=== PATIENT | female | born 2000 | race Caucasian/White ===

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

== ENCOUNTER 2019-04-30 19:09 | Emergency (ER) | payer MEDICAID, SELFPAY ==
[2019-04-30 19:10] VITALS: BP 118/73; PULSE 117; RESP 15; TEMP 36.6; O2SAT 100; BMI 20.1
[2019-04-30 19:49] LABS: Mucous, Urine 0 SEEN /hpf (<or=2+); Red Blood Cells-Urine 0 SEEN /hpf (0-5)
[2019-04-30 19:52] LABS: Absolute Lymphocyte Count 5.07 X10^3/uL (0.83-4.51); Absolute Neutrophil Count 2.8 X10^3/uL (2.0-7.7); Basophil% 1.2 % (0-1); Eosinophil# 0.19 X10^3/uL; Eosinophils% 2.2 % (0-5); Hematocrit 45.5 % (37-47); Hemoglobin 15.2 g/dL (12.0-15.0); Lymphocyte # 5.07 X10^3/ul (4.0); Lymphocyte % 58.3 % (19-41); Mean Corp Hgb Conc 33.4 g/dL (32-36); Mean Corpuscular Hgb 30.2 pg (27.0-32.0); Mean Corpuscular Volume 90.5 fL (81-99); Mean Platelet Vol. 10.6 fl (6.2-12.0); Monocyte# 0.55 X10^3/uL; Monocyte% 6.3 % (0-10); NRBC Flagged by Analyzer 0 % (0-5); Neutrophil # 2.76 X10^3/uL (2.7-7.7); Neutrophil % 31.8 % (47-70); POSITIVE DIFFERENTIAL YES; POSITIVE MORPHOLOGY YES; Platelet Count 190 K/mm3 (150-450); RBC Distribution Width CV 12.5 % (11.6-14.6); RBC Distribution Width SD 41.3 fl (35.1-43.9); Red Blood Count 5.03 M/mm3 (4.2-5.4); White Blood Count 8.7 K/mm3 (4.4-11.0)
[2019-04-30 19:55] LABS: Color, Urine Yellow (Yellow); Glucose, Dipstick Normal (Normal); Ketone-Dipstick Negative (Negative); Leukocyte Esterase-Dipstick 25 /ul (Negative); Nitrite-Dipstick Negative (Negative); Occult Blood-Urine Negative /ul (Negative); Protein-Dipstick 15 mg/dl (Negative); Specific Gravity, Urine 1.015 (1.002-1.030); Urine Bilirubin Dipstick Negative (Negative); Urine Clarity Sl. Cloudy (Clear); Urine Urobilinogen Normal (Normal)
[2019-04-30 19:58] LABS: Differential Indicated SCAN CRITERIA MET; Internal QC Validated? YES +Cl - CLEAR BKGD; Pregnancy, Serum, hCG Quali. NEGATIVE Negative
[2019-04-30 20:02] LABS: Anion Gap 5 (5-15); BUN 11 mg/dL (7-18); Bacteria 1+ /hpf (None Seen); Calcium,Total 8.8 mg/dL (8.5-10.1); Chloride 105 mmol/L (98-107); Creatinine, Serum 0.85 mg/dL (0.55-1.02); EST Glomerular Filtration Rate 91 mL/min (>60); Est Glom Filt Rate - Afr Amer 110 mL/min (>60); Estimated Creatinine Clearance 86.55 ml/min; Glucose 84 mg/dL (74-106); Potassium 3.3 mmol/L (3.5-5.1); Sodium Level 140 mmol/L (136-145); Squamous Epithelial Cells - UA 0-5 SEEN /hpf (5-10); White Blood Cells 0-5 SEEN /hpf (0-5)
[2019-04-30 20:37] LABS: Atypical Lymphocyte RARE %; Differential Comment SCANNED; Platelet Estimate ADEQUATE (ADEQ); Reactive Lymphocyte RARE; Red Cell Morphology NORM C+C NORMAL (NORM C&C)
[2019-04-30] MEDS: Ceftriaxone 1 GM/50 ML BAG IV (20:51)
[2019-04-30 20:56] VITALS: BP 114/75; BP 125/84; BP 127/94; PULSE 74; PULSE 78; PULSE 80
--- NOTE | 2019-04-30 20:58 | ED.VIS.GEN ---
History of Present Illness Chief Complaint: Abd Pain Informant: Patient Onset: Weeks - Approximately 4 weeks Context: Gradual Onset Timing: Continuous Quality: Right lower abdomen and right lower back Location: Pain Current Severity: Mild Maximum Severity: Moderate Worsened by: Nothing in particular Relieved by: Nothing Associated Symptoms: Today pain radiated to the anterior right thigh Narrative: Patient is a 18-year-old female with no sniffing past medical history presents with abdominal pain. She is had numerous visits for abdominal pain with no determine etiology. She denies nausea, vomiting diarrhea. She denies dysuria, frequency, urgency or hematuria. She denies anorexia. She denies pain with walking or coughing. There is no history of trauma. She denies history of ovarian cyst or torsion. She is sexually active and does not use any form of control. She denies symptoms of . There is no history of renal ureterolithiasis. I was informed by numerous staff members that patient believe she needs a liter of fluid. Prior similar symptoms: Yes Recent Illness/Hospitalization: No - Past Medical History (1) No significant past medical history Status: Acute Past Medical History - Allergies and Home Meds Allergies/Adverse Reactions: Allergies tree nut Allergy (Verified 04/30/19 19:15) Anaphylaxis Primary Care Physician: Care Physician,No Primary [Primary Care Provider] - Prior records reviewed: Yes Past Medical History: None Surgical History: tonsillectomy Lives: Alone Smoking Status: Current every day smoker Alcohol: None Drugs: Marijuana Review of Systems General: Denies: Chills, Fever, Sweats Eyes: Denies: Visual changes - bilaterally, Blurred Vision - bilaterally, Diplopia ENT: Denies: Rhinorrhea, Sore throat Cardiovascular: Denies: Chest pain, Palpitations Respiratory: Denies: Dyspnea, Cough, Dyspnea on exertion Gastrointestinal: Reports: Abdominal pain, Nausea. Denies: Vomiting, Diarrhea, Constipation, Melena, Hematochezia, -, - Genitourinary: Denies: Dysuria, Hematuria, Frequency Musculoskeletal: Reports: Back pain, Extremity Pain - Anterior right thigh. Denies: Myalgias, Arthralgias, Neck pain, Swelling, -, - Skin: Denies: Rash, Wounds Neurological: Denies: Headache, Weakness, Numbness Hematologic: Denies: Easy bruising, Easy bleeding Allergy: Denies: Uticaria, Swelling of the mouth Physical Exam Vital Signs/Narrative: Vital Signs Temp Pulse Pulse Pulse Pulse Resp BP 04/30/19 20:56 80 74 78 04/30/19 19:10 97.9 F 117 H 15 118/73 BP BP BP Pulse Ox 04/30/19 20:56 114/75 127/94 H 125/84 H 04/30/19 19:10 100 Inital Vital Signs reviewed: Yes General: Well nourished, Well developed, Unkempt, No Acute Distress Head: Normocephalic, Atraumatic Eyes: Perrl, EOMI, -. Negative for: Pale conjunctiva, Scleral icterus ENT: Moist mucous membranes, No rhinorrhea, TM's clear. Negative for: Dry mucous membranes Neck: Supple, Nontender, No lymphadenopathy, No JVD Cardiovascular: Regular rate, Regular rhythm, No murmurs, Normal S1, Normal S2 Respiratory: No distress, CTA bilaterally, Chest nontender Abdomen: Soft, Nontender, Nondistended, Normal bowel sounds, No masses Back: Nontender, Normal Inspection. Negative for: CVA tenderness, Spinal tenderness Extremities: Nontender, No edema. Negative for: Tenderness Skin: Normal color, No rash, No Trauma. Negative for: Cyanosis, Diaphoresis, Jaundice Neurological: Alert, Oriented x3, Cranial nerves II-XII grossly intact, Normal Strength, Normal Sensation, Normal DTR, Normal Gait Psychological: Normal affect, Normal Mood, Depressed Diagnostic/Tx/Re-eval Laboratory Results 04/30/19 19:26: WBC 8.7, RBC 5.03, Hgb 15.2 H, Hct 45.5, MCV 90.5, MCH 30.2, MCHC 33.4, RDW Std Deviation 41.3, RDW Coeff of Shanda 12.5, Plt Count 190, MPV 10.6, Immature Gran % (Auto) 0.200, Neut % (Auto) 31.8 L, Lymph % (Auto) 58.3 H, [place] % (Auto) 6.3, Eos % (Auto) 2.2, Baso % (Auto) 1.2 H, Absolute Neuts (auto) 2.8, Absolute Lymphs (auto) 5.07 H, Nucleated RBC % 0, Differential Comment SCANNED, Atypical Lymphocytes RARE, Reactive Lymphocytes RARE, Platelet Estimate ADEQUATE, RBC Morphology NORM C+C 04/30/19 19:26: Sodium 140, Potassium 3.3 L, Chloride 105, Carbon Dioxide 30.0, Anion Gap 5, BUN 11, Creatinine 0.85, Estim Creat Clear Calc 86.55, Est GFR (MDRD) Af Amer 110, Est GFR (MDRD) Non-Af 91, BUN/Creatinine Ratio 13.0, Glucose 84, Calcium 8.8 04/30/19 19:26: Serum , Qual NEGATIVE 04/30/19 19:26: Urine Color Yellow, Urine Clarity Sl. Cloudy, Urine pH 7.0, Ur Specific [place] 1.015, Urine Protein 15 H, Urine Glucose (UA) Normal, Urine Ketones Negative, Urine Occult Blood Negative, Urine Nitrite Negative, Urine Bilirubin Negative, Urine Urobilinogen Normal, Ur Leukocyte Esterase 25 H, Urine RBC 0 SEEN, Urine WBC 0-5 SEEN, Ur Squamous Epith Cells 0-5 SEEN, Urine Bacteria 1+, Urine Mucus 0 SEEN Hemoglobin slightly elevated. Basic metabolic panel was marked for slight decrease in potassium at 3.3. Serum test is negative. UA reveals bacteria. Patient was given a dose of Rocephin. - Medical Decision Making Patient on patient's cocci symptoms this may represent mesenteric adenitis, dull pain of unknown etiology, irritable bowel syndrome doubt appendicitis since she had symptoms for 1 month. Urinary tract infection is a possibility as well. Work-up was unremarkable. I was informed that she was found on the floor. She is now complaint of right knee pain. We will reexamine. Patient was informed based on her blood tests and urine specific gravity she is not dehydrated and does not require a liter of fluid which she has requested and I have been informed by 3 separate ER staff members. Was reexamined. There is no evidence of trauma or fracture to the extremities. Patient asked what I would do regarding her pain. I informed her since I do not know the exact cause abdominal pain will treat with Bentyl. ED Disposition - Plan for ED Patient: Disposition: Home or Assisted Living Diagnosis: Right lower quadrant abdominal pain, Bacteria in urine Instructions: ABDOMINAL PAIN, Unknown Cause, (Female), Bladder Infection, Female (Adult) Prescriptions: Dicyclomine HCl [Bentyl] 20 mg PO TIDAC #20 cap Prescription Printed Referrals: Care Physician,No Primary [Primary Care Provider] - Additional Instructions: You have a primary care provider. The name of your primary care provider is located on your [employer] insurance card. If you are not better in 2 to 3 days follow-up with that individual.
[2019-04-30] MEDS: Dicyclomine 10 MG Capsule 20 MG PO (21:33)
[2019-04-30 21:35] VITALS: BP 125/84
--- NOTE | 2019-04-30 21:42 | NURSING ---
pt declined wheelchair for discharge. up and out of unit with steady gait.
== END 2019-04-30 21:46 | disposition home or self-care (01) ==
PROVIDERS: Emergency Provider Emergency Medicine
DX: R10.31 Right lower quadrant pain (principal); R82.71 Bacteriuria; F17.200 Nicotine dependence, unspecified, uncomplicated
CPT/HCPCS: 80048; 81001; 84703; 85025; 96365; 99284; J7050; A4216

== ENCOUNTER 2019-08-16 11:39 | Emergency (ER) | payer MEDICAID, SELFPAY ==
[2019-08-16 11:41] VITALS: BP 122/67; PULSE 115; RESP 16; TEMP 36.7; O2SAT 94
[2019-08-16 12:22] LABS: Red Blood Cells-Urine 0 SEEN /hpf (0-5)
[2019-08-16 12:29] LABS: Internal QC Validated? YES +Cl - CLEAR BKGD; Pregnancy, Serum, hCG Quali. NEGATIVE Negative
[2019-08-16 12:41] LABS: Color, Urine Yellow (Yellow); Glucose, Dipstick Normal (Normal); Ketone-Dipstick 5 mg/dl (Negative); Leukocyte Esterase-Dipstick 25 /ul (Negative); Nitrite-Dipstick Negative (Negative); Occult Blood-Urine 10 /ul (Negative); Protein-Dipstick 15 mg/dl (Negative); Specific Gravity, Urine 1.025 (1.002-1.030); Urine Bilirubin Dipstick Negative (Negative); Urine Clarity Clear (Clear); Urine Urobilinogen 1 mg/dl (Normal)
--- NOTE | 2019-08-16 12:47 | ED.VIS.GEN ---
History of Present Illness Chief Complaint: Abd Pain Detail of Chief Complaint: Last normal menstrual period June 23, 2019 Informant: Patient, Family Onset: Days Context: Gradual Onset Timing: Continuous Quality: Pain Location: Suprapubic Current Severity: Mild Maximum Severity: Moderate Worsened by: If patient pushes on her abdomen Relieved by: Nothing Associated Symptoms: Amenorrhea, frequency, breast tenderness and fullness Narrative: Patient is a 18-year-old G0, P0 white female whose last normal menstrual period was June 23, 2019 who presents with symptoms of . She is sexually active. She uses no form of control. She denies fever, chills or night sweats. She does report nausea and vomiting. She has had several home tests which were negative. She reports lightheadedness. She denies headache. Denies visual, ocular auditory symptoms. She denies cardiac or respiratory symptoms. She does not know her blood type. Prior similar symptoms: No Recent Illness/Hospitalization: No - Past Medical History (1) No significant past medical history Status: Acute Past Medical History - Allergies and Home Meds Allergies/Adverse Reactions: Allergies tree nut Allergy (Verified 08/16/19 11:41) Anaphylaxis Primary Care Physician: Care Physician,No Primary [Primary Care Provider] - Prior records reviewed: No Past Medical History: None Surgical History: tonsillectomy Lives: With Family Smoking Status: Current every day smoker Alcohol: None Drugs: None Review of Systems General: Denies: Chills, Fever, Malaise, Subjective, Sweats Eyes: Denies: Visual changes - bilaterally, Diplopia ENT: Denies: Rhinorrhea, Sore throat Cardiovascular: Denies: Chest pain, Palpitations Respiratory: Denies: Dyspnea, Cough, Dyspnea on exertion Gastrointestinal: Reports: Abdominal pain, Nausea, Vomiting Genitourinary: Reports: Frequency Musculoskeletal: Denies: Myalgias, Arthralgias, Neck pain, Back pain, Swelling, Extremity Pain, -, - Skin: Denies: Rash, Wounds Neurological: Denies: Headache, Weakness, Numbness Hematologic: Denies: Easy bruising, Easy bleeding Physical Exam Vital Signs/Narrative: Vital Signs Temp Pulse Resp BP Pulse Ox 08/16/19 11:41 98.1 F 115 H 16 122/67 H 94 Inital Vital Signs reviewed: Yes General: Well nourished, Well developed, No Acute Distress Head: Normocephalic, Atraumatic Eyes: Perrl, EOMI ENT: Moist mucous membranes, No rhinorrhea Neck: Supple, Nontender Cardiovascular: Regular rate, Regular rhythm, No murmurs Respiratory: No distress, CTA bilaterally, Chest nontender Abdomen: Soft, Nondistended, Normal bowel sounds, Tender - Predominately suprapubic tenderness Back: Nontender, Normal Inspection Extremities: Nontender, No edema Skin: Normal color, No rash Neurological: Alert, Oriented x3, Cranial nerves II-XII grossly intact, Normal Strength, Normal Sensation Psychological: Normal affect, Normal Mood Diagnostic/Tx/Re-eval Laboratory Results 08/16/19 08/16/19 12:00 12:15 Serum , Qual NEGATIVE Urine Color Yellow Urine Clarity Clear Urine pH 5.0 Ur Specific [place] 1.025 Urine Protein 15 H Urine Glucose (UA) Normal Urine Ketones 5 H Urine Occult Blood 10 H Urine Nitrite Negative Urine Bilirubin Negative Urine Urobilinogen 1 H Ur Leukocyte Esterase 25 H Urine RBC 0 SEEN Urine WBC 5-10 SEEN Ur Squamous Epith Cells 0-5 SEEN Urine Bacteria 1+ Urine Mucus 1+ Is consistent with infection. Will treat with Macrobid. - Medical Decision Making Pain serum test and UA to assess patient's symptoms and findings. ED Disposition - Plan for ED Patient: Disposition: Home or Assisted Living Diagnosis: Acute cystitis, Amenorrhea Instructions: Urinary Tract Infections in Women, Amenorrhea Prescriptions: Nitrofurantoin Macrocrystals [Macrobid] 100 mg PO Q12 #10 cap Transmission Status: Pending to [facility] #30 Referrals: Care Physician,No Primary [Primary Care Provider] - Additional Instructions: Follow-up with the primary care physician you were assigned to by your insurance carrier, [employer].
[2019-08-16 12:54] LABS: Bacteria 1+ /hpf (None Seen); Mucous, Urine 1+ /hpf (<or=2+); Squamous Epithelial Cells - UA 0-5 SEEN /hpf (5-10); White Blood Cells 5-10 SEEN /hpf (0-5)
[2019-08-16 13:09] VITALS: PULSE 108; RESP 17; O2SAT 98
[2019-08-16] MEDS: Nitrofurantoin Macrocrystals 100 MG Capsule PO (13:09)
== END 2019-08-16 13:20 | disposition home or self-care (01) ==
PROVIDERS: Emergency Provider Emergency Medicine
DX: N30.00 Acute cystitis without hematuria (principal); N91.2 Amenorrhea, unspecified; F17.200 Nicotine dependence, unspecified, uncomplicated
CPT/HCPCS: 81001; 84703; 99284

== ENCOUNTER 2019-09-02 01:15 | Emergency (ER) | payer MEDICAID, SELFPAY ==
[2019-09-02 01:17] VITALS: BP 113/78; PULSE 87; RESP 17; TEMP 36.9; O2SAT 97; BMI 20.8
[2019-09-02 01:31] LABS: Bedside Glucose 98 mg/dL (70-110)
--- NOTE | 2019-09-02 01:35 | ED.DCSUM_ITS ---
History of Present Illness Chief Complaint: General Illness Informant: Patient Narrative: Patient stated that she is concerned about her blood sugar. She has been checking it with her friend's glucometer. It was 60 earlier today. She has been feeling fatigued. It was also 125 before she came in. No history of diabetes. Patient stated that she recently was diagnosed with a urinary tract infection from the emergency department earlier this month. She never got the Macrobid antibiotic from her father who she said he did filled it. She does not talk to her father anymore and does not want to get it from him. She has mild dysuria. Patient stated she is also had a mild cough for the last couple days. No home treatment. Current severity is mild. Past Medical History - Allergies and Home Meds Allergies/Adverse Reactions: Allergies tree nut Allergy (Verified 09/02/19 01:16) Anaphylaxis Primary Care Physician: Care Physician,No Primary [Primary Care Provider] - Prior records reviewed: Yes Past Medical History: None Surgical History: tonsillectomy Lives: With Family Smoking Status: Current every day smoker Alcohol: None Drugs: None Review of Systems General: Denies: Chills, Fever, Sweats Eyes: Denies: Visual changes - bilaterally, Diplopia ENT: Denies: Rhinorrhea, Sore throat Cardiovascular: Denies: Chest pain, Palpitations Respiratory: Reports: Cough. Denies: Dyspnea, Dyspnea on exertion Gastrointestinal: Denies: Abdominal pain, Nausea, Vomiting, Diarrhea, Melena, Hematochezia Genitourinary: Reports: Dysuria. Denies: Hematuria, Frequency Musculoskeletal: Denies: Back pain, Extremity Pain Skin: Denies: Rash, Wounds Neurological: Reports: Weakness. Denies: Headache, Numbness Physical Exam Vital Signs/Narrative: Vital Signs Temp Pulse Resp BP Pulse Ox 09/02/19 01:17 98.5 F 87 17 113/78 97 General: Well nourished, Well developed, No Acute Distress Head: Normocephalic, Atraumatic Eyes: Perrl, EOMI ENT: Moist mucous membranes, No rhinorrhea Neck: Supple, Nontender Cardiovascular: Regular rate, Regular rhythm, No murmurs Respiratory: No distress, CTA bilaterally, Chest nontender Abdomen: Soft, Nontender, Nondistended, Normal bowel sounds Back: Nontender, Normal Inspection Extremities: Nontender, No edema Skin: Normal color, No rash Neurological: Alert, Oriented x3, Cranial nerves II-XII grossly intact, Normal Strength, Normal Sensation Psychological: Normal affect, Normal Mood Diagnostic/Tx/Re-eval - Medical Decision Making Blood sugar normal in the department. Patient urged to stop checking her blood sugar she has no history of diabetes. There is no need to keep checking this as an outpatient. Urine analysis obtained. It is negative for infection. EKG do ne as the patient stated she felt lightheaded earlier today at home with her low blood sugar. EKG shows sinus rhythm at a rate of 80. Sinus arrhythmia noted. No ischemia. Otherwise normal EKG. Patient reassured. At this time she will follow-up as an outpatient ED Disposition - Plan for ED Patient: Disposition: Home or Assisted Living Diagnosis: Low blood sugar reading Instructions: WEAKNESS, Unk Cause Referrals: Sharad Daniel DO [NON CLINICAL AFFILIATE] -
--- NOTE | 2019-09-02 01:49 | EKG12_ITS ---
Test Reason : Blood Pressure : / mmHG Vent. Rate : 080 BPM Atrial Rate : 080 BPM P-R Int : 154 ms QRS Dur : 080 ms QT Int : 358 ms P-R-T Axes : 063 051 025 degrees QTc Int : 412 ms Sinus rhythm with marked sinus arrhythmia Otherwise normal ECG Confirmed by KATIE CUEVAS, GLADYS ([id number]), editor & co founder FRANCISCA GILES ([id number]) on 09/05/2019 9:54:57 AM Referred By: No Primary Care Physician Confirmed By:GLADYS WILSON MD
[2019-09-02 01:50] LABS: Bacteria 0 SEEN /hpf (None Seen); Mucous, Urine 0 SEEN /hpf (<or=2+); Red Blood Cells-Urine 0 SEEN /hpf (0-5); White Blood Cells 0 SEEN /hpf (0-5)
[2019-09-02 01:51] LABS: Color, Urine Yellow (Yellow); Glucose, Dipstick Normal (Normal); Ketone-Dipstick Negative (Negative); Leukocyte Esterase-Dipstick Negative /ul (Negative); Nitrite-Dipstick Negative (Negative); Occult Blood-Urine Negative /ul (Negative); Protein-Dipstick Negative (Negative); Urine Bilirubin Dipstick Negative (Negative); Urine Clarity Clear (Clear); Urine Urobilinogen Normal (Normal); Urine pH 6.5 (5.0 - 8.0)
[2019-09-02 01:58] LABS: Squamous Epithelial Cells - UA 0-5 SEEN /hpf (5-10)
[2019-09-02 02:26] VITALS: PULSE 92; RESP 18; O2SAT 99
--- NOTE | 2019-09-02 02:26 | ED.RN ---
While giving discharge paperwork, PT states she hates this [facility]. My doctor looked at my like I was crazy. I'm going to [facility] you all. This RN gave sympathetic response, encouraged PT to follow up with Dr. Daniel, her PCP or other provider. PT left yelling obscenities.
== END 2019-09-02 02:28 | disposition home or self-care (01) ==
PROVIDERS: Emergency Provider Emergency Medicine
DX: E16.2 Hypoglycemia, unspecified (principal); R30.0 Dysuria; R05 Cough; Z87.440 Personal history of urinary (tract) infections; F17.200 Nicotine dependence, unspecified, uncomplicated
CPT/HCPCS: 81001; 82962; 93005; 99282

== ENCOUNTER 2019-09-06 07:41 | Emergency (ER) | payer MEDICAID, SELFPAY ==
[2019-09-06] VITALS (15 sets, daily range): BP systolic 99–130; BP diastolic 71–86; PULSE 65–102; RESP 12–18; TEMP 36.9; O2SAT 99–100; BMI 19.8
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
[2019-09-06 08:44] LABS: Mucous, Urine 0 SEEN /hpf (<or=2+)
[2019-09-06 08:46] LABS: Color, Urine Amber (Yellow); Glucose, Dipstick Normal (Normal); Ketone-Dipstick 5 mg/dl (Negative); Leukocyte Esterase-Dipstick 100 /ul (Negative); Nitrite-Dipstick Negative (Negative); Occult Blood-Urine 250 /ul (Negative); Protein-Dipstick 30 mg/dl (Negative); Specific Gravity, Urine 1.015 (1.002-1.030); Urine Bilirubin Dipstick Negative (Negative); Urine Clarity Cloudy (Clear); Urine Urobilinogen Normal (Normal)
[2019-09-06 09:06] LABS: Alcohol, Blood (Medical)-Serum < 3.0 mg/dL
[2019-09-06 09:10] LABS: Red Blood Cells-Urine > 100 SEEN /hpf (0-5)
[2019-09-06 09:11] LABS: Bacteria RARE /hpf (None Seen); Squamous Epithelial Cells - UA 0-5 SEEN /hpf (5-10); White Blood Cells 5-10 SEEN /hpf (0-5)
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
--- NOTE | 2019-09-06 10:47 | EKG12_ITS ---
Test Reason : MENTAL HEALTH Blood Pressure : / mmHG Vent. Rate : 101 BPM Atrial Rate : 101 BPM P-R Int : 168 ms QRS Dur : 078 ms QT Int : 326 ms P-R-T Axes : 051 046 -07 degrees QTc Int : 422 ms Sinus tachycardia Otherwise normal ECG Confirmed by MARCO A CUEVAS, ABRAHAN ([id number]), fashion editor FRANCISCA GILES ([id number]) on 09/08/2019 2:33:02 PM Referred By: ELIS Confirmed By:VIRGINIA STRICKLAND MD
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
[2019-09-06 11:05] LABS: Internal QC Validated? YES +Cl - CLEAR BKGD
[2019-09-06 11:09] LABS: Pregnancy, Urine Negative Negative
[2019-09-06 11:10] LABS: Absolute Lymphocyte Count 2.45 X10^3/uL (0.83-4.51); Absolute Neutrophil Count 2.6 X10^3/uL (2.0-7.7); Basophil# 0.07 X10^3/uL; Basophil% 1.2 % (0-1); Eosinophil# 0.19 X10^3/uL; Eosinophils% 3.4 % (0-5); Hematocrit 39.5 % (37-47); Hemoglobin 13.5 g/dL (12.0-15.0); Lymphocyte # 2.45 X10^3/ul (4.0); Lymphocyte % 43.6 % (19-41); Mean Corp Hgb Conc 34.2 g/dL (32-36); Mean Corpuscular Hgb 29.9 pg (27.0-32.0); Mean Corpuscular Volume 87.4 fL (81-99); Mean Platelet Vol. 10.5 fl (6.2-12.0); Monocyte# 0.32 X10^3/uL; Monocyte% 5.7 % (0-10); NRBC Flagged by Analyzer 0 % (0-5); Neutrophil # 2.58 X10^3/uL (2.7-7.7); Neutrophil % 45.9 % (47-70); Platelet Count 247 K/mm3 (150-450); RBC Distribution Width CV 11.9 % (11.6-14.6); RBC Distribution Width SD 38.3 fl (35.1-43.9); Red Blood Count 4.52 M/mm3 (4.2-5.4); White Blood Count 5.6 K/mm3 (4.4-11.0)
[2019-09-06 11:18] LABS: ALB/GLOB Ratio 1.2 RATIO (0.9-2.4); AST(SGOT) 15 U/L (15-37); Alanine Aminotransfer ALT/SGPT 20 U/L (13-56); Alkaline Phosphatase 45 U/L (45-117); Anion Gap 3 (5-15); BUN 10 mg/dL (7-18); BUN/Creat Ratio 11.8 RATIO (10-20); Calcium,Total 8.9 mg/dL (8.5-10.1); Chloride 109 mmol/L (98-107); Creatinine, Serum 0.85 mg/dL (0.55-1.02); EST Glomerular Filtration Rate 91 mL/min (>60); Est Glom Filt Rate - Afr Amer 110 mL/min (>60); Estimated Creatinine Clearance 85.38 ml/min; Globulin 3.3 g/dL (2.2-4.2); Glucose 98 mg/dL (74-106); Potassium 3.4 mmol/L (3.5-5.1); Protein, Total 7.3 g/dL (6.4-8.2); Sodium Level 140 mmol/L (136-145)
[2019-09-06 11:24] LABS: Amphetamine Urine VISTA NEGATIVE (<1000 ng/mL); Barbiturate Urine VISTA NEGATIVE (< 200 ng/mL); Benzodiazepine Urine VISTA NEGATIVE (< 200 ng/mL); Cocaine Urine VISTA NEGATIVE (< 300 ng/mL); Ecstacy Urine VISTA NEGATIVE (< 500 ng/mL); Methadone Urine VISTA NEGATIVE (< 300 ng/mL); PCP Urine VISTA NEGATIVE (< 25 ng/mL); THC Urine VISTA POSITIVE (< 50 ng/mL); Vista UDS pH Range 7
[2019-09-06] MEDS: Smz/Tmp Ds Tablet 1 TABLET PO ×2 (11:56→21:01)
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
[2019-09-06] MEDS: LORazepam 0.5 MG Tablet PO (14:34)
[2019-09-06] MEDS: Mag Hydrox/Al Hydrox/Simeth 30 ML UDC PO (14:34)
--- NOTE | 2019-09-06 16:11 | CHAPLAIN ---
Type of Pastoral Visit _x__ Initial Visit ___ Follow-up Visit ___ On-call Visit ___ General Patient Visit ___ Spiritual Assessment ___ Family Conference ___ Bereavement ___ Rapid Response ___ Code Blue ___ Other (describe below) Pastoral Care Referral From _x__ Patient ___ Family _x__ Nurse ___ Physician ___ Automobile Accessories Salesperson ___ Cloth Winder Machine Operator ___ Other (describe below) Sacrament/Intervention _x__ Active listening ___ Anointing ___ Oriental Orthodox ___ Bereavement ___ Communion _x__ Katya exploration ___ _x__ Life review _x__ Prayer ___ Reconciliation ___ Sacrament of Sick _x__ Supportive presence ___ Wedding ___ Other (describe below) Pastoral Comments this superintendent fish hatchery was contacted by RN at request of the patient; pt gives her story about events for today and admits that going to a [facility] hospital may be what she needs to get her meds corrected and for help; pt welcomes someone to talk to and the prayer given; pt is calm during this encounter;
[2019-09-06] MEDS: Acetaminophen 500 MG Tablet 1000 MG PO (21:01)
[2019-09-06] MEDS: busPIRone 5 MG Tablet 10 MG PO (21:02)
[2019-09-07] VITALS (8 sets, daily range): BP systolic 99–106; BP diastolic 57–76; PULSE 65–111; RESP 14–18; O2SAT 99–100
[2019-09-07] MEDS: busPIRone 5 MG Tablet 10 MG PO (08:28)
[2019-09-07] MEDS: Smz/Tmp Ds Tablet 1 TABLET PO (08:29)
== END 2019-09-07 08:37 ==
PROVIDERS: Emergency Provider Emergency Medicine
DX: F41.8 Other specified anxiety disorders (principal); N30.00 Acute cystitis without hematuria; R45.851 Suicidal ideations; R05 Cough; J34.89 Other specified disorders of nose and nasal sinuses; Z79.899 Other long term (current) drug therapy; F17.200 Nicotine dependence, unspecified, uncomplicated
CPT/HCPCS: 80053; 80307; 80320; 81001; 81025; 85025; 87086; 87088; 93005; 99285; G0480

== ENCOUNTER 2019-11-25 19:45 | Emergency (ER) | payer MEDICAID, SELFPAY ==
[2019-09-06 07:43] VITALS: BMI 19.8
[2019-11-25 19:45] VITALS: BP 111/78; PULSE 100; RESP 16; TEMP 36.9; O2SAT 100; BMI 21.2
--- NOTE | 2019-11-25 19:53 | EKG12_ITS ---
Test Reason : SOB Blood Pressure : / mmHG Vent. Rate : 099 BPM Atrial Rate : 099 BPM P-R Int : 146 ms QRS Dur : 082 ms QT Int : 330 ms P-R-T Axes : 062 058 032 degrees QTc Int : 423 ms Normal sinus rhythm with sinus arrhythmia Normal ECG Confirmed by KATIE CUEVAS, GLADYS ([id number]), development editor SAV MERCEDES ([id number]) on 11/27/2019 8:31:01 AM Referred By: FARIDA Confirmed By:GLADYS WILSON MD
--- NOTE | 2019-11-25 19:54 | ED.VIS.GEN ---
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 She states for the past 2 to 3 days she has had nausea some vomiting and believes that she is . Last menstrual period was October 19. She also notes an associated cough and rhinorrhea. She states she felt poorly earlier and felt like she may pass out. She also notes the pain to her right middle quadrant of her abdomen. On a social note the patient states that she is homeless but currently staying at a friend's relatives house. Past Medical History - Allergies and Home Meds Allergies/Adverse Reactions: Allergies tree nut Allergy (Verified 11/25/19 19:51) Anaphylaxis Primary Care Physician: Katina Bonilla MD [STAFF PHYSICIAN] - (call to arrange follow up appointment with gynecology) Surgical History: tonsillectomy Smoking Status: Current every day smoker Review of Systems General: Reports: Malaise. Denies: Chills, Fever, Sweats Eyes: Denies: Visual changes - bilaterally, Diplopia ENT: Reports: Rhinorrhea. Denies: Sore throat Cardiovascular: Denies: Chest pain, Palpitations Respiratory: Reports: Dyspnea, Cough. Denies: Dyspnea on exertion Gastrointestinal: Reports: Nausea, Vomiting. Denies: Abdominal pain, Diarrhea, Melena, Hematochezia Genitourinary: Reports: - - Concern for . Denies: Dysuria, Hematuria, Frequency Musculoskeletal: Denies: Back pain, Extremity Pain Skin: Denies: Rash, Wounds Neurological: Denies: Headache, Weakness, Numbness Physical Exam Vital Signs/Narrative: Vital Signs Temp Pulse Resp BP Pulse Ox 11/25/19 19:45 98.5 F 100 16 111/78 100 General: Well nourished, Well developed, No Acute Distress Head: Normocephalic, Atraumatic Eyes: Perrl, EOMI ENT: Moist mucous membranes, Nasal congestion Neck: Supple, Nontender Cardiovascular: Regular rate, No murmurs, Tachycardia Respiratory: No distress, CTA bilaterally, Chest nontender Abdomen: Soft, Nontender, Nondistended, Normal bowel sounds Back: Nontender, Normal Inspection Extremities: Nontender, No edema Skin: Normal color, No rash Neurological: Alert, Oriented x3, Cranial nerves II-XII grossly intact, Normal Strength, Normal Sensation Psychological: Normal affect, Normal Mood Diagnostic/Tx/Re-eval - EKG Initial EKG Interpretation: Sinus Rhythm, Sinus Arrythmia - KG showed a normal sinus rhythm with a sinus arrhythmia at a rate of 99 without ectopy or concerning features for ACS. - Medical Decision Making Basic labs were normal. test was normal. Urinalysis negative. EKG showed a sinus rhythm with a sinus arrhythmia at a rate of 99. She received IV fluids and Zofran. At this point patient will be discharged home. I have asked that she follow-up with FINANCE CONTROLLER for her late menstrual cycle. I will write for Zofran at home. ED Disposition - Plan for ED Patient: Disposition: Home or Assisted Living Diagnosis: Near syncope, Vomiting Instructions: ED Near Syncope Vasovagal, ED Nausea Vomiting Adult Prescriptions: Ondansetron [Zofran Odt] 4 mg PO Q6H PRN PRN #14 tab PRN Reason: Nausea Transmission Status: Pending to [facility] #30 Referrals: Katina Bonilla MD [STAFF PHYSICIAN] - (call to arrange follow up appointment with gynecology)
[2019-11-25] MEDS: 0.9% Normal Saline 1,000 ML 1000 ML IV (20:15)
[2019-11-25] MEDS: Ondansetron 4 MG/2 ML Vial IV (20:15)
[2019-11-25 21:22] LABS: Bacteria 0 SEEN /hpf (None Seen); Mucous, Urine 0 SEEN /hpf (<or=2+); Red Blood Cells-Urine 0 SEEN /hpf (0-5)
[2019-11-25 21:26] LABS: Color, Urine Yellow (Yellow); Glucose, Dipstick Normal (Normal); Ketone-Dipstick Negative (Negative); Leukocyte Esterase-Dipstick 25 /ul (Negative); Nitrite-Dipstick Negative (Negative); Occult Blood-Urine Negative /ul (Negative); Protein-Dipstick Negative (Negative); Specific Gravity, Urine 1.015 (1.002-1.030); Urine Bilirubin Dipstick Negative (Negative); Urine Clarity Clear (Clear); Urine Urobilinogen Normal (Normal); Urine pH 6.5 (5.0 - 8.0)
[2019-11-25 21:27] LABS: Absolute Lymphocyte Count 3.62 X10^3/uL (0.83-4.51); Absolute Neutrophil Count 3.5 X10^3/uL (2.0-7.7); Basophil# 0.06 X10^3/uL; Basophil% 0.7 % (0-1); Eosinophil# 0.17 X10^3/uL; Eosinophils% 2.1 % (0-5); Hematocrit 44.7 % (37-47); Hemoglobin 14.9 g/dL (12.0-15.0); Lymphocyte # 3.62 X10^3/ul (4.0); Lymphocyte % 44.9 % (19-41); Mean Corp Hgb Conc 33.3 g/dL (32-36); Mean Corpuscular Hgb 30.6 pg (27.0-32.0); Mean Corpuscular Volume 91.8 fL (81-99); Mean Platelet Vol. 10.6 fl (6.2-12.0); Monocyte# 0.65 X10^3/uL; Monocyte% 8.1 % (0-10); NRBC Flagged by Analyzer 0 % (0-5); Neutrophil # 3.54 X10^3/uL (2.7-7.7); Platelet Count 278 K/mm3 (150-450); RBC Distribution Width CV 12.8 % (11.6-14.6); RBC Distribution Width SD 42.5 fl (35.1-43.9); Red Blood Count 4.87 M/mm3 (4.2-5.4); White Blood Count 8.1 K/mm3 (4.4-11.0)
[2019-11-25 21:31] LABS: Squamous Epithelial Cells - UA 5-10 SEEN /hpf (5-10)
[2019-11-25 21:32] LABS: White Blood Cells 0-5 SEEN /hpf (0-5)
[2019-11-25 21:35] LABS: Internal QC Validated? YES +Cl - CLEAR BKGD; Pregnancy, Serum, hCG Quali. NEGATIVE Negative
[2019-11-25 21:41] LABS: ALB/GLOB Ratio 1.3 RATIO (0.9-2.4); AST(SGOT) 36 U/L (15-37); Alanine Aminotransfer ALT/SGPT 40 U/L (13-56); Albumin, Serum 4.3 g/dL (3.2-5.0); Alkaline Phosphatase 59 U/L (45-117); Anion Gap 3 (5-15); BUN 13 mg/dL (7-18); BUN/Creat Ratio 16.5 RATIO (10-20); Calcium,Total 9.4 mg/dL (8.5-10.1); Chloride 107 mmol/L (98-107); Creatinine, Serum 0.79 mg/dL (0.55-1.02); EST Glomerular Filtration Rate 99 mL/min (>60); Est Glom Filt Rate - Afr Amer 120 mL/min (>60); Estimated Creatinine Clearance 93.97 ml/min; Globulin 3.4 g/dL (2.2-4.2); Glucose 78 mg/dL (74-106); Potassium 3.9 mmol/L (3.5-5.1); Protein, Total 7.7 g/dL (6.4-8.2); Sodium Level 140 mmol/L (136-145)
[2019-11-25 22:04] VITALS: BP 101/72; PULSE 84; RESP 17
== END 2019-11-25 22:05 | disposition home or self-care (01) ==
PROVIDERS: Emergency Provider Emergency Medicine
DX: R55 Syncope and collapse (principal); R11.10 Vomiting, unspecified; R05 Cough; J34.89 Other specified disorders of nose and nasal sinuses; R06.00 Dyspnea, unspecified; R10.13 Epigastric pain; Z59.0 Homelessness; F17.200 Nicotine dependence, unspecified, uncomplicated
CPT/HCPCS: 80053; 81001; 84703; 85025; 93005; 96361; 96374; 99285; J7030; J2405

== ENCOUNTER 2019-11-28 12:47 | Emergency (ER) | payer MEDICAID, SELFPAY ==
[2019-11-28 12:47] VITALS: BP 99/69; PULSE 87; RESP 16; TEMP 36.7; O2SAT 99; BMI 20.5
--- NOTE | 2019-11-28 12:59 | RAD_ITS ---
STUDY: X-RAY - RIGHT FOOT CLINICAL: Female, 19 years old. PT FELL DOWN STAIRS LAST NIGHT, PAIN TECHNIQUE: 3 view(s) of the foot. COMPARISON: None. FINDINGS: Normal talus, calcaneus, and tarsal bones. Normal visualized subtalar, talonavicular, calcaneocuboid, tarsal and tarsometatarsal articulations. Normal metatarsi. Normal metatarsophalangeal joint of the great toe. Normal tibial and fibular sesamoid bones. Normal interphalangeal joint of the great toe. Normal phalanges of the great toe. Normal second through fifth metatarsophalangeal joints. Normal interphalangeal joints and phalanges of the lesser toes. The soft tissue structures are unremarkable. RAD/Foot min 3 Views IMPRESSION: Normal x-ray examination of the foot. Electronically Signed: Chris Romero, at 13:17 EDT , Service support ,
--- NOTE | 2019-11-28 12:59 | RAD_ITS ---
STUDY: X-RAY - LEFT FOOT CLINICAL: Female, 19 years old. PT FELL DOWN STAIRS LAST NIGHT, PAIN TECHNIQUE: 3 view(s) of the foot. COMPARISON: None. FINDINGS: Normal talus, calcaneus, and tarsal bones. Normal visualized subtalar, talonavicular, calcaneocuboid, tarsal and tarsometatarsal articulations. Normal metatarsi. Normal metatarsophalangeal joint of the great toe. Normal tibial and fibular sesamoid bones. Normal interphalangeal joint of the great toe. Normal phalanges of the great toe. Normal second through fifth metatarsophalangeal joints. Normal interphalangeal joints and phalanges of the lesser toes. The soft tissue structures are unremarkable. RAD/Foot min 3 Views IMPRESSION: Normal x-ray examination of the foot. Electronically Signed: Chris Romero, at 13:18 EDT , Service support ,
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
[2019-11-28] MEDS: Ibuprofen 600 MG Tablet PO (13:36)
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
== END 2019-11-28 13:54 | disposition home or self-care (01) ==
LOC: ED 13:35
PROVIDERS: Emergency Provider Emergency Medicine
DX: M79.671 Pain in right foot (principal); M79.672 Pain in left foot; M79.89 Other specified soft tissue disorders; W10.9XXA Fall (on) (from) unspecified stairs and steps, initial encounter; Y93.9 Activity, unspecified; Y92.9 Unspecified place or not applicable; Z59.0 Homelessness; F17.200 Nicotine dependence, unspecified, uncomplicated
CPT/HCPCS: 73630; 99282

== ENCOUNTER 2019-12-07 10:42 | Emergency (ER) | payer MEDICAID, SELFPAY ==
[2019-12-07 10:43] VITALS: BP 108/74; PULSE 98; RESP 16; TEMP 36.9; O2SAT 100; BMI 21.9
[2019-12-07 11:07] LABS: Absolute Lymphocyte Count 2.48 X10^3/uL (0.83-4.51); Basophil# 0.05 X10^3/uL; Basophil% 0.8 % (0-1); Eosinophil# 0.18 X10^3/uL; Eosinophils% 2.9 % (0-5); Hemoglobin 13.3 g/dL (12.0-15.0); Lymphocyte # 2.48 X10^3/ul (4.0); Mean Corp Hgb Conc 33.3 g/dL (32-36); Mean Corpuscular Hgb 30.9 pg (27.0-32.0); Mean Platelet Vol. 10.2 fl (6.2-12.0); Monocyte# 0.46 X10^3/uL; Monocyte% 7.4 % (0-10); NRBC Flagged by Analyzer 0 % (0-5); Neutrophil # 3.01 X10^3/uL (2.7-7.7); Neutrophil % 48.6 % (47-70); Platelet Count 233 K/mm3 (150-450); RBC Distribution Width CV 12.3 % (11.6-14.6); RBC Distribution Width SD 42.2 fl (35.1-43.9); White Blood Count 6.2 K/mm3 (4.4-11.0)
[2019-12-07] MEDS: 0.9% Normal Saline 1,000 ML 1000 ML IV (11:07)
[2019-12-07] MEDS: Ondansetron 4 MG/2 ML Vial IV (11:08)
[2019-12-07] MEDS: Ketorolac 15 MG/ML Vial IV (11:09)
[2019-12-07 11:33] LABS: hCG Titer Quant., Serum < 1 mIU/mL (1-3)
--- NOTE | 2019-12-07 11:40 | ED.DCSUM_ITS ---
- ER Visit Summary Date of Service: 12/07/19 Chief Complaint: Vaginal bleeding History of Present Illness: The patient is a 19 F with no branch officer or primary care physician. She reports that she has vaginal bleeding that began yesterday. Currently it is spotting. She reports that at worst it was running down my legs. She reports that her last menstrual period was October 31. When asked if she has been previously she reports yes, but when asked how many times she reports I do not know. Patient complains of cramping suprapubic pain is 10 of 10 at worst and 7 out of 10 currently. Is worsened by movement and relieved by remaining still. She denies any dysuria or frequency. Physical Examination: Vitals: Stable. Afebrile. General: Well-nourished and well-developed. Head: Normocephalic atraumatic. Neck: Supple, no lymphadenopathy. No JVD. Nontender. Cardiovascular: Regular rate and rhythm. No murmurs. Respiratory: No respiratory distress. Clear to auscultation bilaterally. Abdominal: Soft, mild suprapubic tenderness to palpation, nondistended, normal bowel sounds. No guarding, rebound, or peritoneal signs. Back: Nontender. Extremities: Nontender, no edema. Skin: Normal color, no rash. Neurologic: Alert and oriented ?3. Cranial nerves II through XII are intact. Normal strength and sensation. Psych: Normal affect. Test Results: CBC is normal. Quantitative hCG is less than 1. Pelvic ultrasound was canceled when the test returned negative. Emergency Department Course and Treatment: Patient was given a dose of Toradol and Zofran IV. She was given a liter normal saline. She is resting comfortably. Treatment Plan: Patient will be discharged with Zofran for her nausea. Instructed use Tylenol and/or ibuprofen for pain. Follow-up with Dr. Johnson as needed. Return to the emergency department for any worsening symptoms. Disposition: To home in improved and stable condition. Impression: 1. Vaginal bleeding. This note was generated with [employer] dictation software. It may contain incorrect words, spelling, and punctuation that were not noted in review of the chart prior to signing ED Disposition - Plan for ED Patient: Instructions: ED Bleed Irregular Vaginal Prescriptions: Ondansetron [Zofran Odt] 4 mg PO Q8H PRN PRN #10 tablet PRN Reason: Nausea Referrals: Allyson Johnson DO [STAFF PHYSICIAN] - 1 Week if not improving
== END 2019-12-07 12:22 | disposition home or self-care (01) ==
PROVIDERS: Emergency Provider Emergency Medicine
DX: N93.9 Abnormal uterine and vaginal bleeding, unspecified (principal); R10.2 Pelvic and perineal pain; R68.83 Chills (without fever); R11.2 Nausea with vomiting, unspecified; R51 Headache; J45.909 Unspecified asthma, uncomplicated; F17.200 Nicotine dependence, unspecified, uncomplicated
CPT/HCPCS: 84702; 85025; 86900; 86901; 96361; 96374; 96375; 99285; J7030; J2405

== ENCOUNTER 2020-01-09 09:28 | Emergency (ER) | payer MEDICAID, SELFPAY ==
[2020-01-09 09:29] VITALS: BP 105/64; PULSE 86; RESP 16; TEMP 36.7; O2SAT 100; BMI 23.6
--- NOTE | 2020-01-09 09:36 | EKG12_ITS ---
Test Reason : WEAKNESS Blood Pressure : / mmHG Vent. Rate : 076 BPM Atrial Rate : 076 BPM P-R Int : 164 ms QRS Dur : 084 ms QT Int : 384 ms P-R-T Axes : 060 061 004 degrees QTc Int : 432 ms Normal sinus rhythm Normal ECG Confirmed by KEVAN GRIFFITH ([id number]), material expeditor SAV MERCEDES ([id number]) on 01/11/2020 2:32:24 PM Referred By: OLIVER Confirmed By:KEVAN GRIFFITH
--- NOTE | 2020-01-09 09:37 | ED.VIS.GEN ---
History of Present Illness Chief Complaint: Weakness Informant: Patient Onset: Yesterday Narrative: Sent secondary to generalized weakness and concern for dehydration. She states she is homeless and has not been drinking much. She reports feeling weak and lightheaded. She claims of passed out 4 times yesterday and twice today. Throughout my entire interview she is texting on her phone would not look away from her phone to answer questions. - Past Medical History (1) Anxiety with depression Status: Chronic Past Medical History - Allergies and Home Meds Allergies/Adverse Reactions: Allergies tree nut Allergy (Verified 01/09/20 09:33) Anaphylaxis Primary Care Physician: Care Physician,No Primary [Primary Care Provider] - Prior records reviewed: Yes Surgical History: tonsillectomy Lives: Homeless Smoking Status: Current every day smoker Review of Systems General: Denies: Chills, Fever Eyes: Denies: Visual changes - bilaterally ENT: Denies: Bilateral ear pain Cardiovascular: Denies: Chest pain Respiratory: Denies: Dyspnea Gastrointestinal: Denies: Nausea, Vomiting Genitourinary: Denies: Dysuria Musculoskeletal: Reports: Extremity Pain - Feet and ankles are sore Skin: Denies: Rash Neurological: Reports: Weakness - Generalized weakness. Denies: Headache Hematologic: Denies: Easy bruising, Easy bleeding Allergy: Denies: Uticaria Physical Exam Vital Signs/Narrative: Vital Signs Temp Pulse Resp BP Pulse Ox 01/09/20 09:29 98.0 F 86 16 105/64 100 Inital Vital Signs reviewed: Yes General: Well nourished, Well developed Head: Normocephalic ENT: Moist mucous membranes Neck: Supple Cardiovascular: Regular rate, Regular rhythm Respiratory: No distress Abdomen: Soft, Nontender Extremities: Nontender Skin: Normal color Neurological: Alert, Oriented x3 Psychological: Normal affect Diagnostic/Tx/Re-eval Laboratory Results 01/09/20 01/09/20 01/09/20 09:30 09:30 09:30 WBC 4.4 RBC 4.15 L Hgb 12.8 Hct 38.4 MCV 92.5 MCH 30.8 MCHC 33.3 RDW Std Deviation 40.8 RDW Coeff of Shanda 12.2 Plt Count 211 MPV 10.1 Immature Gran % (Auto) 0.200 Neut % (Auto) 36.3 L Lymph % (Auto) 49.3 H [place] % (Auto) 8.1 Eos % (Auto) 5.4 H Baso % (Auto) 0.7 Absolute Neuts (auto) 1.6 L Absolute Lymphs (auto) 2.19 Nucleated RBC % 0 Sodium 144 Potassium 3.3 L Chloride 108 H Carbon Dioxide 29.0 Anion Gap 7 BUN 24 H Creatinine 0.81 Estim Creat Clear Calc 91.65 Est GFR (MDRD) Af Amer 116 Est GFR (MDRD) Non-Af 96 BUN/Creatinine Ratio 29.7 H Glucose 104 Calcium 8.6 Serum , Qual NEGATIVE Urine Color Urine Clarity Urine pH Ur Specific [place] Urine Protein Urine Glucose (UA) Urine Ketones Urine Occult Blood Urine Nitrite Urine Bilirubin Urine Urobilinogen Ur Leukocyte Esterase Urine RBC Urine WBC Ur Squamous Epith Cells Urine Bacteria Urine Mucus 01/09/20 11:12 WBC RBC Hgb Hct MCV MCH MCHC RDW Std Deviation RDW Coeff of Shanda Plt Count MPV Immature Gran % (Auto) Neut % (Auto) Lymph % (Auto) [place] % (Auto) Eos % (Auto) Baso % (Auto) Absolute Neuts (auto) Absolute Lymphs (auto) Nucleated RBC % Sodium Potassium Chloride Carbon Dioxide Anion Gap BUN Creatinine Estim Creat Clear Calc Est GFR (MDRD) Af Amer Est GFR (MDRD) Non-Af BUN/Creatinine Ratio Glucose Calcium Serum , Qual Urine Color Yellow Urine Clarity Sl. Cloudy Urine pH 7.0 Ur Specific [place] 1.010 Urine Protein Negative Urine Glucose (UA) Normal Urine Ketones Negative Urine Occult Blood Negative Urine Nitrite Negative Urine Bilirubin Negative Urine Urobilinogen Normal Ur Leukocyte Esterase Negative Urine RBC 0 SEEN Urine WBC 0-5 SEEN Ur Squamous Epith Cells 0-5 SEEN Urine Bacteria 0 SEEN Urine Mucus 0 SEEN - EKG Initial EKG Interpretation: Sinus Rhythm - Sinus at 76. No acute ischemia. - Medical Decision Making Patient was given a liter IV fluids here. She is given 40 mEq of potassium for slight hypokalemia. No evidence of dehydration on lab work or urinalysis. ED Disposition - Plan for ED Patient: Disposition: Home or Assisted Living Diagnosis: Generalized weakness Instructions: ED Weakness [facility] Referrals: Anahi Baldwin MD [STAFF PHYSICIAN] - As Needed
[2020-01-09] MEDS: 0.9% Normal Saline 1,000 ML 1000 ML IV (09:40)
[2020-01-09 09:59] LABS: Absolute Lymphocyte Count 2.19 X10^3/uL (0.83-4.51); Absolute Neutrophil Count 1.6 X10^3/uL (2.0-7.7); Basophil# 0.03 X10^3/uL; Basophil% 0.7 % (0-1); Eosinophil# 0.24 X10^3/uL; Eosinophils% 5.4 % (0-5); Hematocrit 38.4 % (37-47); Hemoglobin 12.8 g/dL (12.0-15.0); Lymphocyte # 2.19 X10^3/ul (4.0); Lymphocyte % 49.3 % (19-41); Mean Corp Hgb Conc 33.3 g/dL (32-36); Mean Corpuscular Hgb 30.8 pg (27.0-32.0); Mean Corpuscular Volume 92.5 fL (81-99); Mean Platelet Vol. 10.1 fl (6.2-12.0); Monocyte# 0.36 X10^3/uL; Monocyte% 8.1 % (0-10); NRBC Flagged by Analyzer 0 % (0-5); Neutrophil # 1.61 X10^3/uL (2.7-7.7); Neutrophil % 36.3 % (47-70); Platelet Count 211 K/mm3 (150-450); RBC Distribution Width CV 12.2 % (11.6-14.6); RBC Distribution Width SD 40.8 fl (35.1-43.9); Red Blood Count 4.15 M/mm3 (4.2-5.4); White Blood Count 4.4 K/mm3 (4.4-11.0)
[2020-01-09 10:01] LABS: Anion Gap 7 (5-15); BUN 24 mg/dL (7-18); BUN/Creat Ratio 29.7 RATIO (10-20); Calcium,Total 8.6 mg/dL (8.5-10.1); Chloride 108 mmol/L (98-107); Creatinine, Serum 0.81 mg/dL (0.55-1.02); EST Glomerular Filtration Rate 96 mL/min (>60); Est Glom Filt Rate - Afr Amer 116 mL/min (>60); Estimated Creatinine Clearance 91.65 ml/min; Glucose 104 mg/dL (74-106); Potassium 3.3 mmol/L (3.5-5.1); Sodium Level 144 mmol/L (136-145)
[2020-01-09 10:21] LABS: Internal QC Validated? YES +Cl - CLEAR BKGD
[2020-01-09 10:22] LABS: Pregnancy, Serum, hCG Quali. NEGATIVE Negative
[2020-01-09 11:15] LABS: Bacteria 0 SEEN /hpf (None Seen); Mucous, Urine 0 SEEN /hpf (<or=2+)
[2020-01-09 11:17] LABS: Color, Urine Yellow (Yellow); Glucose, Dipstick Normal (Normal); Ketone-Dipstick Negative (Negative); Leukocyte Esterase-Dipstick Negative /ul (Negative); Nitrite-Dipstick Negative (Negative); Occult Blood-Urine Negative /ul (Negative); Protein-Dipstick Negative (Negative); Urine Bilirubin Dipstick Negative (Negative); Urine Clarity Sl. Cloudy (Clear); Urine Urobilinogen Normal (Normal)
[2020-01-09 11:24] LABS: Red Blood Cells-Urine 0 SEEN /hpf (0-5); Squamous Epithelial Cells - UA 0-5 SEEN /hpf (5-10); White Blood Cells 0-5 SEEN /hpf (0-5)
[2020-01-09 11:58] VITALS: RESP 18
== END 2020-01-09 12:00 | disposition home or self-care (01) ==
PROVIDERS: Emergency Provider Emergency Medicine
DX: R53.1 Weakness (principal); E87.6 Hypokalemia; M79.672 Pain in left foot; M79.671 Pain in right foot; M25.572 Pain in left ankle and joints of left foot; M25.571 Pain in right ankle and joints of right foot; Z59.0 Homelessness; F17.200 Nicotine dependence, unspecified, uncomplicated
CPT/HCPCS: 80048; 81001; 84703; 85025; 93005; 96360; 99285; A4216

== ENCOUNTER 2020-01-27 16:38 | Emergency (ER) | payer MEDICAID, SELFPAY ==
[2020-01-27 16:39] VITALS: BP 121/84; PULSE 99; RESP 16; TEMP 37.1; O2SAT 99; BMI 23.8
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
--- NOTE | 2020-01-27 17:17 | ED.RN ---
PT CAME TO NURSES STATION STATING SHE DOESNT WANT TO BE HERE AND NO LONGER WANTS ANY TESTING DONE. PT LEAVES DEPARTMENT AND EXITS BUILDING.
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
== END 2020-01-27 17:39 | disposition left against medical advice (07) ==
LOC: ED 17:17
PROVIDERS: Emergency Provider Emergency Medicine
DX: S09.90XA Unspecified injury of head, initial encounter (principal); S60.221A Contusion of right hand, initial encounter; S60.222A Contusion of left hand, initial encounter; J02.9 Acute pharyngitis, unspecified; H53.8 Other visual disturbances; M54.2 Cervicalgia; M54.9 Dorsalgia, unspecified; R11.2 Nausea with vomiting, unspecified; Y04.0XXA Assault by unarmed brawl or fight, initial encounter; Y93.9 Activity, unspecified; Y92.9 Unspecified place or not applicable; J45.909 Unspecified asthma, uncomplicated; F41.9 Anxiety disorder, unspecified; Z79.899 Other long term (current) drug therapy; F17.200 Nicotine dependence, unspecified, uncomplicated
CPT/HCPCS: 99284

== ENCOUNTER 2020-02-12 19:17 | Emergency (ER) | payer MEDICAID, SELFPAY ==
[2020-02-12 19:18] VITALS: BP 116/72; PULSE 104; RESP 18; TEMP 37; O2SAT 98; BMI 19.2
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
== END 2020-02-12 21:30 | disposition home or self-care (01) ==
PROVIDERS: Emergency Provider Emergency Medicine
DX: S63.502A Unspecified sprain of left wrist, initial encounter (principal); S60.222A Contusion of left hand, initial encounter; W51.XXXA Accidental striking against or bumped into by another person, initial encounter; Y93.9 Activity, unspecified; Y92.9 Unspecified place or not applicable; F17.200 Nicotine dependence, unspecified, uncomplicated
CPT/HCPCS: 73110; 99284

== ENCOUNTER 2020-03-06 15:05 | Emergency (ER) | payer MEDICAID, SELFPAY ==
[2020-03-06 15:07] VITALS: BP 91/66; PULSE 76; RESP 18; TEMP 36.8; O2SAT 100; BMI 24.3
--- NOTE | 2020-03-06 15:46 | US_ITS ---
STUDY: ULTRASOUND OF THE FEMALE PELVIS - COMPLETE REASON FOR EXAM: Female, 19 years old. PELVIC PAIN. Recent miscarriage. LMP: 01/05/2020 TECHNIQUE: Transabdominal and Transvaginal TECHNICAL QUALITY: Adequate. COMPARISON: None. FINDINGS: The uterus is retroverted and is in a midline position. The uterus measures 7.6 x 5.5 x 4.0 cm. Normal uterine cervix. The endometrium measures 13 mm in thickness, and is hyperechoic. Endometrial echoes are heterogeneous. No definite endometrial fluid. Cannot exclude small amounts of retained products of conception. The right ovary is visualized. The right ovary measures 2.1 x 2.2 x 1.8 cm. There is no right ovarian cyst or ovarian mass. There is no visualized right adnexal mass or complex lesion. There is normal arterial and normal venous vascularity. The left ovary is visualized. The left ovary measures 3.5 x 2.5 x 2.0 cm. Complex 2 cm septated cystic structure seen in the left ovary. There is normal arterial and normal venous vascularity. There is minimal fluid in the cul-de-sac. US/Transvaginal Non- IMPRESSION: Endometrial echoes are prominent and heterogeneous. No definite endometrial fluid. Cannot exclude small amounts of retained products of conception. 2 cm complex cystic structure of the left ovary. Electronically Signed: Tino Saldivar MD at 18:10 EDT , Service support ,
[2020-03-06] MEDS: 0.9% Normal Saline 1,000 ML 1000 ML IV (16:01)
[2020-03-06] MEDS: Ondansetron 4 MG/2 ML Vial IV ×2 (16:01→19:12)
[2020-03-06] MEDS: Morphine 4 MG/ML Syringe IV ×3 (16:02→19:15)
--- NOTE | 2020-03-06 16:54 | ED.DCSUM_ITS ---
- ER Visit Summary Date of Service: 03/06/20 Chief Complaint: Pelvic pain History of Present Illness: The patient is a 19 F presenting with pelvic pain. Patient states her last menstrual period was January 04. She took a home test was which was positive. She started having heavy vaginal bleeding over the last 2 days. She was seen at the care center and had a negative test yesterday. She continues to have pelvic cramping and vaginal bleeding. History of 2 previous miscarriages. Denies other complaints. Physical Examination: Vitals are stable. Patient is afebrile. Alert no acute distress. HEENT exam is unremarkable. Neck is supple. Lungs are clear and equal bilaterally. Heart is regular rate and rhythm. Abdomen is soft suprapubic tenderness with no rebound or guarding. Pelvic: Small amount of blood in vaginal vault. This is cleared with cotton tip swab. No significant active bleeding Extremities are unremarkable. Skin is warm and dry. Remainder of exam is unremarkable. Emergency Department Course and Treatment: Blood type is A positive. hCG quant less than 1. Pelvic ultrasound was obtained and is pending at this time. This will be checked out to the oncoming physician. Disposition: pending Impression: Pelvic pain This note was generated with [employer] dictation software. It may contain incorrect words, spelling, and punctuation that were not noted in review of the chart prior to signing ED Disposition - Plan for ED Patient: Referrals: Care Physician,No Primary [Primary Care Provider] -
[2020-03-06 17:13] LABS: hCG Titer Quant., Serum < 1 mIU/mL (1-3)
[2020-03-06 19:10] VITALS: BP 124/86; PULSE 79; RESP 18; O2SAT 100
[2020-03-06 20:15] VITALS: BP 122/79; PULSE 78; RESP 16; O2SAT 97
== END 2020-03-06 20:17 | disposition home or self-care (01) ==
PROVIDERS: Emergency Provider Emergency Medicine
DX: R10.2 Pelvic and perineal pain (principal); J45.909 Unspecified asthma, uncomplicated; Z72.0 Tobacco use
CPT/HCPCS: 76830; 84702; 86900; 86901; 93976; 96361; 96374; 96375; 96376; 99285; J7030; A4216; J2405

== ENCOUNTER → 2020-03-15 14:59 | Outpatient (CLI) | payer MEDICAID, SELFPAY ==
[2020-03-06 15:07] VITALS: BMI 24.3
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
== END ==
PROVIDERS: Referring Provider Obstetrics & Gynecology; Visit Provider Obstetrics & Gynecology
DX: O73.0 Retained placenta without hemorrhage (principal); Z3A.00 Weeks of gestation of pregnancy not specified
CPT/HCPCS: 76830

== ENCOUNTER 2020-03-20 22:49 | Emergency (ER) | payer MEDICAID, SELFPAY ==
[2020-03-20 22:56] VITALS: BP 117/77; PULSE 90; RESP 16; TEMP 36.8; O2SAT 98; BMI 23.3
--- NOTE | 2020-03-20 23:10 | EKG12_ITS ---
Test Reason : OVERDOSE Blood Pressure : / mmHG Vent. Rate : 082 BPM Atrial Rate : 082 BPM P-R Int : 152 ms QRS Dur : 092 ms QT Int : 372 ms P-R-T Axes : 065 058 -02 degrees QTc Int : 434 ms Normal sinus rhythm Nonspecific ST abnormality Abnormal QRS-T angle, consider primary T wave abnormality Abnormal ECG Confirmed by MARCO A CUEVAS, ABRAHAN ([id number]), business editor GLO VARELA ([id number]) on 03/25/2020 9:35:35 AM Referred By: CLEVE Confirmed By:VIRGINIA STRICKLAND MD
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
[2020-03-20 23:33] LABS: Internal QC Validated? YES +Cl - CLEAR BKGD; Pregnancy, Serum, hCG Quali. NEGATIVE Negative
[2020-03-20 23:35] LABS: Absolute Lymphocyte Count 2.71 X10^3/uL (0.83-4.51); Absolute Neutrophil Count 4.1 X10^3/uL (2.0-7.7); Basophil# 0.07 X10^3/uL; Basophil% 0.9 % (0-1); Eosinophil# 0.06 X10^3/uL; Eosinophils% 0.8 % (0-5); Hemoglobin 14.4 g/dL (12.0-15.0); Lymphocyte # 2.71 X10^3/ul (4.0); Lymphocyte % 36.6 % (19-41); Mean Corpuscular Hgb 31.8 pg (27.0-32.0); Mean Corpuscular Volume 88.3 fL (81-99); Mean Platelet Vol. 10.4 fl (6.2-12.0); Monocyte# 0.41 X10^3/uL; Monocyte% 5.5 % (0-10); NRBC Flagged by Analyzer 0 % (0-5); Neutrophil # 4.14 X10^3/uL (2.7-7.7); Neutrophil % 56.1 % (47-70); Platelet Count 284 K/mm3 (150-450); RBC Distribution Width CV 11.9 % (11.6-14.6); RBC Distribution Width SD 38.1 fl (35.1-43.9); Red Blood Count 4.53 M/mm3 (4.2-5.4); White Blood Count 7.4 K/mm3 (4.4-11.0)
[2020-03-20 23:39] LABS: Amphetamine Urine VISTA POSITIVE (<1000 ng/mL); Barbiturate Urine VISTA NEGATIVE (< 200 ng/mL); Benzodiazepine Urine VISTA NEGATIVE (< 200 ng/mL); Cocaine Urine VISTA NEGATIVE (< 300 ng/mL); Ecstacy Urine VISTA NEGATIVE (< 500 ng/mL); Methadone Urine VISTA NEGATIVE (< 300 ng/mL); PCP Urine VISTA NEGATIVE (< 25 ng/mL); THC Urine VISTA POSITIVE (< 50 ng/mL); Vista UDS pH Range 5
[2020-03-20 23:42] LABS: ALB/GLOB Ratio 1.5 RATIO (0.9-2.4); AST(SGOT) 18 U/L (15-37); Alanine Aminotransfer ALT/SGPT 18 U/L (13-56); Albumin, Serum 4.6 g/dL (3.2-5.0); Alkaline Phosphatase 59 U/L (45-117); Anion Gap 4 (5-15); BUN 12 mg/dL (7-18); BUN/Creat Ratio 12.7 RATIO (10-20); Calcium,Total 9.2 mg/dL (8.5-10.1); Chloride 109 mmol/L (98-107); Creatinine, Serum 0.95 mg/dL (0.55-1.02); EST Glomerular Filtration Rate 80 mL/min (>60); Est Glom Filt Rate - Afr Amer 96 mL/min (>60); Estimated Creatinine Clearance 74.71 ml/min; Glucose 103 mg/dL (74-106); Potassium 3.2 mmol/L (3.5-5.1); Protein, Total 7.6 g/dL (6.4-8.2); Sodium Level 141 mmol/L (136-145)
[2020-03-21] VITALS (9 sets, daily range): BP systolic 99–113; BP diastolic 67–95; PULSE 67–94; RESP 14–22; O2SAT 98–99
[2020-03-21 00:03] LABS: Acetaminophen (Tylenol) Level < 2.0 ug/mL (10.0-30.0); Salicylate 1.7 mg/dL (2.8-20.0)
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
[2020-03-21 04:44] LABS: CPK Total, Creatine Kinase 115 U/L (26-192)
[2020-03-21 05:52] LABS: Probe Check PASS; Specimen Processing Control PASS
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
--- NOTE | 2020-03-21 08:04 | ED.RN ---
PER AMBROCIO WITH CRISIS; [facility] RECEIVED THE COVID BUT THE EKG WAS TO DARK; REFAXED AT THIS TIME
== END 2020-03-21 11:32 ==
PROVIDERS: Emergency Provider Emergency Medicine
DX: T43.022A Poisoning by tetracyclic antidepressants, intentional self-harm, initial encounter (principal); Y92.9 Unspecified place or not applicable; F19.10 Other psychoactive substance abuse, uncomplicated; Z91.5 Personal history of self-harm; F32.9 Major depressive disorder, single episode, unspecified; F41.9 Anxiety disorder, unspecified; F60.3 Borderline personality disorder; F17.210 Nicotine dependence, cigarettes, uncomplicated
CPT/HCPCS: 80053; 80307; 80320; 80329; 82550; 84703; 85025; 87635; 93005; 94799; 99285; A4216; G0480; U0003

== ENCOUNTER 2020-05-24 10:05 | Emergency (ER) | payer MEDICAID, SELFPAY ==
[2020-05-24 10:06] VITALS: BP 116/72; PULSE 107; RESP 20; TEMP 36.7; O2SAT 100; BMI 23.3
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
[2020-05-24] MEDS: Acetaminophen 500 MG Tablet 1000 MG PO (10:54)
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
== END 2020-05-24 11:36 | disposition home or self-care (01) ==
LOC: ED 11:22
PROVIDERS: Emergency Provider Emergency Medicine
DX: S06.0X9A Concussion with loss of consciousness of unspecified duration, initial encounter (principal); M54.9 Dorsalgia, unspecified; R07.81 Pleurodynia; Y04.0XXA Assault by unarmed brawl or fight, initial encounter; Y93.9 Activity, unspecified; Y92.9 Unspecified place or not applicable; F32.9 Major depressive disorder, single episode, unspecified; J45.909 Unspecified asthma, uncomplicated; Z79.899 Other long term (current) drug therapy; F17.200 Nicotine dependence, unspecified, uncomplicated
CPT/HCPCS: 70450; 71101; 72072; 72100; 99283

== ENCOUNTER 2020-09-08 18:35 | Emergency (ER) | payer MEDICAID, SELFPAY ==
[2020-09-08 18:37] VITALS: BP 132/69; PULSE 137; RESP 20; TEMP 36.8; O2SAT 98; BMI 20.9
[2020-09-08 18:41] VITALS: BP 132/69; PULSE 137; RESP 20; TEMP 36.8; O2SAT 98
[2020-09-08 19:32] LABS: Red Blood Cells-Urine 0 SEEN /hpf (0-5)
[2020-09-08 19:33] LABS: Color, Urine Yellow (Yellow); Glucose, Dipstick Normal (Normal); Ketone-Dipstick 5 mg/dl (Negative); Leukocyte Esterase-Dipstick 100 /ul (Negative); Nitrite-Dipstick Negative (Negative); Occult Blood-Urine 10 /ul (Negative); Protein-Dipstick 30 mg/dl (Negative); Urine Clarity Sl. Cloudy (Clear); Urine Urobilinogen 1 mg/dl (Normal)
[2020-09-08 19:36] LABS: Urine Bilirubin Dipstick 1 mg/dL (Negative)
[2020-09-08 19:39] LABS: Internal QC Validated? YES +Cl - CLEAR BKGD; Pregnancy, Urine Negative Negative
[2020-09-08 19:41] LABS: Mucous, Urine 2+ /hpf (<or=2+); White Blood Cells 5-10 SEEN /hpf (0-5)
[2020-09-08 19:42] LABS: Bacteria 1+ /hpf (None Seen); Calcium Oxalate Crystals Ur 2+ /hpf (<or=2+); Squamous Epithelial Cells - UA 0-5 SEEN /hpf (5-10)
[2020-09-08] MEDS: Lidocaine 4% 50 ML Bottle TOPICAL (19:46)
[2020-09-08] MEDS: Azithromycin 250 MG Tablet 1000 MG PO (19:47)
[2020-09-08] MEDS: Docusate Sodium 100 MG Capsule 200 MG PO (20:13)
[2020-09-08] MEDS: Ceftriaxone 500 MG Vial 250 MG IM (20:14)
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
[2020-09-08 21:14] VITALS: RESP 20
[2020-09-08 21:24] LABS: Chlamydia Trachomatis by PCR Negative (Negative); Neisserai gonorrhoeae by PCR Negative (Negative); Specimen Processing Control PASS
[2020-09-08 21:25] LABS: Probe Check PASS; Sample Adequacy Control PASS
== END 2020-09-08 21:14 | disposition home or self-care (01) ==
PROVIDERS: Emergency Provider Emergency Medicine
DX: K64.9 Unspecified hemorrhoids (principal); N39.0 Urinary tract infection, site not specified; N72 Inflammatory disease of cervix uteri; F15.10 Other stimulant abuse, uncomplicated; Z59.0 Homelessness
CPT/HCPCS: 81001; 81025; 87086; 87088; 87210; 87491; 87591; 96372; 99283

== ENCOUNTER 2020-10-03 16:22 | Emergency (ER) | payer MEDICAID, SELFPAY ==
[2020-10-03 16:25] VITALS: BP 117/88; PULSE 130; RESP 24; TEMP 35.9; O2SAT 98; BMI 22.1
--- NOTE | 2020-10-03 16:27 | ED.VIS.GEN ---
History of Present Illness Chief Complaint: Cellulitis Informant: Patient Onset: Today, Hours Context: Sudden Onset Timing: Continuous Quality: Full red area medial right antecubital fossa Location: Medial right antecubital fossa Current Severity: Moderate Maximum Severity: Moderate Worsened by: Possible injection site Relieved by: Nothing Associated Symptoms: Pain Narrative: Patient is 20-year-old woman who presents because of right arm pain and redness that she noted this morning. There are several bruised areas. These are thought to be injection sites. She denies fever or chills. She has no history medic fever, heart murmur, SBE, IV drug use or being immune suppressed. She is presently on no medication. She has no antibiotic allergies. Patient is upset. She has no other complaints. History is limited because of emotional distress Prior similar symptoms: No Recent Illness/Hospitalization: No - Past Medical History (1) Acute cervicitis Status: Acute (2) Anxiety with depression Status: Chronic Past Medical History - Allergies and Home Meds Allergies/Adverse Reactions: Allergies tree nut Allergy (Verified 10/03/20 16:24) Anaphylaxis Primary Care Physician: Care Physician,No Primary [Primary Care Provider] - Prior records reviewed: Yes Surgical History: tonsillectomy Lives: Alone Smoking Status: Unknown if ever smoked Alcohol: None Drugs: None Review of Systems General: Denies: Chills, Fever, Malaise, Subjective Eyes: Denies: Visual changes - bilaterally, Blurred Vision - bilaterally ENT: Denies: Bilateral ear pain, Rhinorrhea, Sore throat Cardiovascular: Denies: Chest pain, Palpitations Respiratory: Denies: Dyspnea, Cough, Dyspnea on exertion Gastrointestinal: Denies: Abdominal pain, Nausea, Vomiting, Diarrhea Musculoskeletal: Reports: Myalgias, Back pain, Extremity Pain. Denies: Arthralgias, Swelling Skin: Reports: Rash, Wounds Neurological: Denies: Headache, Weakness Psych: Reports: Depression, Anxiety Hematologic: Denies: Easy bruising Physical Exam Vital Signs/Narrative: Vital Signs Temp Pulse Resp BP Pulse Ox 10/03/20 16:25 96.6 F L 130 H 24 H 117/88 H 98 Inital Vital Signs reviewed: Yes General: Well nourished, Well developed, Acute Distress Head: Normocephalic, Atraumatic Eyes: Perrl, EOMI. Negative for: Pale conjunctiva, Scleral icterus ENT: Moist mucous membranes, No rhinorrhea Neck: Supple, Nontender, No lymphadenopathy, No JVD Cardiovascular: Regular rhythm, No murmurs, Normal S1, Normal S2, Tachycardia Respiratory: No distress, CTA bilaterally, Chest tenderness - Numbness anterior to posterior axillary line ribs 6, 7, 8 and 9. There is no crepitus or subcutaneous air. There is no bruising noted. Abdomen: Soft, Nontender, Nondistended, Normal bowel sounds Rectal: Deferred Back: Normal Inspection. Negative for: Nontender, CVA tenderness, Spinal tenderness Extremities: No edema, - - And has bruising volar surface right forearm and antecubital fossa. In the center of the bruised areas there are pinpoint holes suspect injection sites.. Negative for: Nontender Skin: Normal color, Rash - Colitis medial right antecubital fossa without lymphangitis or axillary lymphadenopathy. Neurological: Alert, Oriented x3, Cranial nerves II-XII grossly intact, Normal Strength, Normal Sensation Psychological: Tearful, - - Patient distraught emotionally upset. Diagnostic/Tx/Re-eval - Medical Decision Making She has cellulitis. Will treat with doxycycline for strep and staph coverage. Patient reports no allergy. She was prescribed 1 Walton tablet in 1 Ativan tablet for her pain and anxiety. Since her temperature is normal blood work was not obtained. Suspect her tachycardia is due to the circumstances. ED Disposition - Plan for ED Patient: Disposition: Home or Assisted Living Diagnosis: Cellulitis of forearm, right, Anxiety as acute reaction to exceptional stress Instructions: ED Cellulitis Prescriptions: Doxycycline 100 mg PO BID #14 cap Transmission Status: Pending to [facility] Referrals: Care Physician,No Primary [Primary Care Provider] - 2 Days
[2020-10-03] MEDS: HYDROcodone Bitartrate/Apap 5/325 Tablet PO (16:34)
[2020-10-03] MEDS: Doxycycline 100 MG CAPSULE PO (16:35)
[2020-10-03] MEDS: LORazepam 0.5 MG Tablet PO (16:35)
[2020-10-03] MEDS: Ondansetron ODT 4 MG Tablet PO (17:14)
== END 2020-10-03 20:53 | disposition home or self-care (01) ==
LOC: ED 16:52
PROVIDERS: Emergency Provider Emergency Medicine
DX: L03.113 Cellulitis of right upper limb (principal); F41.1 Generalized anxiety disorder; F43.0 Acute stress reaction
CPT/HCPCS: 99283

== ENCOUNTER 2020-10-03 16:34 | Outpatient (REF) | payer SELFPAY ==
[2020-10-03 16:25] VITALS: BMI 22.1
[2020-10-03 17:26] LABS: Internal QC Validated? YES +Cl - CLEAR BKGD; Pregnancy, Serum, hCG Quali. NEGATIVE Negative
== END 2020-10-03 21:00 | disposition home or self-care (01) ==
LOC: EDREF 16:34
DX: Z04.41 Encounter for examination and observation following alleged adult rape (principal)
CPT/HCPCS: 84703

== ENCOUNTER 2020-10-29 01:31 | Emergency (ER) | payer MEDICAID, SELFPAY ==
[2020-10-29 01:32] VITALS: BP 122/85; PULSE 129; RESP 18; TEMP 36.8; O2SAT 99; BMI 21.9
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
[2020-10-29] MEDS: Lidocaine 1% (20 ml mdv) 20 ML Vial INFILT (02:03)
== END 2020-10-29 02:13 | disposition home or self-care (01) ==
LOC: ED 02:12
PROVIDERS: Emergency Provider Emergency Medicine
DX: S51.812A Laceration without foreign body of left forearm, initial encounter (principal); X58.XXXA Exposure to other specified factors, initial encounter; Y93.9 Activity, unspecified; Y92.9 Unspecified place or not applicable; F15.10 Other stimulant abuse, uncomplicated; F17.200 Nicotine dependence, unspecified, uncomplicated
CPT/HCPCS: 12002; 99285

== ENCOUNTER 2020-11-08 11:58 | Emergency (ER) | payer MEDICAID, SELFPAY ==
[2020-11-08 11:58] VITALS: BP 120/71; PULSE 109; RESP 18; TEMP 36.2; O2SAT 100; BMI 21.2
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
[2020-11-08 12:53] LABS: Internal QC Validated? YES +Cl - CLEAR BKGD; Pregnancy, Serum, hCG Quali. NEGATIVE Negative
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
--- NOTE | 2020-11-08 19:03 | CM.ED ---
Social Work Emergency Department Called at 1353 by set up and charger who reports patient interested in talking to social work supervisor about possible [place] [facility] options. This fiction and nonfiction prose writer indicated that would be to the ED shortly. En route to the ED and received message from ED at [phone] that patient decided did not want to wait, and was leaving. Patient left the department, per her choice, without waiting on resources for [place] [facility]. -HUMBLE Monroy, JEWELRY COATER
== END 2020-11-08 14:20 | disposition home or self-care (01) ==
LOC: ED 12:59
PROVIDERS: Emergency Provider Emergency Medicine
DX: Z48.02 Encounter for removal of sutures (principal); Z72.0 Tobacco use
CPT/HCPCS: 70450; 73130; 74177; 84703; 99284; Q9967; A4216

== ENCOUNTER 2020-11-20 17:46 | Emergency (ER) | payer MEDICAID, SELFPAY ==
[2020-11-20 17:47] VITALS: BP 80/50; PULSE 130; RESP 16; TEMP 37.2; O2SAT 97; BMI 23.0
--- NOTE | 2020-11-20 18:26 | CT_ITS ---
INDICATION: RLQ pain -- IV PO Contrast EXAMINATION: CT Abdomen And Pelvis W/ Contrast Injection TECHNIQUE: Helically acquired images were obtained of the abdomen and pelvis after IV contrast. A radiation dose optimization technique was used for this scan. IV Contrast dosage and agent: 100 cc ISOVUE-300 Oral contrast: Yes COMPARISON: 11/08/2020. FINDINGS: Visualized lung bases: Bibasilar atelectasis. Liver: Unremarkable Gallbladder: Unremarkable Spleen: Unremarkable Pancreas: Unremarkable Adrenal Glands: Unremarkable Kidneys: Unremarkable GI Tract: The appendix is normal. Vasculature: Unremarkable Lymphadenopathy: None Peritoneum: No ascites. Bladder: Unremarkable Reproductive organs: Unremarkable Bones/Soft tissues: No suspicious osseous or soft tissue lesions CT/Abdomen/Pelvis WITH Contrast IMPRESSION: No acute abnormalities in the abdomen or pelvis. Electronically Signed: Anival Miller MD at 20:12 EDT Tel , Service support ,
[2020-11-20 18:40] LABS: Absolute Lymphocyte Count 2.64 X10^3/uL (0.83-4.51); Absolute Neutrophil Count 2.8 X10^3/uL (2.0-7.7); Basophil# 0.06 X10^3/uL; Eosinophil# 0.16 X10^3/uL; Eosinophils% 2.6 % (0-5); Hematocrit 42.5 % (37-47); Hemoglobin 14.2 g/dL (12.0-15.0); Lymphocyte # 2.64 X10^3/ul (4.0); Mean Corp Hgb Conc 33.4 g/dL (32-36); Mean Corpuscular Hgb 30.4 pg (27.0-32.0); Mean Platelet Vol. 9.9 fl (6.2-12.0); Monocyte# 0.48 X10^3/uL; Monocyte% 7.8 % (0-10); NRBC Flagged by Analyzer 0 % (0-5); Neutrophil # 2.78 X10^3/uL (2.7-7.7); Neutrophil % 45.3 % (47-70); Platelet Count 270 K/mm3 (150-450); RBC Distribution Width CV 12.8 % (11.6-14.6); RBC Distribution Width SD 42.5 fl (35.1-43.9); Red Blood Count 4.67 M/mm3 (4.2-5.4); White Blood Count 6.1 K/mm3 (4.4-11.0)
[2020-11-20] MEDS: Ondansetron 4 MG/2 ML Vial IV (18:41)
[2020-11-20] MEDS: fentaNYL 100 MCG/2 ML Ampul 50 MCG IV (18:41)
[2020-11-20] MEDS: 0.9% Normal Saline 1,000 ML 1000 ML IV ×2 (18:41→18:42)
[2020-11-20 18:49] LABS: Anion Gap 2 (5-15); BUN 9 mg/dL (7-18); BUN/Creat Ratio 10.1 RATIO (10-20); Calcium,Total 9.3 mg/dL (8.5-10.1); Chloride 103 mmol/L (98-107); Creatinine, Serum 0.89 mg/dL (0.55-1.02); EST Glomerular Filtration Rate 85 mL/min (>60); Est Glom Filt Rate - Afr Amer 103 mL/min (>60); Estimated Creatinine Clearance 82.71 ml/min; Glucose 79 mg/dL (74-106); Potassium 3.7 mmol/L (3.5-5.1); Sodium Level 137 mmol/L (136-145)
--- NOTE | 2020-11-20 18:55 | ED.DCSUM_ITS ---
- ER Visit Summary Date of Service: 11/20/20 Chief Complaint: Abdominal pain History of Present Illness: The patient is a 20 F presenting with right lower quadrant abdominal pain. She states this started a few days ago and has been progressively worsening. She denies fever. Denies nausea or vomiting. Denies diarrhea. Denies urinary complaints. Denies possibility of . Denies other complaints. Physical Examination: Vitals are stable. Patient is afebrile. Alert no acute distress. HEENT exam is unremarkable. Neck is supple. Lungs are clear and equal bilaterally. Heart is regular tachycardic Abdomen is soft right lower quadrant tenderness with no guarding or rebound Extremities are unremarkable. Skin is warm and dry. No focal neurologic deficit. Remainder of exam is unremarkable. Emergency Department Course and Treatment: Patient was given IV fluids, fentanyl, Zofran. CBC, chemistries unremarkable. Urinalysis shows 0 white blood cells, 50-100 red blood cells, patient is currently on her menstrual cycle. hCG negative. She was given Toradol IV with improvement. CT abdomen pelvis shows no acute abnormalities in the abdomen or pelvis. On reevaluation, she is resting comfortably. Advised to follow-up with her primary care physician. Advised return to ED for worsening complaints. Disposition: Discharge home Impression: Abdominal pain This note was generated with [employer] dictation software. It may contain incorrect words, spelling, and punctuation that were not noted in review of the chart prior to signing ED Disposition - Plan for ED Patient: Instructions: ED Abdominal Pain Unkn Cause Fem Referrals: Care Physician,No Primary [Primary Care Provider] -
[2020-11-20 19:05] LABS: Bacteria 0 SEEN /hpf (None Seen); Color, Urine Yellow (Yellow); Glucose, Dipstick Normal (Normal); Ketone-Dipstick Negative (Negative); Leukocyte Esterase-Dipstick 25 /ul (Negative); Mucous, Urine 0 SEEN /hpf (<or=2+); Nitrite-Dipstick Negative (Negative); Occult Blood-Urine 250 /ul (Negative); Protein-Dipstick Negative (Negative); Urine Bilirubin Dipstick Negative (Negative); Urine Clarity Sl. Cloudy (Clear); Urine Urobilinogen Normal (Normal); White Blood Cells 0 SEEN /hpf (0-5)
[2020-11-20 19:07] LABS: Internal QC Validated? YES +Cl - CLEAR BKGD; Pregnancy, Urine Negative Negative
[2020-11-20 19:11] LABS: Red Blood Cells-Urine 50-100 SEEN /hpf (0-5); Squamous Epithelial Cells - UA 0-5 SEEN /hpf (5-10)
[2020-11-20 19:37] VITALS: BP 110/97; PULSE 73; RESP 16
--- NOTE | 2020-11-20 19:47 | CM.ED ---
Social Work Consult: No PCP Referral source: Self referral Met with patient in room. Introduced self and manager social services role. Patient agreeable to speak with this manager social services. Patient significant other present. Patient provided verbal permission for this manager social services to speak openly with significant other present. Patient confirms to not have a PCP and states I don't like doctors. This manager social services prompting conversation with patient about how a PCP can assist in managing patient health in the community. Patient voices understanding and is agreeable to this manager social services providing patient with list of PCP's that are in-network with patient insurance. Patient denies any other concerns in the community. Patient reports to currently live with significant other. Leonila CASTELLANOS, HUMBLE
[2020-11-20] MEDS: Ketorolac 30 MG/ML Syringe IV (20:15)
--- NOTE | 2020-11-20 20:53 | ED.DEP ---
ED Disposition - Plan for ED Patient: Instructions: ED Abdominal Pain Unkn Cause Fem Referrals: Care Physician,No Primary [Primary Care Provider] -
[2020-11-20 21:08] VITALS: BP 128/98; RESP 16
== END 2020-11-20 21:09 | disposition home or self-care (01) ==
LOC: ED 18:50
PROVIDERS: Emergency Provider Emergency Medicine
DX: R10.31 Right lower quadrant pain (principal); F41.9 Anxiety disorder, unspecified; Z79.899 Other long term (current) drug therapy; Z72.0 Tobacco use
CPT/HCPCS: 74177; 80048; 81001; 81025; 85025; 96361; 96374; 96375; 99284; J7030; Q9967; A4216; J2405

== ENCOUNTER 2020-12-26 14:59 | Emergency (ER) | payer MEDICAID, SELFPAY ==
[2020-12-26 14:59] VITALS: BP 111/56; PULSE 112; RESP 19; TEMP 35.7; O2SAT 96; BMI 22.0
== END 2020-12-26 16:02 | disposition left against medical advice (07) ==
LOC: ED 16:29
DX: Z53.21 Procedure and treatment not carried out due to patient leaving prior to being seen by health care provider (principal)

== ENCOUNTER 2021-01-01 00:34 | Emergency (ER) | payer MEDICAID, SELFPAY ==
[2021-01-01 00:36] VITALS: BP 123/77; PULSE 98; RESP 14; TEMP 37; O2SAT 99; BMI 23.7
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
--- NOTE | 2021-01-01 00:42 | ED.RN ---
pt suddenly able to tilt head to her lt side after dr was done examining her.
[2021-01-01] MEDS: Naproxen 250 MG Tablet 500 MG PO (00:54)
--- NOTE | 2021-01-01 00:58 | ED.RN ---
pt complaining d/t not receiving a muscle relaxer. pt laying flat in the bed, sat straight up then stood up without c/o of pain.
== END 2021-01-01 01:04 | disposition home or self-care (01) ==
LOC: ED 01:01
PROVIDERS: Emergency Provider Emergency Medicine
DX: M43.6 Torticollis (principal); F17.200 Nicotine dependence, unspecified, uncomplicated
CPT/HCPCS: 99284

== ENCOUNTER 2021-01-05 18:30 | Emergency (ER) | payer MEDICAID, SELFPAY ==
[2021-01-05 18:31] VITALS: BP 120/77; PULSE 125; RESP 20; TEMP 36.8; O2SAT 98; BMI 21.9
--- NOTE | 2021-01-05 18:45 | ED.VIS.FEGU ---
HPI HPI - Female History of Present Illness Chief Complaint: Abd Pain Detail of Chief Complaint: and vaginal bleeding Informant: patient and friend Pain Pain: Positive for Pelvic Pain Onset: Yesterday Context: Gradual Onset Timing: Intermittent Quality: Positive for Cramping Current Severity: Mild Maximum Severity: Moderate Bleeding Issue: Positive for Vaginal bleeding and Passing clots Onset: Yesterday Timing: Intermittent Current Severity: Mild Severity: Mild Associated Symptoms Associated Symptoms: Negative for Dysuria, Frequency, Urgency and Hematuria Test: Positive Sexually: Positive for Active Control: No control P: 0 Ab: 1 Narrative Narrative: 20-year-old female G2, P0 Ab1 female with that being discharged. Believes she is 6 to 7 weeks yesterday started having bleeding with clots and pelvic cramping. She denies any dysuria nor any fever. She has had no care. Prior similar symptoms: Yes Recent Illness/Hospitalization: No PFSH PFS Medical History (Updated 01/05/21 @ 20:[address] Con Denis MD) Tonsillectomy planned Home Medications fluoxetine 20 mg PO DAILY 11/20/20 [History Last Taken Unknown] hydroxyzine pamoate 50 mg PO TID PRN 11/20/20 [History Last Taken Unknown] oxcarbazepine 300 mg PO DAILY 11/20/20 [History Last Taken Unknown] paliperidone 6 mg PO DAILY 11/20/20 [History Last Taken Unknown] trazodone 150 mg PO QHS 11/20/20 [History Last Taken Unknown] naproxen 500 mg PO BID #10 tab 01/01/21 [Rx Last Taken Unknown] Allergy/AdvReac Type Severity Reaction Status Date / Time tree nut Allergy Anaphylaxis Verified 01/01/21 00:35 Social History household members: significant other Smoking Status: Current every day smoker alcohol intake: current alcohol intake frequency: a few times a week substance use type: marijuana ROS ROS ED ROS Narrative Patient denies any recent illness. Review of Systems ROS Unobtainable: Denies due to encephalopathy Constitutional Constitutional ED: Denies fever(s) Eyes Eyes: Denies change in vision ENT ENT ED: Denies ear pain or sore throat Cardiovascular Cardiovascular: Denies chest pain Respiratory/Chest Respiratory/Chest: Denies cough or dyspnea Gastrointestinal Gastrointestinal: Reports abdominal pain; Denies diarrhea, nausea or vomiting Genitourinary Genitourinary ED: Denies dysuria or hematuria Musculoskeletal Musculoskeletal: Denies myalgias Integumentary Denies rash Neurologic Neurologic: Denies headache(s) Psychiatric Psychiatric: Denies depression Endocrine Endocrinology: Denies polyuria Hematologic/Lymphatic Hematologic/Lymphatic: Denies easy bruising Allergic/Immunologic Allergic/Immunologic ED: Denies urticaria EXAM Physical Exam Narrative Exam Narrative: Female no acute distress. Complaining of pelvic pain. Vital signs are stable afebrile. Lungs are clear. Heart tachycardic rate about 120 no murmur. Abdomen is soft. Mild suprapubic tenderness. No peritoneal signs. Nondistended. Moving all 4 extremities. No edema. Const Vital Signs: 01/05/21 18:31 Temperature 98.3 F Temperature Source Temporal Pulse Rate 125 H Respiratory Rate 20 H Blood Pressure 120/77 Blood Pressure Mean 91 Pulse Ox 98 Oxygen Delivery Method Room Air Positive well nourished and well developed General Appearance ED: well developed HEENT Reports moist mucous membranes Negative for trauma or tenderness Eyes PERRL and EOMs intact bilaterally Neck no lymphadenopathy, supple and no JVD Chest Wall inspection of chest normal Resp normal respiratory effort and clear to auscultation bilaterally Cardio regular rhythm and no murmurs Rate: tachycardic GI normal to inspection, nondistended, normoactive bowel sounds and soft to palpation GI Narrative: Mild suprapubic tenderness only. No peritoneal signs. Palpation: tender no CVA tenderness Back/Spine no CVA tenderness Extremity normal to inspection Neuro oriented x3 Sensorium / Orientation: alert, oriented to person, oriented to place and oriented to time Psych mental status grossly normal Skin no rashes or lesions noted MDM MDM MDM Narrative Medical decision making narrative: Patient with suspected first trimester with vaginal bleeding. Concern for miscarriage. Rule out ectopic but at this time I think it is most likely a miscarriage. Labs and ultrasound pending. She will be treated with IV fluids, IV morphine and Zofran for pain and nausea. Repeat exam patient is doing well. We discussed all of her test results. She will be treated with IV Toradol and discharged to home. Lab Data Attestation: I reviewed the patient's lab results. Lab results narrative: CBC normal with a white count 8 hemoglobin 14. Quant is negative at less than 1 so she is not . Urine shows blood but no signs of infection. Due to the negative quant the ultrasound was canceled. Labs: Laboratory Results - last 24 hr 01/05/21 01/05/21 01/05/21 19:00 19:00 19:00 WBC 8.4 RBC 4.67 Hgb 14.0 Hct 40.5 MCV 86.7 MCH 30.0 MCHC 34.6 RDW Std Deviation 40.1 RDW Coeff of Shanda 12.7 Plt Count 259 MPV 9.7 Immature Gran % (Auto) 0.200 Neut % (Auto) 40.0 L Lymph % (Auto) 51.1 H Person % (Auto) 6.2 Eos % (Auto) 1.8 Baso % (Auto) 0.7 Absolute Neuts (auto) 3.4 Absolute Lymphs (auto) 4.30 Nucleated RBC % 0 HCG, Quant < 1 Urine Color Urine Clarity Urine pH Ur Specific [place] Urine Protein Urine Glucose (UA) Urine Ketones Urine Occult Blood Urine Nitrite Urine Bilirubin Urine Urobilinogen Ur Leukocyte Esterase Urine RBC Urine WBC Ur Squamous Epith Cells Urine Bacteria Urine Mucus Blood Type A POSITIVE 01/05/21 19:22 WBC RBC Hgb Hct MCV MCH MCHC RDW Std Deviation RDW Coeff of Shanda Plt Count MPV Immature Gran % (Auto) Neut % (Auto) Lymph % (Auto) Person % (Auto) Eos % (Auto) Baso % (Auto) Absolute Neuts (auto) Absolute Lymphs (auto) Nucleated RBC % HCG, Quant Urine Color Yellow Urine Clarity Sl. Cloudy Urine pH 6.0 Ur Specific [place] 1.015 Urine Protein Negative Urine Glucose (UA) Normal Urine Ketones Negative Urine Occult Blood 250 H Urine Nitrite Negative Urine Bilirubin Negative Urine Urobilinogen Normal Ur Leukocyte Esterase 25 H Urine RBC > 100 SEEN Urine WBC 0-5 SEEN Ur Squamous Epith Cells 0-5 SEEN Urine Bacteria 0 SEEN Urine Mucus 0 SEEN Blood Type Discharge Plan Triage Chief Complaint: Abd Pain ED Provider: Con Denis Dx/Rx/DC Orders Clinical Impression: Vaginal bleeding Instructions: ED MENSTRUAL CRAMPING Prescriptions: No Action hydroxyzine pamoate 50 MG capsule 50 mg PO TID PRN (Reason: Anxiety) RF: 0 trazodone 150 MG tablet 150 mg PO QHS RF: 0 fluoxetine 20 MG capsule 20 mg PO DAILY RF: 0 paliperidone 6 MG tablet extended release 24hr 6 mg PO DAILY RF: 0 oxcarbazepine 300 MG tablet 300 mg PO DAILY RF: 0 naproxen 500 MG tablet 500 mg PO BID Qty: 10 RF: 0 Primary Care Provider: Care Physician,No Primary Referrals: Lauren Avila MD [STAFF PHYSICIAN] - 1 Week if not improving Care Physician,No Primary [Primary Care Provider] - Activity Restrictions/Additional Instructions: Plenty of fluids and rest. Tylenol Motrin for pain. Follow-up with [facility] if not improving. You were not . Disposition Disposition: Home, self care
[2021-01-05] MEDS: 0.9% Normal Saline 1,000 ML 1000 ML IV (19:01)
[2021-01-05] MEDS: Morphine 4 MG/ML Syringe IV (19:01)
[2021-01-05] MEDS: Ondansetron 4 MG/2 ML Vial IV (19:01)
[2021-01-05 19:09] LABS: Absolute Neutrophil Count 3.4 X10^3/uL (2.0-7.7); Basophil# 0.06 X10^3/uL; Basophil% 0.7 % (0-1); Eosinophil# 0.15 X10^3/uL; Eosinophils% 1.8 % (0-5); Hematocrit 40.5 % (37-47); Lymphocyte % 51.1 % (19-41); Mean Corp Hgb Conc 34.6 g/dL (32-36); Mean Corpuscular Volume 86.7 fL (81-99); Mean Platelet Vol. 9.7 fl (6.2-12.0); Monocyte# 0.52 X10^3/uL; Monocyte% 6.2 % (0-10); NRBC Flagged by Analyzer 0 % (0-5); Neutrophil # 3.37 X10^3/uL (2.7-7.7); Platelet Count 259 K/mm3 (150-450); RBC Distribution Width CV 12.7 % (11.6-14.6); RBC Distribution Width SD 40.1 fl (35.1-43.9); Red Blood Count 4.67 M/mm3 (4.2-5.4); White Blood Count 8.4 K/mm3 (4.4-11.0)
[2021-01-05 19:27] LABS: hCG Titer Quant., Serum < 1 mIU/mL (1-3)
[2021-01-05 19:27] LABS: Bacteria 0 SEEN /hpf (None Seen); Mucous, Urine 0 SEEN /hpf (<or=2+)
[2021-01-05 19:28] LABS: Color, Urine Yellow (Yellow); Glucose, Dipstick Normal (Normal); Ketone-Dipstick Negative (Negative); Leukocyte Esterase-Dipstick 25 /ul (Negative); Nitrite-Dipstick Negative (Negative); Occult Blood-Urine 250 /ul (Negative); Protein-Dipstick Negative (Negative); Specific Gravity, Urine 1.015 (1.002-1.030); Urine Bilirubin Dipstick Negative (Negative); Urine Clarity Sl. Cloudy (Clear); Urine Urobilinogen Normal (Normal)
[2021-01-05 19:42] LABS: Red Blood Cells-Urine > 100 SEEN /hpf (0-5); Squamous Epithelial Cells - UA 0-5 SEEN /hpf (5-10); White Blood Cells 0-5 SEEN /hpf (0-5)
[2021-01-05] MEDS: Ketorolac 30 MG/ML Syringe IV (20:52)
[2021-01-05 20:58] VITALS: BP 98/71; RESP 20
== END 2021-01-05 20:59 | disposition home or self-care (01) ==
PROVIDERS: Emergency Provider Emergency Medicine
DX: N93.9 Abnormal uterine and vaginal bleeding, unspecified (principal); F17.200 Nicotine dependence, unspecified, uncomplicated
CPT/HCPCS: 81001; 84702; 85025; 86900; 86901; 96361; 96374; 96375; 99284; J7030; J2405

== ENCOUNTER 2021-01-11 11:26 | Emergency (ER) | payer MEDICAID, SELFPAY ==
[2021-01-11 11:27] VITALS: BP 113/68; PULSE 108; RESP 16; TEMP 36.2; BMI 22.8
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
[2021-01-11] MEDS: Clindamycin HCl 150 MG Capsule 300 MG PO (11:50)
[2021-01-11 11:56] VITALS: BP 113/68; PULSE 96; RESP 18
== END 2021-01-11 11:57 | disposition home or self-care (01) ==
LOC: ED 11:44
PROVIDERS: Emergency Provider Emergency Medicine
DX: T24.011A Burn of unspecified degree of right thigh, initial encounter (principal); L03.115 Cellulitis of right lower limb; X08.8XXA Exposure to other specified smoke, fire and flames, initial encounter; Y93.9 Activity, unspecified; Y92.9 Unspecified place or not applicable; F17.200 Nicotine dependence, unspecified, uncomplicated
CPT/HCPCS: 99283

== ENCOUNTER 2021-05-10 14:27 | Emergency (ER) | payer MEDICAID, SELFPAY ==
[2021-05-10 14:28] VITALS: BP 117/87; PULSE 115; RESP 18; TEMP 36.2; O2SAT 99; BMI 21.0
[2021-05-10 16:14] LABS: Absolute Lymphocyte Count 2.48 X10^3/uL (0.83-4.51); Absolute Neutrophil Count 4.2 X10^3/uL (2.0-7.7); Basophil# 0.07 X10^3/uL; Basophil% 0.9 % (0-1); Eosinophil# 0.17 X10^3/uL; Eosinophils% 2.3 % (0-5); Hematocrit 44.2 % (37-47); Hemoglobin 14.3 g/dL (12.0-15.0); Lymphocyte # 2.48 X10^3/ul (0.83-4.51); Lymphocyte % 33.4 % (19-41); Mean Corp Hgb Conc 32.4 g/dL (32-36); Mean Corpuscular Hgb 29.6 pg (27.0-32.0); Mean Corpuscular Volume 91.5 fL (81-99); Mean Platelet Vol. 9.5 fl (6.2-12.0); Monocyte# 0.45 X10^3/uL; Monocyte% 6.1 % (0-10); NRBC Flagged by Analyzer 0 % (0-5); Neutrophil # 4.23 X10^3/uL (2.7-7.7); Platelet Count 293 K/mm3 (150-450); RBC Distribution Width CV 12.9 % (11.6-14.6); RBC Distribution Width SD 43.2 fl (35.1-43.9); Red Blood Count 4.83 M/mm3 (4.2-5.4); White Blood Count 7.4 K/mm3 (4.4-11.0)
[2021-05-10 16:31] LABS: ALB/GLOB Ratio 0.9 RATIO (0.9-2.4); AST(SGOT) 32 U/L (15-37); Alanine Aminotransfer ALT/SGPT 42 U/L (13-56); Albumin, Serum 3.7 g/dL (3.2-5.0); Alkaline Phosphatase 68 U/L (45-117); Anion Gap 4 (5-15); BUN 12 mg/dL (7-18); BUN/Creat Ratio 17.5 RATIO (10-20); Calcium,Total 9.2 mg/dL (8.5-10.1); Chloride 107 mmol/L (98-107); Creatinine, Serum 0.69 mg/dL (0.55-1.02); EST Glomerular Filtration Rate 114 mL/min (>60); Est Glom Filt Rate - Afr Amer 138 mL/min (>60); Estimated Creatinine Clearance 102.01 ml/min; Glucose 95 mg/dL (74-106); Potassium 3.7 mmol/L (3.5-5.1); Protein, Total 7.7 g/dL (6.4-8.2); Sodium Level 140 mmol/L (136-145)
--- NOTE | 2021-05-10 16:37 | ED.RN ---
REPORTS SHE IS TIRED OF WAITING AND WILL BE BACK TOMORROW
[2021-05-10 16:40] LABS: Alcohol, Blood (Medical)-Serum < 3.0 mg/dL
== END 2021-05-10 16:37 | disposition left against medical advice (07) ==
LOC: ED 16:40
DX: Z53.21 Procedure and treatment not carried out due to patient leaving prior to being seen by health care provider (principal)
CPT/HCPCS: 80053; 82077; 85025

== ENCOUNTER 2021-05-17 20:44 | Inpatient (IN) | payer MEDICAID, SELFPAY ==
[2021-05-17 20:45] VITALS: PULSE 115; PULSE 116; RESP 18; TEMP 36.3; O2SAT 100; BMI 19.9
--- NOTE | 2021-05-17 22:19 | EX.ED.SAOD ---
HPI History of Present Illness Chief Complaint: Substance Abuse Detail of Chief Complaint: Requesting inpatient detox. Has never done detox before reportedly. Informant: patient Onset/Context/Timing Onset: Month(s) Context: Gradual Onset Timing: Intermittent Current Severity: Mild Maximum Severity: Mild Associated Symptoms Associated Symptoms: Positive for vomiting* and diarrhea* Narrative Narrative: 20-year-old female states she abuses fentanyl and methamphetamine via IV. She is used both in the last several hours. She is never done detox before and was hoping to get inpatient detox today. She is a history of asthma. States she has had some recent mild nausea and vomiting. Prior similar symptoms: Yes Recent Illness/Hospitalization: No PFSH PFSH Medical History Drug abuse Tonsillectomy planned Allergy/AdvReac Type Severity Reaction Status Date / Time tree nut Allergy Anaphylaxis Verified 05/10/21 14:28 Social History household members: significant other Smoking Status: Current every day smoker tobacco type: cigarettes alcohol intake: current alcohol intake frequency: a few times a week substance use type: marijuana ROS ROS ED ROS Narrative Nausea and vomiting. Review of Systems ROS Unobtainable: Denies due to encephalopathy Constitutional Constitutional ED: Denies chills or fever(s) Eyes Eyes: Denies change in vision ENT ENT ED: Denies ear pain or sore throat Cardiovascular Cardiovascular: Denies chest pain Respiratory/Chest Respiratory/Chest: Denies cough or dyspnea Gastrointestinal Gastrointestinal: Reports nausea and vomiting; Denies abdominal pain or diarrhea Genitourinary Genitourinary ED: Denies dysuria Musculoskeletal Musculoskeletal: Denies myalgias Integumentary Denies rash Neurologic Neurologic: Denies headache(s) Psychiatric Psychiatric: Denies depression Endocrine Endocrinology: Denies polyuria Hematologic/Lymphatic Hematologic/Lymphatic: Denies easy bruising Allergic/Immunologic Allergic/Immunologic ED: Denies urticaria EXAM Physical Exam Narrative Exam Narrative: 20-year-old female no acute distress. Vital signs are stable. Pulse ox 100% on room air. Afebrile. HEENT exam unremarkable. Neck nontender no lymphadenopathy. Lungs are clear to auscultation. Heart regular rhythm rate of 110 no murmur. Abdomen soft nontender. Moving all 4 extremities. Track isaacs in both antecubital areas but did not clinically look infected at this time. Neurologically awake and alert. Const Vital Signs: 05/17/21 20:45 Temperature 97.4 F L Temperature Source Temporal Pulse Rate 116 H Respiratory Rate 18 Pulse Ox 100 Oxygen Delivery Method Room Air Positive well nourished and well developed; Negative for obese, cachectic, contractures or unkempt General Appearance ED: well developed and NAD; Negative for unkempt, cachectic, contractures or pallor Nutritional Appearance: Negative for cachectic or obese HEENT Reports moist mucous membranes atraumatic; Negative for trauma Eyes PERRL and EOMs intact bilaterally Neck no lymphadenopathy, supple and no JVD Thyroid: Negative for tender Lymph Lymphatic: no lymphadenopathy noted Chest Wall inspection of chest normal and palpation of chest normal Resp normal respiratory effort and clear to auscultation bilaterally Auscultation: Negative for rales, rhonchi, wheezes or other Cardio regular rhythm, S1 normal heart sound, S2 normal heart sound and no murmurs GI soft to palpation, non-tender and non-distended Palpation: Negative for tender, guarding or rigid Back/Spine no CVA tenderness General Back: Negative for CVA tenderness Cervical Spine: Negative for cervical spine tenderness Thoracic Spine / Upper Back: Negative for thoracic spinal tenderness Extremity General Extremety ED: Negative for edema or tenderness General Extremity: Negative for edema Neuro oriented x3 Sensorium / Orientation: alert, oriented to person, oriented to place and oriented to time Motor Exam: strength 5/5 throughout Psych mental status grossly normal and thought process normal Appearance: Negative for unkempt Skin General Skin Exam: Negative for jaundice or pallor Lesions: no lesions Rashes: no rashes MDM MDM MDM Narrative Medical decision making narrative: 20-year-old female with history of fentanyl methamphetamine abuse. Patient requesting detox. Exam benign. Medically cleared. Discharge Plan Dx/Rx/DC Orders Clinical Impression: Mild fentanyl abuse, Desire for detoxification Disposition Disposition: Acute Care Hospital [facility]
--- NOTE | 2021-05-17 22:38 | HP.PCM.HOS_ITS ---
HPI - General General Date of Admission: 05/17/21 Date of Service: 05/17/21 Chief Complaint: Desire for detoxification HPI Narrative MELLISA TORRES, is a 20 F with a significant history of tobacco abuse; polysubstance abuse who presents for help with detoxification. Patient drug of choice is methamphetamine and fentanyl. Fentanyl: She is not sure of how much uses per day. She has been using for about 3 months. She reported last time she used was a couple of hours without elaborating. She shoots the fentanyl. Methamphetamine: She reports using methamphetamine for the last 4 years. She reports using a lot without further elaborating. Last time she used is on the same day of presentation. She shoots the methamphetamine. She reports being withdrawal. Withdrawal symptoms malaise; nausea; vomiting; headache; fatigue; weakness; neck pain; abdominal pain; and restless legs. [facility] Medical History (Updated 05/17/21 @ 23:[address] Jax Khanna MD) Drug abuse Allergy/AdvReac Type Severity Reaction Status Date / Time tree nut Allergy Anaphylaxis Verified 05/10/21 14:28 Family History Other Drug abuse Surgical History (Updated 05/17/21 @ 23:[address] Jax Khanna MD) History of tonsillectomy Social History household members: significant other Smoking Status: Current every day smoker tobacco type: cigarettes alcohol intake: current alcohol intake frequency: a few times a week substance use type: marijuana ROS ROS Narrative Pertinent positives and pertinent negatives as noted in HPI. All other systems were reviewed and are negative. Vital Signs Vital Signs Vital Signs: 05/17/21 20:45 Temperature 97.4 F L Temperature Source Temporal Pulse Rate 116 H Respiratory Rate 18 Pulse Ox 100 Oxygen Delivery Method Room Air Weight Weight: 49.4 kg Body Mass Index (BMI) 19.9 Physical Exam Narrative Physical exam: General: Patient in bed; restless with oropharyngeal movement and generalized body movements. Head: Normocephalic, atraumatic, no tenderness Eyes: PERRLA, EOMI ENT, no trauma, moist mucous membranes, no rhinorrhea Neck: Nontender, full range of motion, no spinal tenderness, deformities, step- off CVS: Regular rate and rhythm. S1-S2 present. No murmur, gallop or rub. Respiratory : clear to auscultation bilaterally, chest wall nontender, no wheezing Abdomen: Soft, nontender, nondistended, normal bowel sounds, no masses : Deferred Back: Nontender, no CVA tenderness, no midline spinal tenderness, deformities, step-offs Extremities: Nontender full range of motion, no trauma Skin: Normal color, no trauma, abrasions Neuro: Alert, oriented, cranial nerves II through XII grossly intact. Psychiatry: Anxious and restless. Generalized body movements Assessment & Plan Assessment/Plan (1) Opioid abuse: (2) Tobacco abuse: (3) Methamphetamine abuse: PLAN: The patient is a 20 year old F with a significant history of IV drug use ; and tobacco abuse who presents emergency department with desire for drug detoxification and with withdrawal symptoms. Opioid dependence and withdrawal Patient be started on Subutex and other adjunctive medications: Gabapentin as needed; dicyclomine as needed; Vistaril as needed; methocarbamol as needed; clonidine as needed; Imodium as needed; trazodone as needed and Zofran as needed. Monitor COWS and CINA score Tobacco abuse Counseled Nicotine patch prescribed. Methamphetamine abuse Counseled Somatic medications as above. DVT prophylaxis Low risk Encourage to ambulate Charges/Coding Visit Charges Inpatient E&M: 62558 Init Hosp L2
[2021-05-18] VITALS (7 sets, daily range): BP systolic 95–139; BP diastolic 58–89; PULSE 75–90; RESP 16–20; TEMP 36.4–36.6; O2SAT 97–100; BMI 19.5
--- NOTE | 2021-05-18 00:44 | PCS.PANDOC ---
PANDEMIC DOCUMENTATION INITIATED: Date: 05/18/2021 Time:
[2021-05-18] MEDS: traZODone 100 MG Tablet PO ×2 (00:47→20:04)
[2021-05-18] MEDS: Ondansetron 8 MG Tablet PO ×2 (00:47→08:57)
[2021-05-18] MEDS: hydrOXYzine PAM 25 MG Capsule 50 MG PO (00:56)
[2021-05-18] MEDS: Methocarbamol 750 MG Tablet 1500 MG PO ×3 (00:56→20:04)
[2021-05-18 02:13] LABS: Internal QC Validated? YES +Cl - CLEAR BKGD; Pregnancy, Serum, hCG Quali. NEGATIVE Negative
[2021-05-18] MEDS: Buprenorphine HCl 2 MG TAB.SUBL SL ×2 (02:47→09:25)
[2021-05-18] MEDS: Gabapentin 300 MG Capsule PO (09:21)
--- NOTE | 2021-05-18 10:57 | PN.HOSP_ITS ---
Documented by User: Fahad PETERSON 05/18/21 11:05 Subjective Subjective Patient is a 20-year-old female who is irritable sitting in bed, alert and orient x3. Patient reports feeling irritable, anxious and has diffuse body pains with nausea and vomiting. Patient had not receiving her as needed medications at time of evaluation. Evaluation was cut short by patient requesting to be allowed to rest. Objective Data Objective Data Vital Signs: Vital Signs Temp Pulse Resp BP Pulse Ox 98 F 79 20 H 98/60 97 05/18/21 09:01 05/18/21 09:06 05/18/21 09:06 05/18/21 09:01 05/18/21 09:06 Oxygen Delivery Method Room Air Weight: 106 lb 12.8 oz Body Mass Index (BMI) 19.5 Lab / Micro Data Labs: Laboratory Results - last 24 hr 05/18/21 01:41: Serum , Qual NEGATIVE Physical Exam Const alert and oriented x3 Exam Limitations: behavioral limitations HEENT head/scalp atraumatic and moist oral mucous membranes Head and Scalp: normocephalic Eyes PERRL, EOMs intact bilaterally and conjunctivae normal Neck no lymphadenopathy, supple and no JVD Resp normal respiratory effort, no retractions, no use of accessory muscles and clear to auscultation bilaterally Cardio regular rate, regular rhythm, no murmurs and no JVD GI normal to inspection, nondistended, normoactive bowel sounds, soft to palpation and non-tender Extremity normal to inspection, full ROM and no clubbing, cyanosis or edema Skin no rashes or lesions noted, no wounds and skin turgor normal Neuro CN's II-XII intact bilaterally Psych Attitude: agitated Mood & Affect: anxious Assessment & Plan Assessment/Plan (1) Opioid abuse: (2) Methamphetamine abuse: (3) Tobacco abuse: (4) Desire for detoxification: (5) Mild fentanyl abuse: PLAN: Day 1 Discharge planning: Unclear at this time, counselor from [facility] has not met with patient yet. 1) opiate dependence/withdrawal Patient was agitated, anxious and reported diffuse pain throughout her body with nausea and vomiting. At the time of my evaluation patient had not received as needed medications. As needed medications given immediately following my evaluation. Evaluation cut short due to patient irritability. Plan; remain admitted to [facility] for medical stabilization, continue buprenorphine taper, continue to monitor COWS and COLLINS a score, gabapentin as needed, dicyclomine as needed, Vistaril as needed, methocarbamol as needed, clonidine as needed, Imodium as needed, trazodone as needed and Zofran as needed. 2) polysubstance abuse Urine tox came out positive for opioids and methamphetamine. Cessation counseled. Plan; as above. 3) tobacco abuse Continue nicotine patch. DVT prophylaxis -low risk, not indicated Patient seen by Fahad Fraga PA-C, under the supervision of Dr. Barron. Documented by User: Dr. Gabriel Barron, 05/18/21 12:26 Subjective Subjective Feeling terrible. Earlier she had vomited. Physical Exam Const alert Constitutional Narrative: anxious. writhing in bed, then laid down easily to rest. Assessment & Plan Assessment/Plan (1) Opioid abuse: PLAN: Patient seen and examined independently. Data and vitals reviewed. I agree with the above note by the physician middle school assistant principal. 1. Opiate dependence and withdrawal. Patient very asked symptomatic this morning and very agitated. Is concerned about the buprenorphine but encouraged to continue taking it. Continue with other medications to help with other somatic complaints. 2. Polysubstance abuse: Complicates all long-term recovery. No drug screen performed during this admission. Charges/Coding Visit Charges Inpatient E&M: 73757 Subs Hosp L2
[2021-05-19] MEDS: hydrOXYzine PAM 25 MG Capsule 50 MG PO ×2 (08:21→21:21)
[2021-05-19] MEDS: Methocarbamol 750 MG Tablet 1500 MG PO ×2 (08:21→21:21)
[2021-05-19] MEDS: Acetaminophen 325 MG Tablet 650 MG PO (09:05)
--- NOTE | 2021-05-19 10:23 | NURSING ---
pt awakened for subutex and pt hitting bed with fists and throwing a tantrum saying that i told him that i would take that after i ate. i want to enjoy my last meal before i get sick! unable to reason with pt and will give it at 1230 no later. pt accepting of this
--- NOTE | 2021-05-19 11:13 | NURSING ---
per addiction liason pt with obvious signs of meth intox still. attempting to get pt to treatment center in [place] and waiting to hear back
--- NOTE | 2021-05-19 12:15 | ADDICTION ---
This telegraphic typewriter mechanic met with PT to conduct ASAM, MSE, DUDIT assessments and to plan for d/c. PT A+Ox4 and participated actively. All assessments completed, faxed to [facility] and placed in PT's chart. PT plans to f/u with [facility] for residential treatment and follow-up counseling services. PT did not indicate a need for transportation post d/c from [facility].
--- NOTE | 2021-05-19 12:24 | ADDICTION ---
This television script writer met with PT to conduct ASAM, MSE, DUDIT assessments and to plan for d/c. PT A+Ox4 and participated actively. All assessments completed, faxed to [facility] and placed in PT's chart. PT plans to f/u with [facility] in [facility] for residential and follow-up counseling services. PT did not indicate a need for transportation [facility]
--- NOTE | 2021-05-19 12:44 | PN.HOSP_ITS ---
Documented by User: Fahad PETERSON 05/19/21 12:54 Subjective Subjective Patient is a 20-year-old female comfortably resting in bed, alert and orient x3. Patient agitation from yesterday appeared improved, patient did not appear in any acute distress. Denies chest pain, shortness of breath, palpitations, hemoptysis, sputum production, fever, chills, N/V/D. Objective Data Objective Data Vital Signs: Vital Signs Temp Pulse Resp BP Pulse Ox 97.6 F L 79 16 98/58 L 99 05/18/21 20:09 05/18/21 20:09 05/18/21 20:09 05/18/21 20:09 05/18/21 20:09 Oxygen Delivery Method Room Air Weight: 106 lb 12.8 oz Body Mass Index (BMI) 19.5 Intake & Output: Intake and Output for Last 24 Hours 05/17/21 05/18/21 05/19/21 23:59 23:59 23:59 Intake Total 1200 / 1200 Output Total 250 / 250 Balance 950 / 950 Physical Exam Const alert, oriented x3 and no apparent distress HEENT head/scalp atraumatic and moist oral mucous membranes Head and Scalp: normocephalic Eyes PERRL, EOMs intact bilaterally and conjunctivae normal Neck no lymphadenopathy, supple and no JVD Resp normal respiratory effort, no retractions, no use of accessory muscles and clear to auscultation bilaterally Cardio regular rate, regular rhythm, no murmurs and no JVD GI normal to inspection, nondistended, normoactive bowel sounds, soft to palpation and non-tender Extremity normal to inspection, full ROM and no clubbing, cyanosis or edema Skin no rashes or lesions noted, no wounds, skin turgor normal and no jaundice Neuro CN's II-XII intact bilaterally Psych affect normal Assessment & Plan Assessment/Plan (1) Opioid abuse: (2) Methamphetamine abuse: (3) Tobacco abuse: (4) Desire for detoxification: PLAN: Day 2 Discharge planning: Patient plans to follow-up with [facility] for residential treatment and follow-up counseling services at discharge. 1) opiate dependence/withdrawal Patient was refusing buprenorphine taper earlier today. Patient was advised that if she was going to refuse treatment that she would be discharged. Patient was agreeable to continuing buprenorphine taper as she would like to be transferred from here to inpatient therapy for detox. Plan; remain admitted to [facility] for medical stabilization, continue buprenorphine taper, continue to monitor COWS and COLLINS a score, gabapentin as needed, dicyclomine as needed, Vistaril as needed, methocarbamol as needed, clonidine as needed, Imodium as needed, trazodone as needed and Zofran as needed. 2) polysubstance abuse Urine tox came out positive for opioids and methamphetamine. Cessation counseled. Plan; as above. 3) tobacco abuse Continue nicotine patch. DVT prophylaxis -low risk, not indicated Patient seen by Fahad Fraga PA-C, under the supervision of Dr. Barron. Documented by User: Dr. Gabriel Barron, 05/19/21 15:32 Subjective Subjective Now agreeing to taking buprenorphine. Physical Exam Const alert Resp normal respiratory effort Neuro Sensorium / Orientation: awake and alert Psych affect normal Assessment & Plan Assessment/Plan (1) Opioid abuse: PLAN: Patient seen and examined independently. Data and vitals reviewed. I agree with the above note by the physician pathologist assistant. 1. Opiate dependence and withdrawal. Patient very asked symptomatic this morning and very agitated. Patient previously declined taking buprenorphine but is now agreeing to take it. 2. Polysubstance abuse: Complicates all long-term recovery. No drug screen performed during this admission. Charges/Coding Visit Charges Inpatient E&M: 42083 Subs Hosp L2
[2021-05-19] MEDS: Gabapentin 300 MG Capsule PO (12:52)
[2021-05-19] MEDS: Buprenorphine HCl 2 MG TAB.SUBL SL (12:52)
--- NOTE | 2021-05-19 14:22 | CHAPLAIN ---
Type of Pastoral Visit _x__ Initial Visit ___ Follow-up Visit ___ On-call Visit ___ General Patient Visit ___ Spiritual Assessment ___ Family Conference ___ Bereavement ___ Rapid Response ___ Code Blue ___ Other (describe below) Pastoral Care Referral From _x__ Patient ___ Family ___ Nurse ___ Physician ___ Instructional Systems Specialist ___ Casualty Insurance Claim Adjuster ___ Other (describe below) Sacrament/Intervention _x__ Active listening ___ Anointing ___ Muslim ___ Bereavement ___ Communion ___ Katya exploration ___ ___ Life review _x__ Prayer ___ Reconciliation ___ Sacrament of Sick _x__ Supportive presence ___ Wedding ___ Other (describe below) Pastoral Comments patient has spastic movements and temper flair up as she talks about her life and situation; pt requests prayer for self; assisted SW in goal of finding addresses for pt so she could have insurance help
--- NOTE | 2021-05-19 14:45 | CASEMGMT ---
Addendum entered by Sandra Swanson 05/19/21 15:53: SW did let pt know that she will be going to [facility] in [place] tomorrow. HUMBLE Tripathi Original Note: SW spoke w/Francois, she is working on setting up transport for pt to [facility] in [place] through pt's [employer]. SW spoke w/pt about her address as insurance sometimes asks for this in order to set up transport--and pt is listed as homeless. Pt is not certain what address would be on file with [employer]. She did give the pantry goods maker who was in the room a few addresses, including [address] [facility]. SW let Francois know, she is in the process of arranging transport for the morning through pt's [employer] insurance and will either let this SW know the time or let the staff know tomorrow. SW did attempt to let pt know that she is accepted and will go in the morning to [facility], however pt is sleeping at this time. HUMBLE Tripathi
[2021-05-19 15:00] VITALS: BP 104/69; PULSE 106; RESP 16; TEMP 36.6; O2SAT 96
[2021-05-19 21:02] VITALS: BP 97/57; PULSE 94; RESP 18; TEMP 36.8; O2SAT 100
[2021-05-19] MEDS: traZODone 100 MG Tablet PO (21:42)
[2021-05-20 01:15] VITALS: BP 99/58; PULSE 91; RESP 18; TEMP 36.7; O2SAT 99
[2021-05-20] MEDS: Buprenorphine HCl 2 MG TAB.SUBL SL ×2 (01:18→13:14)
[2021-05-20] MEDS: hydrOXYzine PAM 25 MG Capsule 50 MG PO (07:36)
[2021-05-20] MEDS: Acetaminophen 325 MG Tablet 650 MG PO (07:36)
[2021-05-20 07:57] VITALS: BP 106/75; PULSE 105; RESP 16; TEMP 36.4; O2SAT 96
--- NOTE | 2021-05-20 09:36 | PCM.DC ---
Discharge Instructions Diet Discharge Diet: No restrictions Activity Discharge Activity: Return to Normal Activity Weight Bearing Status: Weight bearing as tolerated Dressing / Incision Call your doctor if you observe: Fever of 101 or Higher, Numbness or Tingling, Shortness of breath, Dizziness, Chest pain, Increased palpitations (irregular heartbeat) and Calf discomfort Follow Up Care Please Follow Up With: Primary care provider When: Within the next two weeks. Test Results: Test results from this visit will be discussed in further detail at your follow-up appointment, if applicable. Discharge Plan Admission Admit Date/Time: 05/17/21 22:35 Primary Reason for Your Visit: Opiate withdrawal. Attending Provider: Gabriel Barron Primary Care Provider: Care Physician,Payal Primary Discharge Orders/Prescriptions Referrals / Follow Up: Jacob Lau MD [STAFF PHYSICIAN] - Within 2 Weeks (To establish primary care. ) Disposition Disposition (needs filled in before D/C Order can be placed): Home, Self Care
--- NOTE | 2021-05-20 10:12 | NURSING ---
pt broke zip ties and had belongings spilled all over bed. pt dressed in own clothes. was out in jiang sitting in massage chair earlier and nurse sent back to room.
--- NOTE | 2021-05-20 10:13 | CASEMGMT ---
Addendum entered by Margareth Shah 05/20/21 13:36: 1335- Called [facility] , s/w Abiola and per notes by other staff this sign writer letterer or painter was disconnected with- s/w transportation company [employer] and ETA 20-30 minutes. Primary nurse Genesis updated. ANGELES Rubio Original Note: 0905- S/w [facility] Francois [phone] to inquire about [place] [facility] ETA. Advised to f/u with [facility] at 0940- Called above, s/w Maribell and states that she does not see patient scheduled for transportation and that their system for scheduling has been not working right. This sign writer letterer or painter provided [facility] address and [facility] address in [place] along with Francois -[facility] contact to inquire about ETA of needing to arrive at [facility] to coordinate transportation. Francois did not answer. Per Maribell Parrish call the office at [phone]. S/w Francois and provided number above to relay info and coordinate transportation. 1013- Return call from Francois and states that transportation had to be set up like new as they did not have patient in the system. States told them patient needed to arrive at facility by 3pm. Transportation will call [facility] [place] when 15-20 minutes out to pick patient up. Trip #[id number]. Primary nurse Genesis updated. ANGELES Rubio
--- NOTE | 2021-05-20 13:04 | PCM.DC.SUM ---
Documented by User: Fahad PETERSON 05/20/21 13:08 Providers Date of Admission: 05/17/21 Primary Care Physician: No Primary Care Phys Reason For Visit: OPIOID DETOXIFICATION Diagnosis Discharge Diagnosis (1) Opioid abuse: Status: Acute Code(s): F11.10 - Opioid abuse, uncomplicated Hospital Course Summary of Care Provided Minutes Spent on Discharge: 35 Hospital Course: Disposition: Patient to report to [facility] in [facility] for residential and follow-up counseling services. 1) opiate dependence/withdrawal Patient was compliant with buprenorphine taper after counseling on 05/19. Discharge plan as above. 2) polysubstance abuse Urine tox came out positive for opioids and methamphetamine. Cessation counseled. Plan; as above. 3) tobacco abuse Cessation counseled. Patient seen by Fahad Fraga PA-C, under the supervision of Dr. Barron. Physical Exam Narrative Patient is a 20-year-old female comfortably resting in bed, alert and orient x3. Patient denies development of any new symptoms overnight. Denies chest pain, shortness of breath, palpitations, hemoptysis, sputum production, fever, chills, N/V/D. Const alert, oriented x3 and no apparent distress HEENT normocephalic, head/scalp atraumatic and hearing grossly normal bilaterally Eyes PERRL, EOMs intact bilaterally and conjunctivae normal Neck no lymphadenopathy, supple and no JVD Resp normal respiratory effort, no retractions, no use of accessory muscles and clear to auscultation bilaterally Cardio no murmurs and no JVD Rate: tachycardic Peripheral Pulses: pulses 2+ throughout GI normal to inspection, nondistended, normoactive bowel sounds, soft to palpation and non-tender Extremity normal to inspection, full ROM and no clubbing, cyanosis or edema Skin no rashes or lesions noted, no wounds and skin turgor normal Neuro CN's II-XII intact bilaterally Psych affect normal Weight / BMI Weight Weight: 106 lb 12.8 oz Body Mass Index (BMI) 19.5 D/C Instructions Discharge Diet: No restrictions Weight Bearing Status: Weight bearing as tolerated Call your doctor if you observe: Fever of 101 or Higher, Numbness or Tingling, Shortness of breath, Dizziness, Chest pain, Increased palpitations (irregular heartbeat) and Calf discomfort Please Follow Up With: Primary care provider When: Within the next two weeks. Meaningful Use Info Meaningful Use Diagnoses (Choose all that apply): None applicable Discharge Plan Admission Admit Date/Time: 05/17/21 22:35 Primary Reason for Your Visit: Opiate withdrawal. Attending Provider: Gabriel Barron Primary Care Provider: Payal Madrigal Primary Discharge Orders/Prescriptions Referrals / Follow Up: Jacob Lau MD [STAFF PHYSICIAN] - Within 2 Weeks (To establish primary care. ) Disposition Disposition (needs filled in before D/C Order can be placed): Home, Self Care Documented by User: Dr. Gabriel Barron DO 05/20/21 13:16 Providers Date of Admission: 05/17/21 Reason For Visit: OPIOID DETOXIFICATION Hospital Course Operations None Procedures None Summary of Care Provided Hospital Course: This is a 20-year-old female presents with acute opiate withdrawal. Patient had drug screen was positive for amphetamines as well as cannabinoids. Patient initially started taking buprenorphine but then declined it. When I discussed with her that she would be discharged she agreed to take it and then today patient was feeling better and anxious to go to the residential program in [facility]. Physical Exam Const alert Neuro Sensorium / Orientation: awake and alert Psych affect normal Discharge Plan Admission Admit Date/Time: 05/17/21 22:35 Primary Reason for Your Visit: Opiate withdrawal. Attending Provider: Gabriel Barron Primary Care Provider: Windy Mcclellan,Payal Primary Discharge Orders/Prescriptions Referrals / Follow Up: Jacob Lau MD [STAFF PHYSICIAN] - Within 2 Weeks (To establish primary care. ) Disposition Disposition (needs filled in before D/C Order can be placed): Home, Self Care Charges/Coding Visit Charges Inpatient E&M: 31093 Disch Hosp
== END 2021-05-20 13:57 | disposition home or self-care (01) | DRG 773 ==
LOC: ED 22:24 → MS2 22:49
PROVIDERS: Admitting Provider Hospitalist; Emergency Provider Emergency Medicine
DX: F11.23 Opioid dependence with withdrawal (principal); F15.10 Other stimulant abuse, uncomplicated; J45.909 Unspecified asthma, uncomplicated; F17.210 Nicotine dependence, cigarettes, uncomplicated; Z23 Encounter for immunization
CPT/HCPCS: 36415; 84703; 99283; 99406

== ENCOUNTER → 2022-01-13 | Outpatient (CLI) | payer MEDICAID, SELFPAY ==
[2022-01-13 09:40] LABS: Absolute Neutrophil Count 3.1 X10^3/uL (2.0-7.7); Basophil# 0.09 X10^3/uL; Basophil% 1.2 % (0-1); Eosinophil# 0.32 X10^3/uL; Eosinophils% 4.1 % (0-5); Hematocrit 43.3 % (37-47); Hemoglobin 14.4 g/dL (12.0-15.0); Lymphocyte % 43.6 % (19-41); Mean Corp Hgb Conc 33.3 g/dL (32-36); Mean Corpuscular Hgb 30.6 pg (27.0-32.0); Mean Corpuscular Volume 91.9 fL (81-99); Monocyte# 0.86 X10^3/uL; NRBC Flagged by Analyzer 0 % (0-5); Neutrophil # 3.11 X10^3/uL (2.7-7.7); Platelet Count 326 K/mm3 (150-450); RBC Distribution Width CV 13.1 % (11.6-14.6); RBC Distribution Width SD 44.3 fl (35.1-43.9); Red Blood Count 4.71 M/mm3 (4.2-5.4); White Blood Count 7.8 K/mm3 (4.4-11.0)
[2022-01-13 10:08] LABS: Internal QC Validated? YES +Cl - CLEAR BKGD; Pregnancy, Serum, hCG Quali. NEGATIVE Negative
[2022-01-13 10:15] LABS: Cholesterol 133 mg/dL (200); High Density Lipoprotein 39 mg/dL; T4 Free Direct 0.92 ng/dL (0.76-1.46); Thyroid Stim Hormone (TSH) 1.61 uIU/mL (0.358-3.74); Triglycerides 219 mg/dL; Very Low Density Lipoprotein 44 mg/dL (5-40)
[2022-01-13 10:28] LABS: Hemoglobin A1c 5.1 % (3.8-5.6)
[2022-01-14 09:50] LABS: AST(SGOT) 48 U/L (15-37); Alanine Aminotransfer ALT/SGPT 57 U/L (13-56); Albumin, Serum 3.9 g/dL (3.2-5.0); Alkaline Phosphatase 79 U/L (45-117); Anion Gap 9 (5-15); BUN 14 mg/dL (7-18); BUN/Creat Ratio 17.6 RATIO (10-20); Calcium,Total 9.5 mg/dL (8.5-10.1); Chloride 105 mmol/L (98-107); Creatinine, Serum 0.79 mg/dL (0.55-1.02); EST Glomerular Filtration Rate 96 mL/min (>60); Est Glom Filt Rate - Afr Amer 116 mL/min (>60); Globulin 3.8 g/dL (2.2-4.2); Glucose 72 mg/dL (74-106); Protein, Total 7.7 g/dL (6.4-8.2); Sodium Level 140 mmol/L (136-145)
[2022-01-14 22:07] LABS: HCV Quant. RNA PCR 108000 IU/mL (.)
[2022-01-14 22:29] LABS: HCV log 10 5.033 (.); HIV 1/0/2 SCREEN 4TH GEN Non Reactive (Non Reactive)
== END | disposition home or self-care (01) ==
DX: N92.6 Irregular menstruation, unspecified (principal); B18.2 Chronic viral hepatitis C
CPT/HCPCS: 36415; 80053; 80061; 83036; 84439; 84443; 84703; 85025; 86703; 87522

== ENCOUNTER → 2022-05-06 | Outpatient (CLI) | payer MEDICAID, SELFPAY ==
[2022-05-06 16:45] LABS: Absolute Lymphocyte Count 2.61 X10^3/uL (0.83-4.51); Absolute Neutrophil Count 3.3 X10^3/uL (2.0-7.7); Basophil# 0.05 X10^3/uL; Basophil% 0.8 % (0-1); Eosinophil# 0.11 X10^3/uL; Eosinophils% 1.7 % (0-5); Hematocrit 40.6 % (37-47); Hemoglobin 13.4 g/dL (12.0-15.0); Lymphocyte # 2.61 X10^3/ul (0.83-4.51); Lymphocyte % 39.7 % (19-41); Mean Corpuscular Hgb 30.2 pg (27.0-32.0); Mean Corpuscular Volume 91.4 fL (81-99); Mean Platelet Vol. 9.8 fl (6.2-12.0); Monocyte# 0.54 X10^3/uL; Monocyte% 8.2 % (0-10); NRBC Flagged by Analyzer 0 % (0-5); Neutrophil # 3.26 X10^3/uL (2.7-7.7); Neutrophil % 49.4 % (47-70); Platelet Count 272 K/mm3 (150-450); RBC Distribution Width CV 12.2 % (11.6-14.6); RBC Distribution Width SD 40.7 fl (35.1-43.9); Red Blood Count 4.44 M/mm3 (4.2-5.4); White Blood Count 6.6 K/mm3 (4.4-11.0)
[2022-05-06 17:11] LABS: Internal QC Validated? YES +Cl - CLEAR BKGD; Pregnancy, Serum, hCG Quali. NEGATIVE Negative
[2022-05-06 17:25] LABS: Amphetamine Urine VISTA POSITIVE (<1000 ng/mL); Barbiturate Urine VISTA NEGATIVE (< 200 ng/mL); Benzodiazepine Urine VISTA NEGATIVE (< 200 ng/mL); Cocaine Urine VISTA NEGATIVE (< 300 ng/mL); Ecstacy Urine VISTA POSITIVE (< 500 ng/mL); Methadone Urine VISTA NEGATIVE (< 300 ng/mL); PCP Urine VISTA NEGATIVE (< 25 ng/mL); THC Urine VISTA POSITIVE (< 50 ng/mL); Vista UDS pH Range 5
[2022-05-06 17:41] LABS: AST(SGOT) 39 U/L (15-37); Alanine Aminotransfer ALT/SGPT 52 U/L (13-56); Alkaline Phosphatase 80 U/L (45-117); Anion Gap 7 (5-15); BUN 8 mg/dL (7-18); BUN/Creat Ratio 7.7 RATIO (10-20); Calcium,Total 9.2 mg/dL (8.5-10.1); Chloride 106 mmol/L (98-107); Creatinine, Serum 1.04 mg/dL (0.55-1.02); EST Glomerular Filtration Rate 70 mL/min (>60); Est Glom Filt Rate - Afr Amer 85 mL/min (>60); Globulin 3.9 g/dL (2.2-4.2); Glucose 93 mg/dL (74-106); Potassium 3.4 mmol/L (3.5-5.1); Protein, Total 7.9 g/dL (6.4-8.2); Sodium Level 141 mmol/L (136-145); Thyroid Stim Hormone (TSH) 0.95 uIU/mL (0.358-3.74)
[2022-05-07 08:53] LABS: HIV - WCH Non-Reactive (Nonreactive); Hepatitis C Antibody REACTIVE (Nonreactive); Syphilis Antibodies Reactive
[2022-05-16 15:08] LABS: Lyme IgG P18 Ab Absent (.); Lyme IgG P23 Ab Absent (.); Lyme IgG P28 Ab Absent (.); Lyme IgG P30 Ab Absent (.); Lyme IgG P39 Ab Absent (.); Lyme IgG P41 Ab Absent (.); Lyme IgG P45 Ab Absent (.); Lyme IgG P58 Ab Absent (.); Lyme IgG P66 Ab Absent (.); Lyme IgG P93 Ab Absent (.); Lyme IgM P23 Ab Absent (.); Lyme IgM P39 Ab Present (.); Lyme IgM P41 Ab Absent (.)
[2022-05-17 09:36] LABS: Lyme IgG WB Interpretation Negative (.); Lyme IgM WB Interpretation Negative (.); Trileptal-Oxcarbazepine < 1 ug/mL (10-35)
== END | disposition home or self-care (01) ==
LOC: LAB 16:21
PROVIDERS: Referring Provider Family Medicine; Visit Provider Family Medicine
DX: F25.9 Schizoaffective disorder, unspecified (principal); Z11.3 Encounter for screening for infections with a predominantly sexual mode of transmission; Z72.51 High risk heterosexual behavior; R53.83 Other fatigue
CPT/HCPCS: 36415; 80053; 80307; 82542; 84443; 84703; 85025; 86617; 86703; 86780; 86803

== ENCOUNTER → 2022-05-18 | Outpatient (CLI) | payer MEDICAID, SELFPAY ==
[2022-05-19 09:10] LABS: Hepatitis B Surface Antibody Non-Reactive; Hepatitis B Surface Antigen Non-Reactive (Nonreactive)
[2022-05-21 11:36] LABS: Hepatitis A AB, Total Positive (Negative)
== END | disposition home or self-care (01) ==
LOC: LAB 14:17
PROVIDERS: Visit Provider Family Medicine
DX: B17.10 Acute hepatitis C without hepatic coma (principal)
CPT/HCPCS: 87522; 36415; 86706; 86708; 87340

== ENCOUNTER 2022-07-08 10:52 | Emergency (ER) | payer MEDICAID, SELFPAY ==
[2022-07-08 10:52] VITALS: BP 115/84; PULSE 93; RESP 16; TEMP 36.4; O2SAT 98; BMI 21.0
--- NOTE | 2022-07-08 11:39 | EX.ED.DYSGE1 ---
HPI History of Present Illness Chief Complaint: Abd Pain Informant: patient Onset/Context/Timing Onset: Yesterday Context: Gradual Onset Timing: Waxes and wanes Current Severity: Mild Maximum Severity: Severe Narrative Narrative: Patient present secondary to abdominal cramping and vomiting. She states she is try to detox from meth herself and has not used in the last 2 days. Last evening she developed abdominal cramping with vomiting. She was not able to get comfortable at home. She states she is supposed to be on multiple medications but has not been taking them. [facility] Medical History Anxiety Asthma Bipolar disorder Depression Desire for detoxification Drug abuse Hepatitis C Methamphetamine abuse Mild fentanyl abuse Opioid abuse Seizures Substance abuse Tobacco abuse Home Medications promethazine 25 mg tablet 25 mg PO Q4H PRN nausea and vomiting #20 tabs 07/08/22 [Rx Last Taken Unknown] Allergy/AdvReac Type Severity Reaction Status Date / Time almond [almonds] Allergy Anaphylaxis Verified 07/08/22 10:54 tree nut Allergy Anaphylaxis Verified 06/05/22 08:40 Family History Other Drug abuse Surgical History History of tonsillectomy Social History household members: significant other Smoking Status: Current every day smoker tobacco type: cigarettes alcohol intake: current alcohol intake frequency: a few times a week substance use type: marijuana ROS ROS ED Constitutional Constitutional ED: Denies chills or fever(s) Eyes Eyes: Denies change in vision or discharge from eye(s) ENT ENT ED: Denies discharge from eye(s), rhinorrhea or sore throat Cardiovascular Cardiovascular: Denies chest pain or palpitations Respiratory/Chest Respiratory/Chest: Denies cough or dyspnea Gastrointestinal Gastrointestinal: Reports abdominal pain, nausea and vomiting; Denies diarrhea Genitourinary Genitourinary ED: Denies difficulty urinating or dysuria Musculoskeletal Musculoskeletal: Denies back pain or extremity pain Integumentary Denies Abrasions or rash Neurologic Neurologic: Denies headache(s) or weakness Psychiatric Psychiatric: Reports anxiety Allergic/Immunologic Allergic/Immunologic ED: Denies lip swelling or urticaria EXAM Physical Exam Const Vital Signs: 07/08/22 10:52 Temperature 97.6 F L Temperature Source Temporal Pulse Rate 93 Respiratory Rate 16 Blood Pressure 115/84 H Blood Pressure Mean 94 Pulse Ox 98 Oxygen Delivery Method Room Air Positive well nourished and well developed General Appearance ED: well developed HEENT Reports normocephalic and head/scalp atraumatic Eyes PERRL and EOMs intact bilaterally Neck supple Chest Wall inspection of chest normal and palpation of chest normal Resp normal respiratory effort and clear to auscultation bilaterally Cardio regular rate and regular rhythm GI GI Narrative: Abdomen soft with mild lower abdominal tenderness. No guarding or rebound. Palpation: soft Back/Spine no CVA tenderness Extremity normal to inspection Neuro oriented x3 and no sensory deficits noted Sensorium / Orientation: alert Motor Exam: strength 5/5 throughout Psych mental status grossly normal Skin no rashes or lesions noted MDM MDM MDM Narrative Medical decision making narrative: Patient was initially given IV fluids along with Zofran and Bentyl. Due to continued pain she was given 30 mg of Toradol. Lab work and urinalysis obtained. Lab Data Attestation: I reviewed the patient's lab results. Labs: Laboratory Results - last 24 hr 07/08/22 07/08/22 07/08/22 11:35 11:35 11:35 WBC 7.1 RBC 4.62 Hgb 14.6 Hct 42.1 MCV 91.1 MCH 31.6 MCHC 34.7 RDW Std Deviation 42.5 RDW Coeff of Shanda 12.9 Plt Count 278 MPV 9.9 Immature Gran % (Auto) 0.300 Neut % (Auto) 67.7 Lymph % (Auto) 25.0 [place] % (Auto) 6.2 Eos % (Auto) 0.7 Baso % (Auto) 0.1 Absolute Neuts (auto) 4.8 Absolute Lymphs (auto) 1.77 Nucleated RBC % 0 Sodium 137 Potassium 4.0 Chloride 102 Carbon Dioxide 31.0 Anion Gap 4 L BUN 13 Creatinine 0.62 Estim Creat Clear Calc 112.57 Est GFR (MDRD) Af Amer 152 Est GFR (MDRD) Non-Af 126 BUN/Creatinine Ratio 20.8 H Glucose 109 H Calcium 9.5 Total Bilirubin 0.20 Direct Bilirubin 0.08 AST 83 H ALT 114 H Alkaline Phosphatase 54 Total Protein 7.0 Albumin 3.5 Globulin 3.5 Serum , Qual NEGATIVE Urine Color Urine Clarity Urine pH Ur Specific [place] Urine Protein Urine Glucose (UA) Urine Ketones Urine Occult Blood Urine Nitrite Urine Bilirubin Urine Urobilinogen Ur Leukocyte Esterase Urine RBC Urine WBC Ur Squamous Epith Cells Amorphous Sediment Urine Bacteria Urine Mucus 07/08/22 11:35 WBC RBC Hgb Hct MCV MCH MCHC RDW Std Deviation RDW Coeff of Shanda Plt Count MPV Immature Gran % (Auto) Neut % (Auto) Lymph % (Auto) [place] % (Auto) Eos % (Auto) Baso % (Auto) Absolute Neuts (auto) Absolute Lymphs (auto) Nucleated RBC % Sodium Potassium Chloride Carbon Dioxide Anion Gap BUN Creatinine Estim Creat Clear Calc Est GFR (MDRD) Af Amer Est GFR (MDRD) Non-Af BUN/Creatinine Ratio Glucose Calcium Total Bilirubin Direct Bilirubin AST ALT Alkaline Phosphatase Total Protein Albumin Globulin Serum , Qual Urine Color Yellow Urine Clarity Sl. Cloudy Urine pH 8.0 Ur Specific [place] 1.015 Urine Protein Negative Urine Glucose (UA) Normal Urine Ketones Negative Urine Occult Blood Negative Urine Nitrite Negative Urine Bilirubin Negative Urine Urobilinogen Normal Ur Leukocyte Esterase Negative Urine RBC 0 SEEN Urine WBC 0 SEEN Ur Squamous Epith Cells 0-5 SEEN Amorphous Sediment 2+ Urine Bacteria 1+ Urine Mucus 0 SEEN Treatment and Re-Evaluation Narrative: CBC and chemistry studies unremarkable. LFTs normal. test negative. Urinalysis reveals no sign of acute infection. On repeat evaluation she was resting and asking for something to eat. Nursing staff states that shortly after eating she started yelling out in pain again and complaining of nausea. She is given Phenergan which seem to control her nausea better. She was able to tolerate p.o. Tylenol. She states that she is calling her brother to come pick her up. I advised patient that this is likely secondary to her detox from meth. She is already active with [facility] and is in contact with them daily. Prescription for Phenergan will be sent with her. Discharge Plan Triage Chief Complaint: Abd Pain ED Provider: Angeles Rivera Dx/Rx/DC Orders Clinical Impression: Vomiting, Abdominal pain, Acute drug withdrawal syndrome Instructions: Meth Abuse Addiction, ED Abdominal Pain Unkn Cause Fem, ED Vomiting (Adult) Prescriptions: New promethazine 25 mg tablet 25 mg PO Q4H PRN (Reason: nausea and vomiting) Qty: 20 0RF Primary Care Provider: Medical Екатерина Gutierrez Referrals: [facility] [Non-Staff] - [facility] soon as possible [facility]Екатерина De La O [Primary Care Provider] - Disposition Disposition: Home, Self Care
[2022-07-08] MEDS: Dicyclomine 20 MG/2 ML Vial IM (11:48)
[2022-07-08] MEDS: 0.9% Normal Saline 1,000 ML 999 ML IV (11:48)
[2022-07-08] MEDS: Ondansetron 4 MG/2 ML Vial IV (11:48)
[2022-07-08 11:51] LABS: Mucous, Urine 0 SEEN /hpf (<or=2+); Red Blood Cells-Urine 0 SEEN /hpf (0-5); White Blood Cells 0 SEEN /hpf (0-5)
[2022-07-08 11:52] LABS: Absolute Lymphocyte Count 1.77 X10^3/uL (0.83-4.51); Absolute Neutrophil Count 4.8 X10^3/uL (2.0-7.7); Basophil# 0.01 X10^3/uL; Basophil% 0.1 % (0-1); Eosinophil# 0.05 X10^3/uL; Eosinophils% 0.7 % (0-5); Hematocrit 42.1 % (37-47); Hemoglobin 14.6 g/dL (12.0-15.0); Lymphocyte # 1.77 X10^3/ul (0.83-4.51); Mean Corp Hgb Conc 34.7 g/dL (32-36); Mean Corpuscular Hgb 31.6 pg (27.0-32.0); Mean Corpuscular Volume 91.1 fL (81-99); Mean Platelet Vol. 9.9 fl (6.2-12.0); Monocyte# 0.44 X10^3/uL; Monocyte% 6.2 % (0-10); NRBC Flagged by Analyzer 0 % (0-5); Neutrophil # 4.78 X10^3/uL (2.7-7.7); Neutrophil % 67.7 % (47-70); Platelet Count 278 K/mm3 (150-450); RBC Distribution Width CV 12.9 % (11.6-14.6); RBC Distribution Width SD 42.5 fl (35.1-43.9); Red Blood Count 4.62 M/mm3 (4.2-5.4); White Blood Count 7.1 K/mm3 (4.4-11.0)
[2022-07-08 12:00] LABS: Internal QC Validated? YES +Cl - CLEAR BKGD; Pregnancy, Serum, hCG Quali. NEGATIVE Negative
[2022-07-08 12:05] LABS: Color, Urine Yellow (Yellow); Glucose, Dipstick Normal (Normal); Ketone-Dipstick Negative (Negative); Leukocyte Esterase-Dipstick Negative /ul (Negative); Nitrite-Dipstick Negative (Negative); Occult Blood-Urine Negative /ul (Negative); Protein-Dipstick Negative (Negative); Specific Gravity, Urine 1.015 (1.002-1.030); Urine Bilirubin Dipstick Negative (Negative); Urine Clarity Sl. Cloudy (Clear); Urine Urobilinogen Normal (Normal)
[2022-07-08 12:09] LABS: AST(SGOT) 83 U/L (15-37); Alanine Aminotransfer ALT/SGPT 114 U/L (13-56); Albumin, Serum 3.5 g/dL (3.2-5.0); Alkaline Phosphatase 54 U/L (45-117); Anion Gap 4 (5-15); BUN 13 mg/dL (7-18); BUN/Creat Ratio 20.8 RATIO (10-20); Bilirubin, Direct 0.08 mg/dL (0.00-0.30); Calcium,Total 9.5 mg/dL (8.5-10.1); Chloride 102 mmol/L (98-107); Creatinine, Serum 0.62 mg/dL (0.55-1.02); EST Glomerular Filtration Rate 126 mL/min (>60); Est Glom Filt Rate - Afr Amer 152 mL/min (>60); Estimated Creatinine Clearance 112.57 ml/min; Globulin 3.5 g/dL (2.2-4.2); Glucose 109 mg/dL (74-106); Sodium Level 137 mmol/L (136-145)
[2022-07-08 12:14] LABS: Amorphous Sediment 2+; Squamous Epithelial Cells - UA 0-5 SEEN /hpf (5-10)
[2022-07-08 12:15] LABS: Bacteria 1+ /hpf (None Seen)
[2022-07-08] MEDS: Ketorolac 30 MG/ML Syringe IV (12:30)
[2022-07-08] MEDS: proMETHazine 25 MG/ML Syringe 12.5 MG IM ×2 (12:31→15:34)
[2022-07-08] MEDS: Acetaminophen 500 MG Tablet 1000 MG PO (15:27)
== END 2022-07-08 15:58 | disposition home or self-care (01) ==
PROVIDERS: Emergency Provider Emergency Medicine; Visit Provider Emergency Medicine
DX: R11.10 Vomiting, unspecified (principal); R10.9 Unspecified abdominal pain; F12.90 Cannabis use, unspecified, uncomplicated; F17.210 Nicotine dependence, cigarettes, uncomplicated
CPT/HCPCS: 80048; 80076; 81001; 84703; 85025; 96372; 96374; 96375; 99284; J7030; J2405

== ENCOUNTER 2022-08-25 14:44 | Emergency (ER) | payer MEDICAID, SELFPAY ==
[2022-08-25 14:45] VITALS: BP 134/122; PULSE 107; RESP 14; TEMP 36.4; O2SAT 100; BMI 17.2
--- NOTE | 2022-08-25 15:10 | EDS_ITS ---
HPI History of Present Illness Chief Complaint: Overdose Informant: patient, EMS and police/certified social workers in health care Onset/Context/Timing Onset: Today Context: Sudden Onset Quality: Altered mental status Location: Generalized Worsened by: Nothing Relieved by: Nothing Associated Symptoms Associated Symptoms: Positive for change in mental status; Negative for vomiting*, diarrhea*, fever*, rash*, seizure, tremor, palpatations, trauma, suicidal ideation or homicidal ideation Narrative Narrative: Patient presents after overdose on heroin. Patient overdosed today. Patient normally injects her heroin. Patient was at [facility] when she overdosed. EMS was called. Patient was brought to the emergency department. Patient admits to some shortness of breath. Patient states she did have an episode of nausea and vomiting today. Patient also admits to some blurry vision and double vision. PFSH [facility] Medical History Anxiety Asthma Bipolar disorder Depression Desire for detoxification Drug abuse Hepatitis C Methamphetamine abuse Mild fentanyl abuse Opioid abuse Seizures Substance abuse Tobacco abuse Home Medications promethazine 25 mg tablet 25 mg PO Q4H PRN nausea and vomiting #20 tabs 07/08/22 [Rx Last Taken Unknown] Allergy/AdvReac Type Severity Reaction Status Date / Time almond [almonds] Allergy Anaphylaxis Verified 08/25/22 14:48 tree nut Allergy Anaphylaxis Verified 08/25/22 14:48 Family History Other Drug abuse Surgical History History of tonsillectomy Social History household members: significant other Smoking Status: Current every day smoker tobacco type: cigarettes alcohol intake: current alcohol intake frequency: a few times a week substance use type: marijuana ROS ROS ED Constitutional Constitutional ED: Denies chills or fever(s) Eyes Eyes: Reports blurry vision; Denies change in vision ENT ENT ED: Reports sore throat; Denies rhinorrhea Cardiovascular Cardiovascular: Denies chest pain or palpitations Respiratory/Chest Respiratory/Chest: Reports dyspnea; Denies cough Gastrointestinal Gastrointestinal: Reports nausea and vomiting Genitourinary Genitourinary ED: Denies dysuria or hematuria Musculoskeletal Musculoskeletal: Reports back pain and neck pain Integumentary Denies abscess or rash Neurologic Neurologic: Reports headache(s); Denies weakness Allergic/Immunologic Allergic/Immunologic ED: Denies mouth swelling or urticaria EXAM Physical Exam Const Vital Signs: 08/25/22 14:45 Temperature 97.6 F L Temperature Source Temporal Pulse Rate 107 H Respiratory Rate 14 Blood Pressure 134/122 H Blood Pressure Mean 126 Pulse Ox 100 Oxygen Delivery Method Room Air Positive well nourished and well developed General Appearance ED: well developed and NAD HEENT Reports moist mucous membranes Neck supple and no JVD Resp normal respiratory effort and clear to auscultation bilaterally Cardio regular rate, regular rhythm and no murmurs GI normal to inspection, nondistended, normoactive bowel sounds and non-tender Palpation: soft Extremity normal to inspection General Extremety ED: Negative for edema or tenderness General Extremity: Negative for edema Neuro oriented x3, CN's II-XII intact bilaterally and no sensory deficits noted Sensorium / Orientation: alert Motor Exam: strength 5/5 throughout Psych mental status grossly normal Skin no rashes or lesions noted MDM MDM MDM Narrative Medical decision making narrative: CBC was obtained. Results were reviewed. This was all within normal limits. Comprehensive metabolic profile was obtained. Results were reviewed. These were also within normal limits with the exception of a slightly elevated AST of 81 and ALT of 111. Serum alcohol level was obtained and was reviewed. This was less than 3.0. Patient is sleeping on reevaluation but wakes up immediately to verbal stimuli. Patient's heart rate improved on reevaluation. Patient was advised of her findings. Patient was instructed to get plenty of rest. Patient was instructed to drink plenty of fluids. Patient was instructed to follow-up with her primary care physician in 5 to 7 days. Patient understood and was agreeable with the plan. All questions were answered. Lab Data Attestation: I reviewed the patient's lab results. Labs: Laboratory Results - last 24 hr 08/25/22 08/25/22 08/25/22 15:22 15:22 15:22 WBC 7.1 RBC 4.37 Hgb 13.4 Hct 40.5 MCV 92.7 MCH 30.7 MCHC 33.1 RDW Std Deviation 40.8 RDW Coeff of Shanda 12.0 Plt Count 289 MPV 9.5 Immature Gran % (Auto) 0.400 Neut % (Auto) 74.4 H Lymph % (Auto) 16.4 L [place] % (Auto) 7.8 Eos % (Auto) 0.3 Baso % (Auto) 0.7 Absolute Neuts (auto) 5.3 Absolute Lymphs (auto) 1.16 Nucleated RBC % 0 Sodium 138 Potassium 3.6 Chloride 106 Carbon Dioxide 31.0 Anion Gap 1 L BUN 11 Creatinine 0.68 Estim Creat Clear Calc 102.22 Est GFR (MDRD) Af Amer 138 Est GFR (MDRD) Non-Af 114 BUN/Creatinine Ratio 16.2 Glucose 113 H Calcium 8.7 Total Bilirubin 0.30 AST 81 H ALT 111 H Alkaline Phosphatase 69 Total Protein 7.4 Albumin 3.8 Globulin 3.6 Albumin/Globulin Ratio 1.1 Ethyl Alcohol < 3.0 Discharge Plan Triage Chief Complaint: Overdose ED Provider: Gabriel Zavala Dx/Rx/DC Orders Clinical Impression: Heroin overdose, Substance abuse Instructions: ED Opiate Abuse, ED Overdose, Opiate Prescriptions: No Action promethazine 25 mg tablet 25 mg PO Q4H PRN (Reason: nausea and vomiting) Qty: 20 0RF Primary Care Provider: [facility] Екатерина Gutierrez Referrals: [facility] [Non-Staff] - 3-5 Days [facility],Екатерина De La O [Primary Care Provider] - 3-5 Days Disposition Disposition: Home, Self Care
--- NOTE | 2022-08-25 15:27 | ED.RN ---
RN ENTERED PATIENTS ROOM AND INFORMED HER RN WILL BE DRAWING BLOOD. PATIENT ASKED WHAT LABS SHE WOULD BE DRAWING. RN STATES BLOOD COUNT, ELECTROLYTES AND ALCOHOL. PATIENT STATES I DON'T UNDERSTAND WHY YOU GUYS DON'T BELIEVE ME WHEN I SAY I HAVEN'T DRANK. RN STATES THERE ARE JUST BASIC LABS WE RUN ON PATIENTS WITH SUBSTANCE ABUSE. WHILE DRAWING BLOOD, PATIENT REQUESTED IV. RN STATES SHE WILL NOT BE GETTING AN IV AT THIS TIME. PATIENT STATES SHE WANTS ONE AND WANTS TO KNOW WHY SHE CANNOT HAVE ONE. RN STATES YOU ARE AN IV DRUG USER AND WILL NOT RECEIVE AN IV. PATIENTS STATES SHE WANTS IV FLUIDS. DR. HICKS NOTIFIED AND STATED PATIENT WILL NOT HAVE AN IV.
[2022-08-25 15:33] LABS: Absolute Lymphocyte Count 1.16 X10^3/uL (0.83-4.51); Absolute Neutrophil Count 5.3 X10^3/uL (2.0-7.7); Basophil# 0.05 X10^3/uL; Basophil% 0.7 % (0-1); Eosinophil# 0.02 X10^3/uL; Eosinophils% 0.3 % (0-5); Hematocrit 40.5 % (37-47); Hemoglobin 13.4 g/dL (12.0-15.0); Lymphocyte # 1.16 X10^3/ul (0.83-4.51); Lymphocyte % 16.4 % (19-41); Mean Corp Hgb Conc 33.1 g/dL (32-36); Mean Corpuscular Hgb 30.7 pg (27.0-32.0); Mean Corpuscular Volume 92.7 fL (81-99); Mean Platelet Vol. 9.5 fl (6.2-12.0); Monocyte# 0.55 X10^3/uL; Monocyte% 7.8 % (0-10); NRBC Flagged by Analyzer 0 % (0-5); Neutrophil # 5.28 X10^3/uL (2.7-7.7); Neutrophil % 74.4 % (47-70); Platelet Count 289 K/mm3 (150-450); RBC Distribution Width SD 40.8 fl (35.1-43.9); Red Blood Count 4.37 M/mm3 (4.2-5.4); White Blood Count 7.1 K/mm3 (4.4-11.0)
[2022-08-25 15:50] LABS: ALB/GLOB Ratio 1.1 RATIO (0.9-2.4); AST(SGOT) 81 U/L (15-37); Alanine Aminotransfer ALT/SGPT 111 U/L (13-56); Albumin, Serum 3.8 g/dL (3.2-5.0); Alkaline Phosphatase 69 U/L (45-117); Anion Gap 1 (5-15); BUN 11 mg/dL (7-18); BUN/Creat Ratio 16.2 RATIO (10-20); Calcium,Total 8.7 mg/dL (8.5-10.1); Chloride 106 mmol/L (98-107); Creatinine, Serum 0.68 mg/dL (0.55-1.02); EST Glomerular Filtration Rate 114 mL/min (>60); Est Glom Filt Rate - Afr Amer 138 mL/min (>60); Estimated Creatinine Clearance 102.22 ml/min; Globulin 3.6 g/dL (2.2-4.2); Glucose 113 mg/dL (74-106); Potassium 3.6 mmol/L (3.5-5.1); Protein, Total 7.4 g/dL (6.4-8.2); Sodium Level 138 mmol/L (136-145)
[2022-08-25 15:51] LABS: Alcohol, Blood (Medical)-Serum < 3.0 mg/dL
[2022-08-25 16:00] VITALS: PULSE 86; RESP 16; O2SAT 99
[2022-08-25 17:00] VITALS: PULSE 88
[2022-08-25 17:16] VITALS: BP 108/73; PULSE 66; RESP 15; O2SAT 97
== END 2022-08-25 17:17 | disposition home or self-care (01) ==
PROVIDERS: Emergency Provider Emergency Medicine; Visit Provider Emergency Medicine
DX: T40.1X4A Poisoning by heroin, undetermined, initial encounter (principal); F15.10 Other stimulant abuse, uncomplicated; F11.10 Opioid abuse, uncomplicated; F31.9 Bipolar disorder, unspecified; R06.02 Shortness of breath; H53.8 Other visual disturbances; F12.90 Cannabis use, unspecified, uncomplicated; F17.210 Nicotine dependence, cigarettes, uncomplicated
CPT/HCPCS: 36415; 80053; 82077; 85025; 99285

== ENCOUNTER 2022-09-01 19:03 | Emergency (ER) | payer MEDICAID, SELFPAY ==
[2022-09-01 19:03] VITALS: PULSE 74; RESP 17; TEMP 36.8; O2SAT 97
[2022-09-01 19:04] VITALS: BP 128/94; PULSE 74; RESP 15; TEMP 36.8; O2SAT 99; BMI 20.4
--- NOTE | 2022-09-01 21:16 | EX.ED.SAOD ---
HPI History of Present Illness Chief Complaint: Overdose Narrative Narrative: 21-year-old female thinks she may have overdosed on heroin or/and fentanyl. Her history and physical is limited mildly secondary to her drowsiness. According to EMS, she received a total of 6 of Narcan because she was found unresponsive. She does admit to injecting heroin which may have had fentanyl in it. She states that she is thirsty currently. She is unsure what time she injected. [facility] Medical History Anxiety Asthma Bipolar disorder Depression Desire for detoxification Drug abuse Hepatitis C Methamphetamine abuse Mild fentanyl abuse Opioid abuse Seizures Substance abuse Tobacco abuse Home Medications promethazine 25 mg tablet 25 mg PO Q4H PRN nausea and vomiting #20 tabs 07/08/22 [Rx Last Taken Unknown] Allergy/AdvReac Type Severity Reaction Status Date / Time almond [almonds] Allergy Anaphylaxis Verified 08/25/22 14:48 tree nut Allergy Anaphylaxis Verified 08/25/22 14:48 Family History Other Drug abuse Surgical History History of tonsillectomy Social History household members: significant other Smoking Status: Current every day smoker tobacco type: cigarettes alcohol intake: current alcohol intake frequency: a few times a week substance use type: marijuana ROS ROS ED ROS Narrative Constitutional: No fever, no chills. Thirsty. HEENT: No sore throat. No neck pain. No loss of vision. No rhinorrhea. Cardiovascular: No chest pain. No palpitations. No pedal edema. Respiratory: No cough, no shortness of breath. Abdominal: No abdominal pain. No nausea. No vomiting. Genitourinary: No dysuria. No hematuria. Musculoskeletal: No myalgias. No arthralgias. Neurologic: No headaches. No dizziness. No lightheadedness. Skin: No rash. No change in color. Psychiatric: No depression. No anxiety. EXAM Physical Exam Narrative Exam Narrative: Afebrile. Vital signs noted. HEENT: Normocephalic. Atraumatic. PERRL, EOMI. Neck soft and supple. No point tenderness or step off. Cardiovascular: Regular rate and rhythm. No murmurs, rubs, or gallops appreciated. Respiratory: No tachypnea. Lungs clear to auscultation bilaterally. Gastrointestinal: Abdomen soft, nontender, with normoactive bowel sounds. No rebound or guarding. Neurological: Awake. Intermittently drowsy. Alert. Nonfocal, nonlateralizing. Skin: No rash. Normal color. No pallor. Musculoskeletal: No pedal edema. Full range of motion extremities. Const Vital Signs: 09/01/22 19:04 09/01/22 19:03 09/01/22 21:38 Temperature 98.2 F 98.2 F Temperature Source Temporal Temporal Pulse Rate 74 74 Respiratory Rate 15 17 Blood Pressure 128/94 H Blood Pressure Mean 105 Pulse Ox 99 97 98 Oxygen Delivery Method Room Air Room Air Room Air 09/01/22 22:11 Temperature Temperature Source Pulse Rate Respiratory Rate Blood Pressure 117/89 H Blood Pressure Mean 98 Pulse Ox 98 Oxygen Delivery Method Room Air MDM MDM MDM Narrative Medical decision making narrative: I reviewed her prior outpatient records. She does have history of previous heroin overdose. This was last week, 7 days ago when she was at [facility] when she injected heroin and overdosed accidentally. Upon repeat examination at approximately 2130, she had been seen ambulating to the bathroom without difficulty. Additionally, earlier she was asking for Sprite to drink. She tolerated p.o. She has a normal SPO2 of 98% on room air. She was told to follow-up with her counselor at [facility] to avoid heroin abuse. This is the second time that she has overdosed in a week. Regardless, I feel she be discharged to follow-up. Return instructions to the emergency department were reviewed. Disposition is discharged home in stable condition. Discharge Plan Triage Chief Complaint: Overdose ED Provider: Juanjose Kenny Dx/Rx/DC Orders Clinical Impression: Heroin overdose, Substance abuse Instructions: ED Overdose, Opiate Prescriptions: No Action promethazine 25 mg tablet 25 mg PO Q4H PRN (Reason: nausea and vomiting) Qty: 20 0RF Primary Care Provider: [facility] Екатерина Gutierrez Referrals: [facility] Екатерина Gutierrez [Primary Care Provider] - As soon as possible Activity Restrictions/Additional Instructions: Follow-up with [facility] as soon as possible. Go tomorrow to your counselor. Disposition Disposition: Home, Self Care Discharge Date/Time: 09/01/22 22:13
[2022-09-01 21:38] VITALS: O2SAT 98
[2022-09-01 22:11] VITALS: BP 117/89; O2SAT 98
== END 2022-09-01 22:13 | disposition home or self-care (01) ==
PROVIDERS: Emergency Provider Emergency Medicine; Visit Provider Emergency Medicine
DX: T40.1X1A Poisoning by heroin, accidental (unintentional), initial encounter (principal); F15.10 Other stimulant abuse, uncomplicated; F11.10 Opioid abuse, uncomplicated; F17.210 Nicotine dependence, cigarettes, uncomplicated; F12.90 Cannabis use, unspecified, uncomplicated
CPT/HCPCS: 99285

== ENCOUNTER 2022-09-02 11:41 | Inpatient (IN) | payer MEDICAID, SELFPAY ==
[2022-09-02 11:42] VITALS: BP 109/86; PULSE 115; RESP 16; TEMP 36.6; O2SAT 98; BMI 21.9
--- NOTE | 2022-09-02 12:13 | ED.RN ---
PT AGITATED AND CURSING IN TRIAGE, DIFFICULT TO REDIRECT.
[2022-09-02 14:35] VITALS: BP 109/86; PULSE 72; RESP 18; TEMP 36.7; O2SAT 100
[2022-09-02 14:38] LABS: Absolute Lymphocyte Count 2.56 X10^3/uL (0.83-4.51); Absolute Neutrophil Count 2.6 X10^3/uL (2.0-7.7); Basophil# 0.04 X10^3/uL; Basophil% 0.7 % (0-1); Eosinophil# 0.12 X10^3/uL; Eosinophils% 2.1 % (0-5); Hematocrit 39.1 % (37-47); Hemoglobin 12.8 g/dL (12.0-15.0); Lymphocyte # 2.56 X10^3/ul (0.83-4.51); Lymphocyte % 45.1 % (19-41); Mean Corp Hgb Conc 32.7 g/dL (32-36); Mean Corpuscular Hgb 30.2 pg (27.0-32.0); Mean Corpuscular Volume 92.2 fL (81-99); Mean Platelet Vol. 9.8 fl (6.2-12.0); Monocyte# 0.38 X10^3/uL; Monocyte% 6.7 % (0-10); NRBC Flagged by Analyzer 0 % (0-5); Neutrophil # 2.55 X10^3/uL (2.7-7.7); Platelet Count 273 K/mm3 (150-450); RBC Distribution Width CV 11.9 % (11.6-14.6); Red Blood Count 4.24 M/mm3 (4.2-5.4); White Blood Count 5.7 K/mm3 (4.4-11.0)
--- NOTE | 2022-09-02 14:44 | EX.ED.SAOD ---
HPI History of Present Illness Chief Complaint: Substance Abuse Informant: patient Onset/Context/Timing Onset: Yesterday Context: Gradual Onset Timing: Continuous Quality: Shaky Location: Generalized. Worsened by: Nothing Relieved by: Nothing Associated Symptoms Associated Symptoms: Positive for vomiting*, diarrhea* and tremor; Negative for fever*, rash*, seizure, palpatations, change in mental status, trauma, suicidal ideation or homicidal ideation Narrative Narrative: Patient presents requesting detox from fentanyl and methamphetamines. Patient states her last use was yesterday when she overdosed and was brought to the emergency department. Patient states she has not used any since that time. Patient states that yesterday when she overdosed people did CPR on her chest and she now has some pain in her sternum. Patient denies any shortness of breath. Patient admits to some vomiting and diarrhea. Patient also admits to some tremors. Patient denies any seizures but has a history of a seizure disorder. Patient denies any suicidal or homicidal ideations. Patient denies any chance for . [facility] Medical History Anxiety Asthma Bipolar disorder Borderline personality disorder Depression Desire for detoxification Drug abuse Hepatitis C Methamphetamine abuse Mild fentanyl abuse Opioid abuse Seizures Substance abuse Tobacco abuse Allergy/AdvReac Type Severity Reaction Status Date / Time almond [almonds] Allergy Anaphylaxis Verified 09/02/22 11:44 tree nut Allergy Anaphylaxis Verified 09/02/22 11:44 Family History Other Drug abuse Surgical History History of tonsillectomy Social History household members: significant other Smoking Status: Current every day smoker tobacco type: cigarettes alcohol intake: current alcohol intake frequency: a few times a week substance use type: marijuana ROS ROS ED Constitutional Constitutional ED: Reports chills, fever(s) and subjective Eyes Eyes: Denies blurry vision or change in vision ENT ENT ED: Denies rhinorrhea or sore throat Cardiovascular Cardiovascular: Denies chest pain or palpitations Respiratory/Chest Respiratory/Chest: Denies cough or dyspnea Gastrointestinal Gastrointestinal: Denies nausea or vomiting Genitourinary Genitourinary ED: Denies dysuria or hematuria Musculoskeletal Musculoskeletal: Denies back pain or neck pain Integumentary Denies abscess or rash Neurologic Neurologic: Denies headache(s) or weakness Allergic/Immunologic Allergic/Immunologic ED: Denies mouth swelling or urticaria EXAM Physical Exam Const Vital Signs: 09/02/22 11:42 09/02/22 14:35 Temperature 97.8 F 98.1 F Temperature Source Temporal Temporal Pulse Rate 115 H 72 Respiratory Rate 16 18 Blood Pressure 109/86 H 109/86 H Blood Pressure Mean 93 93 Pulse Ox 98 100 Oxygen Delivery Method Room Air Room Air Positive well nourished and well developed General Appearance ED: well developed and NAD HEENT Reports moist mucous membranes Neck supple and no JVD Resp normal respiratory effort and clear to auscultation bilaterally Cardio regular rate, regular rhythm and no murmurs GI normal to inspection, nondistended, normoactive bowel sounds and non-tender Palpation: soft Extremity normal to inspection General Extremety ED: Negative for edema or tenderness General Extremity: Negative for edema Neuro oriented x3, CN's II-XII intact bilaterally and no sensory deficits noted Alvaro Coma Scale: document GCS findings Spontaneous Obeys Commands Oriented 15 Sensorium / Orientation: alert Speech: speech normal Motor Exam: strength 5/5 throughout Psych mental status grossly normal Skin no rashes or lesions noted MDM MDM MDM Narrative Medical decision making narrative: Basic labs were obtained. CBC was obtained and was reviewed. This is within normal limits. Comprehensive metabolic profile was obtained. Serum hCG was obtained. Serum alcohol level was obtained. Urine tox screen was obtained. Case was discussed with the hospitalist. He will admit the patient to his service. Patient understood and was agreeable with the plan. All questions were answered. Lab Data Attestation: I reviewed the patient's lab results. Labs: Laboratory Results - last 24 hr 09/02/22 09/02/22 13:58 13:58 WBC 5.7 RBC 4.24 Hgb 12.8 Hct 39.1 MCV 92.2 MCH 30.2 MCHC 32.7 RDW Std Deviation 40.0 RDW Coeff of Shanda 11.9 Plt Count 273 MPV 9.8 Immature Gran % (Auto) 0.400 Neut % (Auto) 45.0 L Lymph % (Auto) 45.1 H [place] % (Auto) 6.7 Eos % (Auto) 2.1 Baso % (Auto) 0.7 Absolute Neuts (auto) 2.6 Absolute Lymphs (auto) 2.56 Nucleated RBC % 0 Ur Drug Screen Comment Discharge Plan Triage Chief Complaint: Substance Abuse ED Provider: Gabriel Zavala Dx/Rx/DC Orders Clinical Impression: Opiate withdrawal, Substance abuse Primary Care Provider: [facility] Екатерина Gutierrez Disposition Disposition: Acute Care Hospital [facility]
[2022-09-02 14:46] VITALS: BMI 22.4
--- NOTE | 2022-09-02 14:46 | NURSING ---
313 OPIATE DEPENDENCE, OPIATE WITHDRAWAL SKY
[2022-09-02 14:51] LABS: Alcohol, Blood (Medical)-Serum < 3.0 mg/dL
[2022-09-02 14:52] LABS: Amphetamine Urine VISTA POSITIVE (<1000 ng/mL); Barbiturate Urine VISTA NEGATIVE (< 200 ng/mL); Benzodiazepine Urine VISTA NEGATIVE (< 200 ng/mL); Cocaine Urine VISTA NEGATIVE (< 300 ng/mL); Ecstacy Urine VISTA POSITIVE (< 500 ng/mL); Methadone Urine VISTA NEGATIVE (< 300 ng/mL); PCP Urine VISTA NEGATIVE (< 25 ng/mL); THC Urine VISTA POSITIVE (< 50 ng/mL); Vista UDS pH Range 6
[2022-09-02 14:54] LABS: Internal QC Validated? YES +Cl - CLEAR BKGD; Pregnancy, Serum, hCG Quali. NEGATIVE Negative
[2022-09-02 14:56] LABS: ALB/GLOB Ratio 0.8 RATIO (0.9-2.4); AST(SGOT) 117 U/L (15-37); Alanine Aminotransfer ALT/SGPT 160 U/L (13-56); Albumin, Serum 3.1 g/dL (3.2-5.0); Alkaline Phosphatase 77 U/L (45-117); Anion Gap 4 (5-15); BUN 8 mg/dL (7-18); BUN/Creat Ratio 12.6 RATIO (10-20); Calcium,Total 8.9 mg/dL (8.5-10.1); Chloride 103 mmol/L (98-107); Creatinine, Serum 0.63 mg/dL (0.55-1.02); EST Glomerular Filtration Rate 124 mL/min (>60); Est Glom Filt Rate - Afr Amer 150 mL/min (>60); Estimated Creatinine Clearance 110.78 ml/min; Globulin 3.8 g/dL (2.2-4.2); Glucose 102 mg/dL (74-106); Potassium 3.4 mmol/L (3.5-5.1); Protein, Total 6.9 g/dL (6.4-8.2); Sodium Level 138 mmol/L (136-145)
[2022-09-02 15:00] VITALS: RESP 18
--- NOTE | 2022-09-02 15:02 | CM.ED ---
LAYLA Note LAYLA called Oli and updated her that patient is being admitted for detox for meth and fentanyl. Oli is familiar with patient. No further information needed at this time. Lorie [place]
[2022-09-02 15:22] VITALS: BMI 22.4
[2022-09-02 15:24] VITALS: BP 118/82; PULSE 101; RESP 18; TEMP 36.6; O2SAT 100
--- NOTE | 2022-09-02 16:46 | HP.PCM.HOS_ITS ---
HPI - General General Date of Admission: 09/02/22 Date of Service: 09/02/22 Chief Complaint: Acute opiate withdrawal, requesting services for opiate detox HPI Narrative MELLISA TORRES, is a 21 F who presents to the emergency room at [facility] requesting services for opiate detox, she had been seen in the emergency room yesterday for an opiate overdose, she had CPR briefly administered to her as an outpatient, she complains of some chest discomfort today but comes in requesting services for opiate detox. Patient last use yesterday, she complains of feeling nervous and tremorous, she also complains of nausea. Labs obtained in the emergency room showed a CBC which was unremarkable, Katelin panel showed a slightly low potassium at 3.4, AST was elevated at 117, ALT was 160, and talk screen was positive for amphetamines, MDMA, and cannabinoids. Patient will be admitted to [place] [id number], orders were entered using the opiate detox order set, she will be seen by addiction social sciences lecturer tomorrow. [facility] Medical History Anxiety Asthma Bipolar disorder Borderline personality disorder Depression Desire for detoxification Drug abuse Hepatitis C Methamphetamine abuse Mild fentanyl abuse Opioid abuse Seizures Substance abuse Tobacco abuse Home Medications NK 09/02/22 [History Last Taken Unknown] Allergy/AdvReac Type Severity Reaction Status Date / Time almond [almonds] Allergy Anaphylaxis Verified 09/02/22 11:44 tree nut Allergy Anaphylaxis Verified 09/02/22 11:44 Family History Other Drug abuse Surgical History History of tonsillectomy Social History household members: significant other Smoking Status: Current every day smoker tobacco type: cigarettes alcohol intake: current alcohol intake frequency: a few times a week substance use type: marijuana ROS Constitutional Constitutional: Denies anorexia, change in weight, fever(s), night sweats or weakness Eyes Eyes: Denies blurry vision, change in vision, discharge from eye(s) or eye pain Cardiovascular Cardiovascular: Denies chest pain, claudication, edema or palpitations Respiratory/Chest Respiratory/Chest: Denies cough, hemoptysis, productive cough, shortness of breath at rest or shortness of breath with exertion Gastrointestinal Gastrointestinal: Denies abdominal pain, constipation, diarrhea, hematemesis, hematochezia, melena, nausea or vomiting Genitourinary Genitourinary: Denies dysuria, hematuria, nocturia, urinary frequency, urinary hesitancy, urinary incontinence or urinary urgency Musculoskeletal Musculoskeletal: Denies back pain, joint pain, joint stiffness, joint swelling, myalgias or neck pain Neurologic Neurologic: Denies abnormal gait, abnormal speech, confusion, dizziness, focal weakness, headache(s), loss of vision, numbness, other visual disturbances, paresthesias, syncope or tingling Psychiatric Psychiatric: Reports anxiety and irritability; Denies cognitive impairment, depression, mood swings or suicidal ideation Endocrine Endocrinology: Denies change in body appearance, cold intolerance, excessive sweating, heat intolerance, polydipsia or polyuria Hematologic/Lymphatic Hematologic/Lymphatic: Denies none, anemia, easy bleeding, easy bruising or lymphadenopathy Allergic/Immunologic Allergic/Immunologic: Denies rhinitis, urticaria, eczemia or asthma Vital Signs Vital Signs Vital Signs: 09/02/22 11:42 09/02/22 14:35 09/02/22 15:00 Temperature 97.8 F 98.1 F Temperature Source Temporal Temporal Pulse Rate 115 H 72 Respiratory Rate 16 18 18 Blood Pressure 109/86 H 109/86 H Blood Pressure Mean 93 93 Blood Pressure Source Blood Pressure Position Blood Pressure Location Pulse Ox 98 100 Oxygen Delivery Method Room Air Room Air 09/02/22 15:24 Temperature 97.9 F Temperature Source Temporal Pulse Rate 101 H Respiratory Rate 18 Blood Pressure 118/82 H Blood Pressure Mean 94 Blood Pressure Source Monitor Blood Pressure Position Semi-Fowlers Blood Pressure Location Right Arm Pulse Ox 100 Oxygen Delivery Method Room Air Weight Weight: 55.52 kg Body Mass Index (BMI) 22.4 Physical Exam Const alert, oriented x3 and no apparent distress General Appearance: cooperative, well kempt and well developed Orientation / Consciousness: awake, oriented to person, oriented to place and oriented to time HEENT normocephalic and moist oral mucous membranes Eyes PERRL, EOMs intact bilaterally and conjunctivae normal Neck supple, no JVD, thyroid normal and no carotid bruits General: trachea midline Resp normal respiratory effort and clear to auscultation bilaterally Auscultation: Negative for rales, rhonchi or wheezes Cardio regular rate, regular rhythm, no murmurs, no rub and no gallops GI normal to inspection, nondistended, normoactive bowel sounds, soft to palpation, non-tender and non-distended Extremity no clubbing, cyanosis or edema Skin no rashes or lesions noted General Skin Exam: no breakdown Neuro oriented x3, CN's II-XII intact bilaterally, no focal motor deficits and no sensory deficits noted Sensorium / Orientation: awake and alert Speech: speech normal Psych affect normal Results Lab / Micro Data Result Diagrams: 09/02/22 13:58 09/02/22 13:58 Labs: Laboratory Results - last 24 hr 09/02/22 13:58: WBC 5.7, RBC 4.24, Hgb 12.8, Hct 39.1, MCV 92.2, MCH 30.2, MCHC 32.7, RDW Std Deviation 40.0, RDW Coeff of Shanda 11.9, Plt Count 273, MPV 9.8, Immature Gran % (Auto) 0.400, Neut % (Auto) 45.0 L, Lymph % (Auto) 45.1 H, [place] % (Auto) 6.7, Eos % (Auto) 2.1, Baso % (Auto) 0.7, Absolute Neuts (auto) 2.6, Absolute Lymphs (auto) 2.56, Nucleated RBC % 0 09/02/22 13:58: Sodium 138, Potassium 3.4 L, Chloride 103, Carbon Dioxide 31.0, Anion Gap 4 L, BUN 8, Creatinine 0.63, Estim Creat Clear Calc 110.78, Est GFR (MDRD) Af Amer 150, Est GFR (MDRD) Non-Af 124, BUN/Creatinine Ratio 12.6, Glucose 102, Calcium 8.9, Total Bilirubin 0.20, AST 117 H, ALT 160 H, Alkaline Phosphatase 77, Total Protein 6.9, Albumin 3.1 L, Globulin 3.8, Albumin/Globulin Ratio 0.8 L 09/02/22 13:58: Ethyl Alcohol < 3.0 09/02/22 13:58: Urine Opiates Screen NEGATIVE, Urine Methadone Screen NEGATIVE, Ur Barbiturates Screen NEGATIVE, Ur Phencyclidine Scrn NEGATIVE, Ur Amphetamines Screen POSITIVE H, MDMA (Ecstasy) Screen POSITIVE H, U Benzodiazepines Scrn NEGATIVE, Urine Cocaine Screen NEGATIVE, U Cannabinoids Screen POSITIVE H, Ur Drug Screen Comment 09/02/22 13:58: Serum , Qual NEGATIVE Assessment & Plan Assessment/Plan (1) Opiate withdrawal: PLAN: Plan 1. Acute opiate withdrawal-patient will be admitted to [facility], orders were entered using the opiate withdrawal order set, she will be seen by addiction social sciences lecturer tomorrow. #2 polysubstance abuse-complicates care, management, recovery, and prognosis #3 chronic heroin addiction-again she will be seen by addiction social sciences lecturer, orders were entered using the opiate withdrawal order set #4 hypokalemia-this is minor, patient was given 1 dose of oral potassium chloride Total clinical time spent by myself addressing the patient's medical issues, reviewing the data, and collaborating with the patient's care team: 55 minutes Charges/Coding Visit Charges Inpatient E&M: 96044 Init Hosp L2
[2022-09-02 20:22] VITALS: BP 112/74; PULSE 100; RESP 16; TEMP 36.7; O2SAT 99
[2022-09-02] MEDS: Potassium Chloride Oral Tablet 20 MEQ 40 MEQ PO (20:38)
[2022-09-02] MEDS: traZODone 100 MG Tablet PO (20:38)
[2022-09-02] MEDS: Dicyclomine 10 MG Capsule 20 MG PO (20:39)
[2022-09-03 02:42] VITALS: BP 105/67; PULSE 106; RESP 18; TEMP 36.4; O2SAT 97
[2022-09-03] MEDS: Dicyclomine 10 MG Capsule 20 MG PO (02:52)
[2022-09-03] MEDS: Ibuprofen 600 MG Tablet PO ×2 (02:52→16:14)
[2022-09-03] MEDS: Gabapentin 300 MG Capsule PO ×2 (02:53→10:51)
[2022-09-03] MEDS: Ondansetron 8 MG Tablet PO (02:53)
[2022-09-03] MEDS: Methocarbamol 750 MG Tablet 1500 MG PO ×2 (02:53→10:51)
[2022-09-03 08:04] VITALS: BP 100/70; PULSE 93; RESP 16; TEMP 37.2; O2SAT 97
--- NOTE | 2022-09-03 10:41 | PCM.PN.HOSP ---
Subjective Subjective No issues overnight, Cina score of 0 Objective Data Objective Data Vital Signs: Vital Signs Temp Pulse Resp BP Pulse Ox O2 Del Method 99 F 93 16 100/70 97 Room Air 09/03/22 08:04 09/03/22 08:04 09/03/22 08:04 09/03/22 08:04 09/03/22 08:04 09/03/22 08:04 Oxygen Delivery Method Room Air Weight: 122 lb 6.4 oz Body Mass Index (BMI) 22.4 Lab / Micro Data Result Diagrams: 09/02/22 13:58 09/02/22 13:58 Labs: Laboratory Results - last 24 hr 09/02/22 13:58: WBC 5.7, RBC 4.24, Hgb 12.8, Hct 39.1, MCV 92.2, MCH 30.2, MCHC 32.7, RDW Std Deviation 40.0, RDW Coeff of Shanda 11.9, Plt Count 273, MPV 9.8, Immature Gran % (Auto) 0.400, Neut % (Auto) 45.0 L, Lymph % (Auto) 45.1 H, [place] % (Auto) 6.7, Eos % (Auto) 2.1, Baso % (Auto) 0.7, Absolute Neuts (auto) 2.6, Absolute Lymphs (auto) 2.56, Nucleated RBC % 0 09/02/22 13:58: Sodium 138, Potassium 3.4 L, Chloride 103, Carbon Dioxide 31.0, Anion Gap 4 L, BUN 8, Creatinine 0.63, Estim Creat Clear Calc 110.78, Est GFR (MDRD) Af Amer 150, Est GFR (MDRD) Non-Af 124, BUN/Creatinine Ratio 12.6, Glucose 102, Calcium 8.9, Total Bilirubin 0.20, AST 117 H, ALT 160 H, Alkaline Phosphatase 77, Total Protein 6.9, Albumin 3.1 L, Globulin 3.8, Albumin/Globulin Ratio 0.8 L 09/02/22 13:58: Ethyl Alcohol < 3.0 09/02/22 13:58: Urine Opiates Screen NEGATIVE, Urine Methadone Screen NEGATIVE, Ur Barbiturates Screen NEGATIVE, Ur Phencyclidine Scrn NEGATIVE, Ur Amphetamines Screen POSITIVE H, MDMA (Ecstasy) Screen POSITIVE H, U Benzodiazepines Scrn NEGATIVE, Urine Cocaine Screen NEGATIVE, U Cannabinoids Screen POSITIVE H, Ur Drug Screen Comment 09/02/22 13:58: Serum , Qual NEGATIVE Physical Exam Narrative General: Alert, Oriented x3, Cooperative, No apparent distress HEENT: Atraumatic, PERRLA, EOMI, Normocephalic Oral: Moist Mucosa Neck: Supple, No JVD Lungs: Clear to auscultation, Normal air movement, No rhonchi, No wheeze, No rales Cardiovascular: Regular rate, Regular Rhythm, Normal S1, Normal S2, No murmurs Abdomen: Soft, Non Tender, Non-Distended, No Hepato-splenomegaly Extremities: No edema, Capillary Refill Less than 3 Seconds Skin: No rashes, No breakdown Musculoskeletal: No Tenderness to Palpation of Joints or Extremities Neurological: Cranial nerves II-XII grossly intact, Motor Exam 5/5 strength throughout, Sensory exam intact to light touch and pain Psych/Mental Status: Flat affect, restless, anxious Assessment & Plan Assessment/Plan (1) Opiate withdrawal: PLAN: Plan 1. Acute opiate withdrawal/polysubstance abuse/elevated LFTs ? We will continue with the opiate withdrawal protocol ? Discussed with her that her options are either AMA or outpatient rehab with [facility] or inpatient rehab ? She has been refusing her Subutex taper, and she does lack some insight into her disease process. She made an off the cuff statement about how she is over dosed multiple times but this was the first time where she almost ? We will check an HIV as well as hepatitis panel DVT: Ambulation Charges/Coding Visit Charges Inpatient E&M: 84788 Subs Hosp L2
[2022-09-03] MEDS: FLU VACC QS2022-23(6MOS UP)/PF 60 MCG/0.5 ML SYRINGE IM (10:45)
[2022-09-03 11:03] VITALS: BP 97/63; PULSE 103; RESP 16; TEMP 36.4; O2SAT 96
[2022-09-03 11:43] LABS: HIV - WCH Non-Reactive (Nonreactive)
[2022-09-03 14:14] LABS: Bacteria 0 SEEN /hpf (None Seen); Mucous, Urine 0 SEEN /hpf (<or=2+); Red Blood Cells-Urine 0 SEEN /hpf (0-5)
[2022-09-03 14:16] LABS: Color, Urine Yellow (Yellow); Glucose, Dipstick Normal (Normal); Ketone-Dipstick Negative (Negative); Leukocyte Esterase-Dipstick Negative /ul (Negative); Nitrite-Dipstick Negative (Negative); Occult Blood-Urine Negative /ul (Negative); Protein-Dipstick Negative (Negative); Urine Bilirubin Dipstick Negative (Negative); Urine Clarity Clear (Clear); Urine Urobilinogen Normal (Normal)
[2022-09-03 14:28] LABS: Squamous Epithelial Cells - UA 5-10 SEEN /hpf (5-10); White Blood Cells 0-5 SEEN /hpf (0-5)
--- NOTE | 2022-09-03 14:29 | CHAPLAIN ---
Type of Pastoral Visit _x__ Initial Visit ___ Follow-up Visit ___ On-call Visit ___ General Patient Visit ___ Spiritual Assessment ___ Family Conference ___ Bereavement ___ Rapid Response ___ Code Blue ___ Other (describe below) Pastoral Care Referral From _x__ Patient ___ Family ___ Nurse ___ Physician ___ Avionics Integration Engineer ___ Customer Service Sales Associate ___ Other (describe below) Sacrament/Intervention _x__ Active listening ___ Anointing ___ Taoism ___ Bereavement ___ Communion _x__ Katya exploration ___ _x__ Life review _x__ Prayer ___ Reconciliation ___ Sacrament of Sick _x__ Supportive presence ___ Wedding ___ Other (describe below) Pastoral Comments patient was welcoming and willing to have bobbin washer talk with her; pt stated that she likes rosaries in order to feel closer to God; pt is very talkative and goes from topic to topic; pt mostly talks about her overdoses and her many friends that have from drugs; pt has ideas about criminal activity that have happened to some of her friends; pt states that family is not helpful to her in the current situation she is in; when trying to address and share ideas with the patient she gives quick answers and goes off into ramblings; pt is welcoming of presence and prayer for support; while this visit occurred the lunch tray arrived and patient quickly devoured her food on tray; prayer given; as patient had asked for a Bible, one was given to her at the end of the visit
[2022-09-03 16:10] VITALS: BP 121/70; PULSE 89; RESP 16; TEMP 36.4; O2SAT 92
[2022-09-03] MEDS: hydrOXYzine PAM 25 MG Capsule 50 MG PO (16:14)
[2022-09-03 19:57] VITALS: BP 92/65; PULSE 91; RESP 12; TEMP 37.3; O2SAT 98
[2022-09-04 02:16] VITALS: BP 96/80; PULSE 116; RESP 18; TEMP 36.7; O2SAT 99
[2022-09-04] MEDS: Dicyclomine 10 MG Capsule 20 MG PO (02:35)
[2022-09-04] MEDS: Methocarbamol 750 MG Tablet 1500 MG PO ×2 (02:35→21:33)
[2022-09-04] MEDS: hydrOXYzine PAM 25 MG Capsule 50 MG PO ×2 (02:35→12:50)
[2022-09-04] MEDS: Ondansetron 8 MG Tablet PO ×3 (02:35→17:48)
[2022-09-04] MEDS: Buprenorphine HCl 2 MG TAB.SUBL 4 MG SL ×2 (02:35→09:55)
[2022-09-04 08:03] VITALS: BP 92/64; PULSE 105; RESP 16; TEMP 36.6; O2SAT 98
--- NOTE | 2022-09-04 09:47 | PN.HOSP_ITS ---
Subjective Subjective No issues overnight, started on the Subutex. Cina score of 3 this morning Objective Data Objective Data Vital Signs: Vital Signs Temp Pulse Resp BP Pulse Ox O2 Del Method 97.9 F 105 H 16 92/64 98 Room Air 09/04/22 08:03 09/04/22 08:03 09/04/22 08:03 09/04/22 08:03 09/04/22 08:03 09/04/22 08:03 Oxygen Delivery Method Room Air Weight: 122 lb 6.4 oz Body Mass Index (BMI) 22.4 Lab / Micro Data Result Diagrams: 09/02/22 13:58 09/02/22 13:58 Labs: Laboratory Results - last 24 hr 09/02/22 13:58: HIV 1&2 Antibody Non-Reactive 09/03/22 14:10: Urine Color Yellow, Urine Clarity Clear, Urine pH 6.0, Ur Specific [place] 1.020, Urine Protein Negative, Urine Glucose (UA) Normal, Urine Ketones Negative, Urine Occult Blood Negative, Urine Nitrite Negative, Urine Bilirubin Negative, Urine Urobilinogen Normal, Ur Leukocyte Esterase Negative, Urine RBC 0 SEEN, Urine WBC 0-5 SEEN, Ur Squamous Epith Cells 5-10 SEEN, Urine Bacteria 0 SEEN, Urine Mucus 0 SEEN Physical Exam Narrative General: Alert, Oriented x3, Cooperative, No apparent distress HEENT: Atraumatic, PERRLA, EOMI, Normocephalic Oral: Moist Mucosa Neck: Supple, No JVD Lungs: Clear to auscultation, Normal air movement, No rhonchi, No wheeze, No rales Cardiovascular: Regular rate, Regular Rhythm, Normal S1, Normal S2, No murmurs Abdomen: Soft, Non Tender, Non-Distended, No Hepato-splenomegaly Extremities: No edema, Capillary Refill Less than 3 Seconds Skin: No rashes, No breakdown Musculoskeletal: No Tenderness to Palpation of Joints or Extremities Neurological: Cranial nerves II-XII grossly intact, Motor Exam 5/5 strength throughout, Sensory exam intact to light touch and pain Psych/Mental Status: Flat affect, restless, anxious Assessment & Plan Assessment/Plan (1) Opiate withdrawal: PLAN: Plan 1. Acute opiate withdrawal/polysubstance abuse/elevated LFTs ? We will continue with the opiate withdrawal protocol ? Discussed with her that her options are either AMA or outpatient rehab with [facility] or inpatient rehab ? She does lack some insight into her disease process. She made an off the cuff statement about how she is over dosed multiple times but this was the first time where she almost ? HIV is nonreactive, hepatitis panel is pending DVT: Ambulation Charges/Coding Visit Charges Inpatient E&M: 89038 Subs Hosp L2
--- NOTE | 2022-09-04 10:13 | ADDICTION ---
This worker attempted to meet with patient for addiction assessments and screening. 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 due to using drugs inside of the building. She was very animated with her body language, continued to yell, and told this worker to leave her room. She discussed a suicide pact she had with her best friend. Crisis team was called.
--- NOTE | 2022-09-04 10:21 | NURSING ---
pt stuffing toilet with tp all the way to top. and throwing away dishes.
[2022-09-04 12:38] LABS: Syphilis Antibodies Reactive
--- NOTE | 2022-09-04 12:44 | EKG12_ITS ---
Test Reason : Blood Pressure : / mmHG Vent. Rate : 094 BPM Atrial Rate : 094 BPM P-R Int : 132 ms QRS Dur : 082 ms QT Int : 328 ms P-R-T Axes : 037 051 030 degrees QTc Int : 410 ms Normal sinus rhythm Normal ECG When compared with ECG of 20-MAR-2020 23:23, Nonspecific T wave abnormality has replaced inverted T waves in Inferior leads Confirmed by KATIE CUEVAS, GLADYS ([id number]), editor continuity and script GLO VARELA ([id number]) on 09/08/2022 11:36:19 AM Referred By: ASHELY Confirmed By:GLADYS WILSON MD
[2022-09-04] MEDS: cloNIDine HCl 0.1 MG Tablet PO ×2 (12:50→21:33)
[2022-09-04 13:05] VITALS: BP 125/78; PULSE 119; RESP 18; TEMP 36.9; O2SAT 94
--- NOTE | 2022-09-04 14:15 | CASEMGMT ---
Addendum entered by Keshia Pandey 09/04/22 15:26: Social Work SW faxed requested clinicals to crisis. Phone call to Heaven at Crisis who states [facility] has a bed available in their dual diagnosis unit and referral has been sent. Crisis to call [facility] when accepting facility is secured. Nursing updated. GIFTY Ellis Original Note: Social Work SW placed call to Crisis and spoke with Heaven who states pt does need psychiatric placement and she will work on getting pt placed at a dual diagnosis facility. Pt will need a covid test, EKG and medical clearance. Heaven states she has [facility] phone number and will contact the nursing unit when a facility is found. Bedside Nurse updated who states she will contact physician. GIFTY Ellis
[2022-09-04] MEDS: Buprenorphine HCl 2 MG TAB.SUBL SL (17:46)
[2022-09-04 18:00] VITALS: BP 100/64; PULSE 102; RESP 16; TEMP 37.1; O2SAT 97
[2022-09-04 21:22] VITALS: BP 105/60; PULSE 105; RESP 16; TEMP 36.9; O2SAT 97
[2022-09-04] MEDS: Ibuprofen 600 MG Tablet PO (21:33)
[2022-09-05] MEDS: Gabapentin 300 MG Capsule PO ×2 (01:21→09:28)
[2022-09-05] MEDS: traZODone 100 MG Tablet PO (01:21)
[2022-09-05] MEDS: Buprenorphine HCl 2 MG TAB.SUBL SL (01:58)
[2022-09-05 03:40] VITALS: BP 95/50; PULSE 85; RESP 16; TEMP 36.2; O2SAT 97
[2022-09-05 08:08] LABS: CPK Total, Creatine Kinase 32 U/L (26-192)
[2022-09-05 09:10] VITALS: BP 101/67; PULSE 98; RESP 20; TEMP 37.1; O2SAT 98
[2022-09-05 09:15] VITALS: PULSE 80
[2022-09-05] MEDS: Ibuprofen 600 MG Tablet PO (09:28)
[2022-09-05] MEDS: Dicyclomine 10 MG Capsule 20 MG PO (09:28)
--- NOTE | 2022-09-05 09:46 | PCM.DC ---
Discharge Instructions Diet Discharge Diet: No restrictions Activity Discharge Activity: Return to Normal Activity Follow Up Care Test Results: Test results from this visit will be discussed in further detail at your follow-up appointment, if applicable. Discharge Plan Admission Admit Date/Time: 09/02/22 14:40 Attending Provider: Braeden Rodriguez Primary Care Provider: [facility] Екатерина Gutierrez Consulting Providers: Gerson Melgar Discharge Orders/Prescriptions Prescriptions: No Action NK [facility] - Disposition Disposition (needs filled in before D/C Order can be placed): Psychiatric Hospital or Unit
--- NOTE | 2022-09-05 10:07 | DS.PCM_ITS ---
Providers Date of Admission: 09/02/22 Primary Care Physician: Екатерина [facility] Reason For Visit: ACUTE OPIATE WITHDRAWAL Diagnosis Discharge Diagnosis (1) Opiate withdrawal: Status: Acute Code(s): F11.93 - Opioid use, unspecified with withdrawal Plan 1. Acute opiate withdrawal/polysubstance abuse/elevated LFTs ? We will continue with the opiate withdrawal protocol ? Discussed with her that her options are either AMA or outpatient rehab with [facility] or inpatient rehab ? She does lack some insight into her disease process. She made an off the cuff statement about how she is over dosed multiple times but this was the first time where she almost ? HIV is nonreactive, hepatitis panel is pending DVT: Ambulation Medications at Discharge Home Medications NK 09/02/22 Hospital Course Operations None Procedures None Summary of Care Provided Minutes Spent on Discharge: 43 Hospital Course: Per HPI: MELLISA TORRES, is a 21 F who presents to the emergency room at [facility] requesting services for opiate detox, she had been seen in the emergency room yesterday for an opiate overdose, she had CPR briefly administered to her as an outpatient, she complains of some chest discomfort today but comes in requesting services for opiate detox.? Patient last use yesterday, she complains of feeling nervous and tremorous, she also complains of nausea.? Labs obtained in the emergency room showed a CBC which was unremarkable, Katelin panel showed a slightly low potassium at 3.4, AST was elevated at 117, ALT was 160, and talk screen was positive for amphetamines, MDMA, and cannabinoids. Patient will be admitted to [facility], orders were entered using the opiate detox order set, she will be seen by addiction dialysis social worker tomorrow. Hospital Course: 1.? Acute opiate withdrawal/polysubstance abuse/elevated 13 female presented to the hospital requesting opiate detox after having an overdose arrest requiring CPR. She has extremely poor insight and has very deranged behavior while in the hospital. She essentially has normalized overdosing as she states that she had overdosed before but this was the first time that she had almost . She is also had syphilis multiple times and she continues to have intercourse with people who are known to have syphilis. Talking with her PCP, she routinely misses outpatient visits and they have had to start the treatment for syphilis over because she misses the weekly appointments. Crisis was involved secondary to her poor insight and her inability to comprehend her own healthcare and the fact that this was putting her in danger as she did not seem to understand the dangers of syphilis as well as her opiate overdose issues. This morning I discussed with her that we will be sending her to a facility to a obtain both behavioral and mental health and she immediately started screaming and pacing around the room and trying to throw things because the word mental health was mentioned. Of note, a syphilis test is pending with a reflexive RPR and this will need to be monitored as an outpatient and reported to the [place] [facility] department if it significantly elevated. I discussed her case with [facility], and they felt that she is stable from detox standpoint to go to a mental health facility for further assistance. She is medically cleared for discharge, I do anticipate that she will need extensive and potentially prolonged mental health assistance given some of the community reports from her PCP on her erratic behavior as an outpatient. Physical Exam Narrative General: Alert, Oriented x3, not cooperative aggravated agitated HEENT: Atraumatic, PERRLA, EOMI, Normocephalic Oral: Moist Mucosa Neck: Supple, No JVD Lungs: Clear to auscultation, Normal air movement, No rhonchi, No wheeze, No rales Cardiovascular: Regular rate, Regular Rhythm, Normal S1, Normal S2, No murmurs Abdomen: Soft, Non Tender, Non-Distended, No Hepato-splenomegaly Extremities: No edema, Capillary Refill Less than 3 Seconds Skin: No rashes, No breakdown Musculoskeletal: No Tenderness to Palpation of Joints or Extremities Neurological: Moves all extremities but will not cooperate with an in-depth exam Psych/Mental Status: Poor insight into her own healthcare and her mental health, agitated Weight / BMI Weight Weight: 122 lb 6.4 oz Body Mass Index (BMI) 22.4 ABG / Lab / Microbiology Data Result Diagrams: 09/02/22 13:58 09/02/22 13:58 Laboratory: Laboratory Results - last 24 hr 09/04/22 11:06: Syphilis Total Ab Reactive 09/05/22 06:58: Total Creatine Kinase 32 Microbiology: Microbiology 09/04/22 12:47 Nasal Secretion SARS-CoV-2 Antigen (Rapid) - Final D/C Instructions Discharge Diet: No restrictions Meaningful Use Info Meaningful Use Diagnoses (Choose all that apply): None applicable Discharge Plan Admission Admit Date/Time: 09/02/22 14:40 Attending Provider: Braeden Rodriguez Primary Care Provider: [facility] Екатерина Gutierrez Consulting Providers: Gerson Melgar Discharge Orders/Prescriptions Prescriptions: No Action NK Referrals / Follow Up: [facility],Екатерина De [place] O [Primary Care Provider] - Disposition Disposition (needs filled in before D/C Order can be placed): Psychiatric Hospital or Unit Charges/Coding Visit Charges Inpatient E&M: 79185 Disch Hosp >30min
--- NOTE | 2022-09-05 10:47 | PCA ---
Pt has been accepted to [facility] accepting physician is Dr. Rodriguez, room 100A
--- NOTE | 2022-09-05 11:29 | NURSING ---
Report called to Opal at [facility]: [phone]
[2022-09-05] MEDS: hydrOXYzine PAM 25 MG Capsule 50 MG PO (12:09)
[2022-09-05 13:37] VITALS: BP 88/51; PULSE 92; RESP 16; TEMP 36.8; O2SAT 95
== END 2022-09-05 14:16 | DRG 773 ==
LOC: ED 13:44 → MS3 14:49
PROVIDERS: Hospitalist; Admitting Provider Internal Medicine; Emergency Provider Emergency Medicine; Visit Provider Family Medicine
DX: F11.23 Opioid dependence with withdrawal (principal); F19.19 Other psychoactive substance abuse with unspecified psychoactive substance-induced disorder; E87.6 Hypokalemia; G40.909 Epilepsy, unspecified, not intractable, without status epilepticus; F15.10 Other stimulant abuse, uncomplicated; T40.1X1A Poisoning by heroin, accidental (unintentional), initial encounter; F17.210 Nicotine dependence, cigarettes, uncomplicated; F12.90 Cannabis use, unspecified, uncomplicated
CPT/HCPCS: 36415; 80053; 80074; 80307; 81001; 82077; 82550; 84703; 85025; 86703; 86780; 87426; 93005; 99283; 99285; 99406; 90686

== ENCOUNTER → 2023-02-23 | Outpatient (CLI) | payer MEDICAID, SELFPAY ==
--- NOTE | 2023-02-23 09:41 | US_ITS ---
STUDY: ULTRASOUND OF THE FEMALE PELVIS - COMPLETE REASON FOR EXAM: Female, 22 years old. IRREGULAR MENSTRUATION LMP: January 17, 2023. Negative hCG TECHNIQUE: Transvaginal TECHNICAL QUALITY: Adequate. COMPARISON: None. FINDINGS: The uterus is retroflexed and is in a midline position. The uterus measures 7.4 cm x 4.8 cm x 4.3 cm. Normal uterine cervix. The endometrium measures 12.3 mm in thickness, and is hyperechoic. There is no demonstrated endometrial mass. There is no demonstrated myometrial mass. I.U.D. - The patient does not have an I.U.D. The right ovary is visualized. The right ovary measures 3.7 cm x 2.1 cm x 1.6 cm. Follicles are seen in the right ovary. There is no visualized right adnexal mass or complex lesion. There is normal arterial and normal venous vascularity. The left ovary is visualized. The left ovary measures 4.6 cm x 3.4 cm x 2.3 cm. There is a 1.9 cm x 1.7 cm x 1.3 cm complex cyst in the left ovary. There is no visualized left adnexal mass or complex lesion. There is normal arterial and normal venous vascularity. There is a moderate amount of fluid in the cul-de-sac. US/Transvaginal Non- IMPRESSION: 1.9 cm x 1.7 cm x 1.3 cm complex cyst in the left ovary. Mild to moderate amount of free fluid is seen in the cul-de-sac. Electronically Signed: Chris Romero MD at 11:24 EDT ,
[2023-02-23 10:28] LABS: hCG Titer Quant., Serum < 1 mIU/mL (1-3)
[2023-02-23 10:31] LABS: AST(SGOT) 22 U/L (15-37); Alanine Aminotransfer ALT/SGPT 29 U/L (13-56); Albumin, Serum 3.8 g/dL (3.2-5.0); Alkaline Phosphatase 59 U/L (45-117); Anion Gap 4 (5-15); BUN 11 mg/dL (7-18); BUN/Creat Ratio 12.2 RATIO (10-20); Chloride 109 mmol/L (98-107); EST Glomerular Filtration Rate 82 mL/min (>60); Est Glom Filt Rate - Afr Amer 99 mL/min (>60); Globulin 3.8 g/dL (2.2-4.2); Glucose 88 mg/dL (74-106); Potassium 3.3 mmol/L (3.5-5.1); Protein, Total 7.6 g/dL (6.4-8.2); Sodium Level 140 mmol/L (136-145)
[2023-02-23 11:24] LABS: HIV - WCH Non-Reactive (Nonreactive)
== END | disposition home or self-care (01) ==
PROVIDERS: Referring Provider Nurse Practitioner Women's Health; Visit Provider Nurse Practitioner Women's Health
DX: N92.5 Other specified irregular menstruation (principal); Z72.51 High risk heterosexual behavior; N83.202 Unspecified ovarian cyst, left side
CPT/HCPCS: 36415; 76830; 80053; 80074; 84702; 86703; 86708

== ENCOUNTER 2023-02-28 12:30 | Emergency (ER) | payer MEDICAID, SELFPAY ==
[2023-02-28 12:30] VITALS: BP 111/96; RESP 20; TEMP 35.9; O2SAT 98; BMI 22.4
--- NOTE | 2023-02-28 12:56 | EDS_ITS ---
HPI History of Present Illness Chief Complaint: Dental Informant: patient Narrative Narrative: Patient complains of left lower dental pain. She states it started this morning. She denies trauma. Denies fevers chills. Denies trouble swallowing or breathing. She has had dental problems before. Patient has also had problems with opiate use and abuse. She has been on buprenorphine and naltrexone in the past. She has no allergies to nonsteroidals or antibiotics when asked. [facility] Medical History Anxiety Asthma Bipolar disorder Borderline personality disorder Depression Desire for detoxification Drug abuse Hepatitis C Methamphetamine abuse Mild fentanyl abuse Opioid abuse Seizures Substance abuse Tobacco abuse Home Medications naproxen 500 mg tablet 500 mg PO BID #14 tabs 02/28/23 [Rx Last Taken Unknown] penicillin V potassium 500 mg tablet 500 mg PO 4X/DAY #40 tabs 02/28/23 [Rx Last Taken Unknown] Allergy/AdvReac Type Severity Reaction Status Date / Time almond [almonds] Allergy Anaphylaxis Verified 09/02/22 11:44 tree nut Allergy Anaphylaxis Verified 09/02/22 11:44 Family History Other Drug abuse Surgical History History of tonsillectomy Social History household members: significant other Smoking Status: Current every day smoker tobacco type: cigarettes alcohol intake: current alcohol intake frequency: a few times a week substance use type: marijuana ROS ROS ED Constitutional Constitutional ED: Denies chills or fever(s) ENT ENT ED: Reports other Details: See history of present illness. ; Denies ear pain, rhinorrhea or sore throat Cardiovascular Cardiovascular: Denies chest pain Respiratory/Chest Respiratory/Chest: Denies cough or dyspnea Gastrointestinal Gastrointestinal: Denies abdominal pain, nausea or vomiting Musculoskeletal Musculoskeletal: Denies neck pain Integumentary Denies rash Neurologic Neurologic: Denies headache(s) Psychiatric Psychiatric: Reports anxiety Hematologic/Lymphatic Hematologic/Lymphatic: Denies easy bleeding, easy bruising or lymphadenopathy Allergic/Immunologic Allergic/Immunologic ED: Denies urticaria EXAM Physical Exam Narrative Exam Narrative: Patient is awake alert. She is intermittently crying. But then she is quiet. HEENT: No external swelling. No redness. No rash. Oropharynx looks normal. Tonsils are normal. Handling secretions is normal. She has some dental tenderness over wisdom tooth on the lower left. There is maybe a small cavity in the lateral aspect. There is a minimal amount of gum erythema. But no abscess. No pain with motion of the tongue. No indication whatsoever of Ludewig's angina. Jaw opens and closes well. No sign of dislocation. Neck shows no lymphadenopathy or JVD. Lungs are clear bilaterally. Breathing is easy and unlabored. Saturations are normal at 98% on room air showing no hypoxia. Heart is regular. Rate about 105. I hear no murmur. No muffled tones. Distal pulses are normal. Abdomen soft nontender Const Vital Signs: 02/28/23 12:30 02/28/23 12:30 Temperature 96.7 F L Temperature Source Temporal Respiratory Rate 20 H Blood Pressure 111/96 H Blood Pressure Mean 101 Pulse Ox 98 Oxygen Delivery Method Room Air MDM MDM MDM Narrative Medical decision making narrative: Patient will be given nonsteroidals and antibiotics. No indication of John's. Follow-up with dentist. Return moderate swelling, trouble swallowing, trouble breathing or other concerns. Discharge Plan Triage Chief Complaint: Dental ED Provider: Cecil Castañeda Dx/Rx/DC Orders Clinical Impression: Pain, dental Instructions: ED Dental Pain Prescriptions: New penicillin V potassium 500 mg tablet 500 mg PO 4X/DAY Qty: 40 0RF naproxen 500 mg tablet 500 mg PO BID Qty: 14 0RF Primary Care Provider: [facility] Екатерина Gutierrez Referrals: [facility] Екатерина Gutierrez [Primary Care Provider] - Activity Restrictions/Additional Instructions: Follow-up with your dentist or refer to resource sheet provided. Disposition Disposition: Home, Self Care
[2023-02-28] MEDS: Penicillin Vk 250 MG Tablet 500 MG PO (13:10)
[2023-02-28] MEDS: Naproxen 500 MG Tablet PO (13:10)
[2023-02-28 13:12] VITALS: RESP 16
== END 2023-02-28 13:17 | disposition home or self-care (01) ==
PROVIDERS: Emergency Provider Emergency Medicine; Visit Provider Emergency Medicine
DX: K08.89 Other specified disorders of teeth and supporting structures (principal); F17.210 Nicotine dependence, cigarettes, uncomplicated
CPT/HCPCS: 99285

== ENCOUNTER 2023-09-19 21:32 | Emergency (ER) | payer MEDICAID, SELFPAY ==
[2023-09-19 21:32] VITALS: BP 133/98; PULSE 100; RESP 18; TEMP 36.4; O2SAT 99
--- NOTE | 2023-09-19 22:09 | EDS_ITS ---
HPI HPI - GI History of Present Illness Chief Complaint: Flank Pain Informant: patient Narrative Narrative: 22-year-old female states 1 week ago she had sudden onset of severe pain in her right flank that has been persistent along with burning at the end of urination and some nausea. The pain started first she states. She states she has been in long-term for the past week, so this is the first time she has seen a healthcare provider for this problem which she has not had before. She states her menstrual cycle is late, last normal menstrual cycle started on 07/31/2023, she has not done a test but is usually regular. PFSH PFS Medical History Anxiety Asthma Bipolar disorder Borderline personality disorder Depression Desire for detoxification Drug abuse Hepatitis C Methamphetamine abuse Mild fentanyl abuse Opioid abuse Seizures Substance abuse Tobacco abuse Home Medications naproxen 500 mg tablet 500 mg PO BID #14 tabs 02/28/23 [Rx Last Taken Unknown] penicillin V potassium 500 mg tablet 500 mg PO 4X/DAY #40 tabs 02/28/23 [Rx Last Taken Unknown] dicyclomine 10 mg capsule 20 mg (2 x 10 mg) PO Q6H PRN PRN abdominal pain #20 CAPSULES 09/20/23 [Rx Last Taken Unknown] Allergy/AdvReac Type Severity Reaction Status Date / Time almond [almonds] Allergy Anaphylaxis Verified 09/19/23 21:34 tree nut Allergy Anaphylaxis Verified 09/19/23 21:34 Family History Other Drug abuse Surgical History History of tonsillectomy Social History household members: significant other Smoking Status: Current every day smoker tobacco type: cigarettes alcohol intake: current alcohol intake frequency: a few times a week substance use type: marijuana ROS ROS ED Constitutional Constitutional ED: Denies chills or fever(s) Eyes Eyes: Denies change in vision or diplopia ENT ENT ED: Denies rhinorrhea or sore throat Cardiovascular Cardiovascular: Denies chest pain or palpitations Respiratory/Chest Respiratory/Chest: Denies cough or dyspnea Gastrointestinal Gastrointestinal: Reports abdominal pain and nausea; Denies diarrhea or vomiting Genitourinary Genitourinary ED: Reports dysuria and flank pain; Denies hematuria Musculoskeletal Musculoskeletal: Reports back pain; Denies neck pain Integumentary Denies abscess or rash Neurologic Neurologic: Denies headache(s), paresthesias or weakness Psychiatric Psychiatric: Denies suicidal thoughts EXAM Physical Exam Const Vital Signs: 09/19/23 21:32 Temperature 97.6 F L Temperature Source Temporal Pulse Rate 100 Respiratory Rate 18 Blood Pressure 133/98 H Blood Pressure Mean 109 Pulse Ox 99 Oxygen Delivery Method Room Air Positive well nourished and well developed Constitutional Narrative: well-appearing, playing game on phone during exam General Appearance ED: well developed and NAD HEENT Reports moist mucous membranes normocephalic and atraumatic Eyes PERRL and EOMs intact bilaterally Neck full ROM and supple Resp normal respiratory effort and clear to auscultation bilaterally Cardio regular rate, regular rhythm and no murmurs GI non-distended GI Narrative: tender throughout R abd, flank, and CVA. nondistended. nml on inspection. Auscultation: normoactive bowel sounds Palpation: soft Back/Spine General Back: CVA tenderness right and other FROM Extremity normal to inspection General Extremety ED: Negative for edema, pulses abnormal or tenderness General Extremity: Negative for edema or pulses abnormal Neuro oriented x3, CN's II-XII intact bilaterally and no sensory deficits noted Sensorium / Orientation: awake and alert Motor Exam: strength 5/5 throughout Psych mental status grossly normal and thought process normal Mood & Affect: anxious Skin no rashes or lesions noted and no wounds MDM MDM MDM Narrative Medical decision making narrative: Extended differential here given the possibility that the patient could be since she missed her menstrual cycle this past month. Therefore prior to ordering any imaging, we ordered labs and waited for urine to come back. It is negative. Therefore, differential items that are higher on the list include kidney stone, pyelonephritis although the patient does not appear that ill, appendicitis and other GI etiologies, and less likely ovarian etiologies so a CT was obtained initially since ultrasound is not physically here when the patient presented. CT was performed as above, I reviewed the images and the report which I agree with, it shows a significant collection of hard stool in the entire proximal colon. This is the exact distribution of where the patient is having pain. Colonic pain can radiate into this low back as this patient is also having. Since her urinalysis is negative and there is no abnormal kidney function or imaging on CT, nor are there evidence of ovarian enlargement, nor any other inflamed structures on CT to suggest an alternative etiology of her pain, I suspect the obstipation is causing her pain. She apparently has a history of opiate/substance abuse, which may be related to this. The patient was initially given Toradol she said it did not help her pain but she remained well-appearing states she has had this pain for a week, so we waited until the CT return before treating her with any narcotics which at this point are not indicated since they could worsen this problem. She understands that. Given dicyclomine as well as a prescription, she has MiraLAX at home and given instructions for using that to help solve this problem, and advised to follow-up if she has persistent pain subsequently. She is comfortable with that plan and for the reasons above although we considered I do not think she needs an emergent ultrasound at this time and we did do a which was negative ruling out ectopic . Lab Data Attestation: I reviewed the patient's lab results. Labs: Laboratory Results - last 24 hr 09/19/23 22:20 WBC 12.6 H RBC 4.41 Hgb 13.2 Hct 39.1 MCV 88.7 MCH 29.9 MCHC 33.8 RDW Std Deviation 38.2 RDW Coeff of Shanda 11.9 Plt Count 273 MPV 10.0 Immature Gran % (Auto) 0.200 Neut % (Auto) 64.9 Lymph % (Auto) 25.2 Isabel[place] % (Auto) 8.1 Eos % (Auto) 1.0 Baso % (Auto) 0.6 Absolute Neuts (auto) 8.2 H Absolute Lymphs (auto) 3.16 Nucleated RBC % 0 Sodium 140 Potassium 3.5 Chloride 106 Carbon Dioxide 31.0 Anion Gap 3 L BUN 9 Creatinine 0.72 Estim Creat Clear Calc 108.12 Est GFR (MDRD) Af Amer 128 Est GFR (MDRD) Non-Af 106 BUN/Creatinine Ratio 12.5 Glucose 117 H Calcium 9.3 Urine Color Yellow Urine Clarity Clear Urine pH 6.[address] 1.020 Urine Protein 30 H Urine Glucose (UA) Normal Urine Ketones Negative Urine Occult Blood 10 H Urine Nitrite Negative Urine Bilirubin Negative Urine Urobilinogen Normal Ur Leukocyte Esterase Negative Urine RBC 0 SEEN Urine WBC 0-5 SEEN Ur Squamous Epith Cells 5-10 SEEN Ur Transition Epith Cell 0-5 SEEN Urine Bacteria 0 SEEN Urine Mucus 0 SEEN Urine Test Negative Radiography Diagnostic Testing: Clinical Impression(s) from Imaging Studies Abdomen/Pelvis CT 09/19/23 22:58 IMPRESSION: No significant interval change. No acute findings in the abdomen or pelvis. No renal or obstructing ureteral stones. Moderate to large amount of formed stool within the proximal colon. Electronically Signed: Juan Pan MD at 0:46 EST , Discharge Plan Triage Chief Complaint: Flank Pain ED Provider: Crow Connor Dx/Rx/DC Orders Clinical Impression: Right sided abdominal pain, Constipation Instructions: ED Abdominal Pain Unkn Cause Fem, ED Constipation (Adult) Prescriptions: New dicyclomine 10 mg capsule 20 mg PO Q6H PRN PRN (Reason: abdominal pain) Qty: 20 0RF No Action penicillin V potassium 500 mg tablet 500 mg PO 4X/DAY Qty: 40 0RF naproxen 500 mg tablet 500 mg PO BID Qty: 14 0RF Primary Care Provider: [facility] Екатерина Gutierrez Referrals: [facility] Екатерина Gutierrez [Primary Care Provider] - 3-5 Days if not improving Activity Restrictions/Additional Instructions: Use about 1 cup of MiraLAX chased with plenty of any water-based fluid other than alcohol or caffeinated beverages, throughout the day in order to perform a mild colon flush which hopefully will help resolve your symptoms. If it does not after having good bowel movements, follow-up with your doctor. Disposition Disposition: Home, Self Care
--- OUTSIDE RECORDS SUMMARY | 2023-09-19 22:22 | XMS RPT_ITS | CCD ---
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 condom use. Would like STD testing, was told ex boyfriend had HIV and would like to know. Patient with flight of ideas, difficulty keeping focused, and very frequent questions during visit. No past medical history on file. No past surgical history on file. FAMILY HISTORY Problem Relation Age of Onset - other (hyperactivity) Other both sides of family Social History Tobacco Use - Smoking status: Current Every Day Smoker - Smokeless tobacco: Never Used - Tobacco comment: Grandfather smokes Substance Use Topics - Alcohol use: Not Currently - Drug use: Yes Types: Marijuana, Crystal Meth Comment: frequently Current Outpatient Medications Medication Sig - FLUoxetine (PROZAC) 20 mg capsule Take by mouth. - OXcarbazepine (TRILEPTAL) 300 mg tablet Take by mouth. - paliperidone ER (INVEGA) 3 mg 24 hr tablet Take 3 mg by mouth once daily. - traZODone (DESYREL) 50 mg tablet Take 50 mg by mouth daily at bedtime. - hydrOXYzine pamoate (VISTARIL) 50 mg capsule Take 50 mg by mouth three times daily as needed. No current facility-administered medications for this visit. Allergies As of Date: 01/06/2021 Allergen Noted Reaction TREE NUTS 03/14/2018 Hives and Swelling Fully Assessed 01/06/2021 REVIEW OF SYSTEMS Abdomen: No bloating, early satiety, indigestion, or increased flatulence. No abdominal pain, nausea, vomiting, diarrhea, or constipation. Bladder: No dysuria, gross hematuria, urinary frequency, urinary urgency, or incontinence. Breast: No breast lumps, nipple d/c, overlying skin changes, redness or skin retraction. Expanded ROS: N/A Allergies and current medication updated:Yes EXAM: BP 98/60 Wt 127 lb (57.6kg) LMP 01/04/2021 GENERAL: pleasant, female in no apparent distress HEENT: Normocephalic and atraumatic NECK: Supple and full range of motion CHEST: Clear to auscultation, Normal inspiratory effort, Regular rate and rhythm and No murmurs, clicks, rubs or gallops ABDOMEN: soft, non-tender and no masses PELVIC: external genitalia normal, normal Bartholin's glands, urethra, Leyner's glands, no vulvar lesions, no cervical lesions, good vaginal support, physiologic discharge present, normal appearing perineal body and perianal region BIMANUAL: uterus normal size, shape and consistency, no adnexal masses and non-tender NEURO: alert and oriented x3,exam grossly non-focal EXTREMITIES: normal ASSESSMENT AND PLAN: 1. High risk heterosexual behavior - ICD9: V69.2, ICD10: Z72.51 (primary diagnosis) - GC/CHLAMYDIA DNA DET - SYPHILIS TOTAL W/REFLEX - HIV 1 2 COMBO(AG/AB),WITH REFLEX TO DIFFERENTIATION - HEP C AB IA W/CONF SCRN - HEP B SURF AG SCRN - TRICHOMONAS PREP/ANTIGEN - SYPHILIS TOTAL W/REFLEX - HEP C AB IA W/CONF SCRN 2. Vaginal discharge - ICD9: 623.5, ICD10: N89.8 - BACT/MARIS VAG GRAM STAIN 3. Encounter for initial prescription of implantable subdermal contraceptive - ICD9: V25.02, ICD10: Z30.017 -Patient asking for nexplanon placement today and does not want to get . - NEXPLANON INSERTION 4. Insertion of implantable subdermal contraceptive - ICD9: V25.5, ICD10: Z30.017 - ETONOGESTREL 68 MG SUBDERMAL IMPLANT - HCG QUAL UR B/O Angle Tillman APRN.DANA Arriola is a 20 year old patient who presents for Nexplanon insertion. Patient's last menstrual period was 01/04/2021. VITALS: BP 98/60 Wt 127 lb (57.6kg) LMP 01/04/2021 test: negative Nexplanon lot #: [id number] Exp date: 02/13/2023 UNIVERSAL PROTOCOL / SAFETY CHECKLIST Procedure to be performed: Sign in Communication: Completed Time Out: Team Confirms the Correct Patient, Correct Procedure, Correct Site and Site Marking, Correct Position (if applicable), Prep and Dry Time (if applicable). Time: 1513 Affirmation of Time Out: YES Sign Out Discussion: Completed Angle Tillman APRN.CNM TECHNIQUE: Patient placed in supine position with left) bent at the elbow and placed over the head. Skin cleansed with betadine. 2 mL of 1% lidocaine with 1:100,000 epi injected subQ along insertion site. Nexplanon ariana inserted under sterile technique. After insertion by the provider, the ariana was palpable under the skin by both patient and provider. Steristrips and sterile pressure dressing applied. AANDP: Nexplanon inserted without complications. Patient user card w (more content not included)... [facility] documented in this encounter [facility] Work Phone: Evaluation note* Diagnosis Methamphetamine abuse (HCC)- Primary Nondependent amphetamine or related acting sympathomimetic abuse, unspecified documented in this encounter [facility] Work Phone: Hospital Course Discharge Summary No Discharge Summary Informa tion Discharge Instructions Discharge Instructions No Discharge Instructions Summary Purpose Family History No Family History Records FoundNo Family History Records FoundNo Family History Records FoundNo Family History Records FoundNo Family History Records FoundNo Family History Records FoundNo Family History Records FoundNo Family History Records FoundNo Family History Records FoundNo Family History Records FoundNo Family History Records FoundNo Family History Records Found Advance Directives No Advanced Directives Records FoundDocuments on File Type Date Recorded Patient Apple Sorter Expl anation Advance Directive(s) 03/01/2021 3:42 AM Advance Directive(s) 02/24/2021 6:03 PM Advance Directive(s) 07/22/2018 5:25 PM Latest Code Status on File Code Status Date Activated Date Inactivated Comments Full Code 03/17/2021 7:54 PM 03/21/2021 6:13 PM Documents on File Type Date Recorded Patient Apple Sorter Expl anation Advance Directive(s) Advance Directive(s) 12/19/2021 9:32 PM Advance Directive(s) 04/07/2021 8:46 PM Health Concerns Infection Onset Date Last Indicated Resolved Time COVID-19 Rule-Out 03/01/2021 03/01/2021 03/01/2021 7:42 AM EDT Additional Source Comments INFORMATION SOURCE (unrecogn ized section and content) DATE CREATED AUTHOR AUTHOR'S ORGANIZ ATION 06/11/2018 [facility] DATE CREATED AUTHOR AUTHOR'S ORGANIZ ATION 05/21/2019 [facility] ([place]) DATE CREATED AUTHOR AUTHOR'S ORGANIZ ATION 05/21/2019 [facility] DATE CREATED AUTHOR AUTHOR'S ORGANIZ ATION 05/21/2019 [facility] ([place]) DATE CREATED AUTHOR AUTHOR'S ORGANIZ ATION 01/27/2021 [facility] DATE CREATED AUTHOR AUTHOR'S ORGANIZ ATION 04/11/[address] [facility] DATE CREATED AUTHOR AUTHOR'S ORGANIZ ATION 09/20/2021 [facility] DATE CREATED AUTHOR AUTHOR'S ORGANIZ ATION 12/07/2021 [facility] DATE CREATED AUTHOR AUTHOR'S ORGANIZ ATION 02/14/2022 [facility] DATE CREATED AUTHOR AUTHOR'S ORGANIZ ATION 06/13/2022 [facility] DATE CREATED AUTHOR AUTHOR'S ORGANIZ ATION 09/16/2022 [facility] Reason for Visit (unrecogniz ed section and content) Reason Comments Follow Up post- hospital follo w up Reason Comments No Show 1st No Show Dr. 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 Reason Comments Drug / Alcohol Assessment pt used fentan yl and meth and wants checked, pt refusing detox Reason Comments ER F/U Scheduled Active and Recently Administ ered Medications (unrecognized section and content) Source Comments (unrecognize d section and content) In the event this informatio n is protected by the Federal Confidentiality of Alcohol and Drug Abuse Patient Records regulations: The Federal rules restrict any use of the information to criminally investigate or prosecute any alcohol or drug abuse patient.[facility] the event this information is protected by the Federal Confidentiality of Alcohol and Drug Abuse Patient Records regulations: The Federal rules restrict any use of the information to criminally investigate or prosecute any alcohol or drug abuse patient.[facility] Hospital[facility] the event this information is protected by the Federal Confidentiality of Alcohol and Drug Abuse Patient Records regulations: The Federal rules restrict any use of the information to criminally investigate or prosecute any alcohol or drug abuse patient.[facility] Hospital[facility] the event this information is protected by the Federal Confidentiality of Alcohol and Drug Abuse Patient Records regulations: The Federal rules restrict any use of the information to criminally investigate or prosecute any alcohol or drug abuse patient.[facility] HospitalIn the event this information is protected by the Federal Confidentiality of Alcohol and Drug Abuse Patient Records regulations: The Federal rules restrict any use of the information to criminally investigate or prosecute any alcohol or drug abuse patient.[facility] Care Teams (unrecognized sec tion and content) Global Lead Relationship Specialty Start Date End Date Karin Peters MD [address] [place] [address] PCP - General Internal Medicine 08/29/21 FOR RECORDS PERTAINING TO PATIENTS WHO ARE OR HAVE BEEN ENROLLED IN A CHEMICAL DEPENDENCY/SUBSTANCEABUSE PROGRAM, SOME INFORMATION MAY BE OMITTED. This clinical summary was aggregated from multiple sources. Caution should be exercised in using it in the provision of clinical care. This summary normalizes information from multiple sources, and as a consequence, information in this document may materially change the coding, format and clinical context of patient data. In addition, data may be omitted in some cases. CLINICAL DECISIONS SHOULD BE BASED ON THE PRIMARY CLINICAL RECORDS. [employer] [facility]. provides no warranty or guarantee of the accuracy or completeness of information in this document.
[2023-09-19] MEDS: Ondansetron 4 MG/2 ML Vial IV (22:25)
[2023-09-19 22:35] LABS: Bacteria 0 SEEN /hpf (None Seen); Mucous, Urine 0 SEEN /hpf (<or=2+); Red Blood Cells-Urine 0 SEEN /hpf (0-5)
[2023-09-19 22:37] LABS: Absolute Lymphocyte Count 3.16 X10^3/uL (0.83-4.51); Absolute Neutrophil Count 8.2 X10^3/uL (2.0-7.7); Basophil# 0.08 X10^3/uL; Basophil% 0.6 % (0-1); Eosinophil# 0.12 X10^3/uL; Hematocrit 39.1 % (37-47); Hemoglobin 13.2 g/dL (12.0-15.0); Lymphocyte # 3.16 X10^3/ul (0.83-4.51); Lymphocyte % 25.2 % (19-41); Mean Corp Hgb Conc 33.8 g/dL (32-36); Mean Corpuscular Hgb 29.9 pg (27.0-32.0); Mean Corpuscular Volume 88.7 fL (81-99); Monocyte# 1.02 X10^3/uL; Monocyte% 8.1 % (0-10); NRBC Flagged by Analyzer 0 % (0-5); Neutrophil # 8.15 X10^3/uL (2.7-7.7); Neutrophil % 64.9 % (47-70); Platelet Count 273 K/mm3 (150-450); RBC Distribution Width CV 11.9 % (11.6-14.6); RBC Distribution Width SD 38.2 fl (35.1-43.9); Red Blood Count 4.41 M/mm3 (4.2-5.4); White Blood Count 12.6 K/mm3 (4.4-11.0)
[2023-09-19 22:42] LABS: Color, Urine Yellow (Yellow); Glucose, Dipstick Normal (Normal); Ketone-Dipstick Negative (Negative); Leukocyte Esterase-Dipstick Negative /ul (Negative); Nitrite-Dipstick Negative (Negative); Occult Blood-Urine 10 /ul (Negative); Protein-Dipstick 30 mg/dl (Negative); Urine Bilirubin Dipstick Negative (Negative); Urine Clarity Clear (Clear); Urine Urobilinogen Normal (Normal)
[2023-09-19 22:51] LABS: Internal QC Validated? YES +Cl - CLEAR BKGD; Pregnancy, Urine Negative Negative
[2023-09-19 22:54] LABS: Anion Gap 3 (5-15); BUN 9 mg/dL (7-18); BUN/Creat Ratio 12.5 RATIO (10-20); Calcium,Total 9.3 mg/dL (8.5-10.1); Chloride 106 mmol/L (98-107); Creatinine, Serum 0.72 mg/dL (0.55-1.02); EST Glomerular Filtration Rate 106 mL/min (>60); Est Glom Filt Rate - Afr Amer 128 mL/min (>60); Estimated Creatinine Clearance 108.12 ml/min; Glucose 117 mg/dL (74-106); Potassium 3.5 mmol/L (3.5-5.1); Sodium Level 140 mmol/L (136-145)
--- NOTE | 2023-09-19 22:58 | CT_ITS ---
EXAM: CT ABDOMEN AND PELVIS WITHOUT INTRAVENOUS CONTRAST CLINICAL INDICATION: R flank pain TECHNIQUE: Helically acquired images were obtained of the abdomen and pelvis without intravenous contrast. This CT exam was performed using one or more of the following dose reduction techniques: automated exposure control, adjustment of the mA and/or kV according to patient size, and/or use of iterative reconstruction technique. RADIATION DOSE: Total DLP: 300.51 mGy-cm. COMPARISON: Previous enhanced CT of 11/20/2020. FINDINGS: LOWER THORAX: Incidental dependent atelectasis noted at the lung bases. There is a trace of pleural fluid bilaterally. No basilar pneumonia. No coronary artery calcification or significant pericardial effusion. ABDOMEN: LIVER: Unremarkable. Homogeneous. GALLBLADDER AND BILE DUCTS: Unremarkable. No calcified gallstones. No gallbladder distention or wall edema. No intra- or extrahepatic biliary ductal dilation. PANCREAS: Unremarkable. No focal cystic mass. SPLEEN: Unremarkable. Normal size without focal cystic or solid mass. ADRENALS: Unremarkable. No nodules. KIDNEYS AND URETERS: Unremarkable. Normal renal size and position. No hydronephrosis. No renal or obstructing ureteral stones. No perirenal stranding. STOMACH AND BOWEL: Moderate to large amount of formed stool within the cecum and ascending colon. No stomach or bowel distention. No focal inflammatory change. PELVIS: APPENDIX: Normal. No evidence of acute appendicitis. BLADDER: Unremarkable. REPRODUCTIVE: Unremarkable as visualized. No mass. ABDOMEN and PELVIS: INTRAPERITONEAL SPACE: Unremarkable. No ascites or other fluid collection. No free air. BONES/JOINTS: Stable chronic asymmetric soft tissue fullness within the right neural foramen at L5/S1, possibly an asymmetrically prominent nerve root sleeve. Lower thoracic degenerative spurring. No acute osseous abnormality. No suspicious lytic or blastic abnormality. SOFT TISSUES: Unremarkable. No discrete abdominal or pelvic wall hernia. The rectus and psoas muscles are symmetric. VASCULATURE: Normal caliber abdominal aorta. LYMPH NODES: Stable normal size periaortic lymph node at the level of the kidneys. No adenopathy. CT/Abdomen/Pelvis without Cont IMPRESSION: No significant interval change. No acute findings in the abdomen or pelvis. No renal or obstructing ureteral stones. Moderate to large amount of formed stool within the proximal colon. Electronically Signed: Juan Pan MD at 0:46 EST ,
[2023-09-19 23:03] LABS: Squamous Epithelial Cells - UA 5-10 SEEN /hpf (5-10); Transitional Epithelial - Ur 0-5 SEEN /hpf (0-5); White Blood Cells 0-5 SEEN /hpf (0-5)
[2023-09-19] MEDS: Ketorolac 30 MG/ML Syringe IV (23:20)
[2023-09-20] MEDS: Dicyclomine 10 MG Capsule 20 MG PO (01:12)
[2023-09-20 01:16] VITALS: BP 115/75; PULSE 77; RESP 12; O2SAT 99
== END 2023-09-20 01:17 | disposition home or self-care (01) ==
PROVIDERS: Emergency Provider Emergency Medicine; Visit Provider Emergency Medicine
DX: R10.9 Unspecified abdominal pain (principal); K59.00 Constipation, unspecified; F17.210 Nicotine dependence, cigarettes, uncomplicated
CPT/HCPCS: 74176; 80048; 81001; 81025; 85025; 96374; 96375; 99284; A4216; J2405

== ENCOUNTER → 2024-06-21 | Outpatient (CLI) | payer MEDICAID, SELFPAY ==
[2024-06-21 13:17] LABS: Absolute Lymphocyte Count 1.98 X10^3/uL (0.83-4.51); Absolute Neutrophil Count 2.4 X10^3/uL (2.0-7.7); Basophil# 0.05 X10^3/uL; Eosinophil# 0.07 X10^3/uL; Eosinophils% 1.4 % (0-5); Hematocrit 40.2 % (37-47); Hemoglobin 13.5 g/dL (12.0-15.0); Lymphocyte # 1.98 X10^3/ul (0.83-4.51); Lymphocyte % 40.7 % (19-41); Mean Corp Hgb Conc 33.6 g/dL (32-36); Mean Corpuscular Hgb 31.5 pg (27.0-32.0); Mean Corpuscular Volume 93.7 fL (81-99); Mean Platelet Vol. 10.1 fl (6.2-12.0); Monocyte# 0.31 X10^3/uL; Monocyte% 6.4 % (0-10); NRBC Flagged by Analyzer 0 % (0-5); Neutrophil # 2.44 X10^3/uL (2.7-7.7); Neutrophil % 50.3 % (47-70); Platelet Count 283 K/mm3 (150-450); RBC Distribution Width CV 12.4 % (11.6-14.6); RBC Distribution Width SD 42.7 fl (35.1-43.9); Red Blood Count 4.29 M/mm3 (4.2-5.4); White Blood Count 4.9 K/mm3 (4.4-11.0)
[2024-06-21 13:37] LABS: International Normalized Ratio 1.1; Prothrombin Time (Protime)PT. 14.6 SECONDS (11.7-14.9)
[2024-06-21 13:41] LABS: ALB/GLOB Ratio 1.2 RATIO (0.9-2.4); AST(SGOT) 35 U/L (15-37); Alanine Aminotransfer ALT/SGPT 59 U/L (13-56); Albumin, Serum 4.2 g/dL (3.2-5.0); Alkaline Phosphatase 50 U/L (45-117); Anion Gap 3 (5-15); BUN 13 mg/dL (7-18); Calcium,Total 9.1 mg/dL (8.5-10.1); Chloride 106 mmol/L (98-107); Creatinine, Serum 0.87 mg/dL (0.55-1.02); EST Glomerular Filtration Rate 85 mL/min (>60); Est Glom Filt Rate - Afr Amer 103 mL/min (>60); Globulin 3.5 g/dL (2.2-4.2); Glucose 115 mg/dL (74-106); Potassium 3.8 mmol/L (3.5-5.1); Protein, Total 7.7 g/dL (6.4-8.2); Sodium Level 137 mmol/L (136-145)
[2024-06-21 14:20] LABS: HIV - WCH Non-Reactive (Nonreactive); Hepatitis B Surface Antibody Non-Reactive; Hepatitis B Surface Antigen Non-Reactive (Nonreactive)
[2024-06-21 14:23] LABS: Hepatitis C Antibody REACTIVE (Nonreactive)
[2024-06-24 22:06] LABS: Hepatitis C Genotype 1a (.)
[2024-06-25 15:07] LABS: HCV Quant. RNA PCR 220000 IU/mL (.); HCV log 10 5.342 (.); Hepatitis A AB, Total Positive (Negative)
== END | disposition home or self-care (01) ==
PROVIDERS: Referring Provider Family Medicine; Visit Provider Family Medicine
DX: B18.2 Chronic viral hepatitis C (principal)
CPT/HCPCS: 36415; 80053; 85025; 85610; 86703; 86706; 86708; 86803; 87340; 87522; 87902

== ENCOUNTER 2024-09-18 14:47 | Emergency (ER) | payer MEDICAID, SELFPAY ==
[2024-09-18 14:48] VITALS: BP 92/64; PULSE 116; RESP 20; TEMP 36.3; O2SAT 97
== END 2024-09-18 15:50 | disposition left against medical advice (07) ==
LOC: ED 16:23
DX: R07.9 Chest pain, unspecified (principal); Z53.21 Procedure and treatment not carried out due to patient leaving prior to being seen by health care provider
CPT/HCPCS: 93005; 99281

== ENCOUNTER 2024-10-03 12:23 | Emergency (ER) | payer MEDICAID, SELFPAY ==
[2024-10-03 12:24] VITALS: BP 119/81; PULSE 95; RESP 16; TEMP 36.2; O2SAT 99; BMI 24.6
[2024-10-03 13:18] LABS: Absolute Lymphocyte Count 2.06 X10^3/uL (0.83-4.51); Absolute Neutrophil Count 4.3 X10^3/uL (2.0-7.7); Basophil# 0.06 X10^3/uL; Basophil% 0.9 % (0-1); Eosinophil# 0.11 X10^3/uL; Eosinophils% 1.6 % (0-5); Hemoglobin 13.8 g/dL (12.0-15.0); Lymphocyte # 2.06 X10^3/ul (0.83-4.51); Lymphocyte % 29.7 % (19-41); Mean Corp Hgb Conc 34.5 g/dL (32-36); Mean Corpuscular Hgb 30.7 pg (27.0-32.0); Mean Corpuscular Volume 89.1 fL (81-99); Mean Platelet Vol. 9.8 fl (6.2-12.0); Monocyte# 0.43 X10^3/uL; Monocyte% 6.2 % (0-10); NRBC Flagged by Analyzer 0 % (0-5); Neutrophil # 4.25 X10^3/uL (2.7-7.7); Neutrophil % 61.3 % (47-70); Platelet Count 246 K/mm3 (150-450); RBC Distribution Width CV 11.9 % (11.6-14.6); RBC Distribution Width SD 38.7 fl (35.1-43.9); Red Blood Count 4.49 M/mm3 (4.2-5.4); White Blood Count 6.9 K/mm3 (4.4-11.0)
[2024-10-03 13:19] LABS: Color, Urine Yellow (Yellow); Glucose, Dipstick Normal (Normal); Ketone-Dipstick 5 mg/dl (Negative); Leukocyte Esterase-Dipstick 500 /ul (Negative); Nitrite-Dipstick Negative (Negative); Occult Blood-Urine 10 /ul (Negative); Protein-Dipstick 30 mg/dl (Negative); Specific Gravity, Urine 1.025 (1.002-1.030); Urine Bilirubin Dipstick Negative (Negative); Urine Clarity Clear (Clear); Urine Urobilinogen Normal (Normal)
[2024-10-03 13:29] VITALS: O2SAT 97
[2024-10-03 13:37] LABS: Amphetamine Urine NEGATIVE (<1000 ng/mL); Barbiturate Urine VISTA NEGATIVE (< 200 ng/mL); Benzodiazepine Urine VISTA NEGATIVE (< 200 ng/mL); Cocaine Urine VISTA NEGATIVE (< 300 ng/mL); Ecstacy Urine VISTA POSITIVE (< 500 ng/mL); Methadone Urine VISTA NEGATIVE (< 300 ng/mL); Opiates Urine NEGATIVE (< 300 ng/mL); PCP Urine NEGATIVE (< 25 ng/mL); THC Urine VISTA NEGATIVE (< 50 ng/mL); Vista UDS pH Range 5
[2024-10-03 13:39] LABS: Internal QC Validated? YES +Cl - CLEAR BKGD; Pregnancy, Serum, hCG Quali. NEGATIVE Negative
[2024-10-03 13:46] LABS: Bacteria 1+ /hpf (None Seen); Mucous, Urine 1+ /hpf (<or=2+); Red Blood Cells-Urine 0-5 SEEN /hpf (0-5); Squamous Epithelial Cells - UA 10-25 SEEN /hpf (5-10); White Blood Cells 0-5 SEEN /hpf (0-5)
[2024-10-03 13:47] LABS: Alcohol, Blood (Medical)-Serum < 3.0 mg/dL
--- NOTE | 2024-10-03 13:49 | RAD_ITS ---
PROCEDURE: CHEST 1 VIEW (PORTABLE) REASON FOR EXAM: Cough TECHNIQUE: Frontal view of the chest. COMPARISON: None. FINDINGS: The heart size is normal. The mediastinal contour is unremarkable. The lungs are clear. The bones are unremarkable. RAD/Chest 1 View (Portable) IMPRESSION: No radiographic evidence of acute cardiopulmonary disease Reading Location: [facility]
[2024-10-03 13:51] LABS: ALB/GLOB Ratio 1.3 RATIO (0.9-2.4); AST(SGOT) 18 U/L (15-37); Alanine Aminotransfer ALT/SGPT 19 U/L (13-56); Albumin, Serum 4.2 g/dL (3.2-5.0); Alkaline Phosphatase 45 U/L (45-117); Anion Gap 7 (5-15); BUN 15 mg/dL (7-18); BUN/Creat Ratio 17.1 RATIO (10-20); Calcium,Total 9.2 mg/dL (8.5-10.1); Chloride 106 mmol/L (98-107); Creatinine, Serum 0.88 mg/dL (0.55-1.02); EST Glomerular Filtration Rate 84 mL/min (>60); Est Glom Filt Rate - Afr Amer 101 mL/min (>60); Estimated Creatinine Clearance 87.41 ml/min; Globulin 3.3 g/dL (2.2-4.2); Glucose 105 mg/dL (74-106); Protein, Total 7.5 g/dL (6.4-8.2); Sodium Level 139 mmol/L (136-145)
[2024-10-03 14:00] VITALS: BP 131/96; PULSE 89; RESP 14; O2SAT 98
--- NOTE | 2024-10-03 14:36 | EX.ED.DYSGE1 ---
HPI History of Present Illness Chief Complaint: Substance Abuse Narrative Narrative: Patient is a 24-year-old female past medical history updated see, substance abuse, anxiety, depression who presented to the emergency department the chief complaint of needing detox as she is set up to go to outpatient recovery unit however they are requesting her go through detox first therefore she came here. Patient states that she used fentanyl about 2 days ago. Patient in triage note told the triage nurse that she was suicidal and she tried to kill herself 2 days ago when she did fentanyl however states that they brought her back and states that they did CPR. When asked what this means to her she states that she thinks they did a sternal rub but she is actually unsure of what all transpired. She states that she is not suicidal or homicidal here today and when asked what changed she states that she was in a very bad situation and could not get out of the situation as she was currently in secondary to not having money. I asked her how she got on the situation she states that she simply ran away. I asked her if she reported this to the police she said no and she does not want to do so she states that I do not want that drama patient states that she just wants detoxing to go to this facility for recovery. [facility] Medical History Borderline personality disorder Hepatitis C Substance abuse Depression Anxiety Bipolar disorder Asthma Seizures Opioid abuse Methamphetamine abuse Tobacco abuse Desire for detoxification Mild fentanyl abuse Drug abuse Home Medications ?Medication ?Instructions ?Recorded ?Last Taken ?Type naproxen 500 mg tablet 500 mg PO BID #14 tabs 02/28/23 Unknown Rx penicillin V potassium 500 mg 500 mg PO 4X/DAY #40 tabs 02/28/23 Unknown Rx tablet dicyclomine 10 mg capsule 20 mg (2 x 10 mg) PO Q6H PRN PRN 09/20/23 Unknown Rx abdominal pain #20 CAPSULES Allergy/AdvReac Type Severity Reaction Status Date / Time almond (almonds) Allergy Anaphylaxis Verified 10/03/24 12:24 tree nut Allergy Anaphylaxis Verified 10/03/24 12:24 Family History Other Drug abuse Surgical History History of tonsillectomy Social History household members: significant other Smoking Status: Current every day smoker tobacco type: cigarettes alcohol intake: current alcohol intake frequency: a few times a week substance use type: marijuana ROS ROS ED ROS Narrative Constitutional: Denies any fevers, chills, headaches, lightness, dizziness Eyes: Denies change in vision double vision blurry vision Cardiovascular: Denies chest pain or palpitations Respiratory: Denies coughing wheezing shortness of breath Abdomen: Denies abdominal pain nausea vomit diarrhea : Denies any urinary symptoms Neurological: Denies numbness, weakness, tingling Musculoskeletal: Denies back pain Skin: Denies any rashes or lesions EXAM Physical Exam Narrative Exam Narrative: General: Atraumatic, normocephalic Head: PERRL bilaterally, EOMI bilateral, no conjunctival injection noted Eyes: Soft, supple, trachea midline Neck: Regular rate and rhythm no murmurs gallops rubs noted Cardiovascular: Clear to auscultation bilaterally no rales rhonchi wheezes noted Respiratory: Soft, nondistended, nontender to palpation, bowel sounds present x 4 Abdomen: No tenderness to palpation, soft nondistended Extremities: +5/5 strength noted in the bilateral upper and lower extremities, radial pulses +2/4 in the bilateral extremities, no pedal edema on exam Neurological: Patient following commands knew that she was at [facility] years 2024 Skin: Warm, dry, intact no rashes or lesions noted Const Vital Signs: 10/03/24 12:24 10/03/24 13:29 10/03/24 14:00 Temperature 97.1 F L Temperature Source Temporal Pulse Rate 95 89 Respiratory Rate 16 14 Blood Pressure 119/81 H 131/96 H Blood Pressure Mean 93 107 Pulse Ox 99 97 98 Oxygen Delivery Method Room Air Room Air Room Air MDM MDM MDM Narrative Medical decision making narrative: Patient is a 24-year-old female who presented to the emergency department with a chief complaint of needing detox for fentanyl before she can go to [facility] recovery. On the differential diagnosis includes but limited to opiate withdrawal, polysubstance abuse, . Once workup is obtained reviewed she will be reevaluated. I have very low suspicion that she had CPR performed as noted in the triage note as it seems that she may have just had sternal rub she has no chest pain and no isaacs to suggest this. Patient's CBC was reviewed and was largely unremarkable no evidence leukocytosis white blood count normal at 6.9, hemoglobin 13.8, plate count noted to be 246. Patient sodium normal 139, potassium normal at 4, creatinine normal at 0.88. Patient AST and ALT were 18 and 19 respectively. Patient test negative, urinalysis did not show any evidence of infection does appear to be contaminated as there is 10-25 squamous epithelial cells noted. Patient's chest x-ray reviewed and showed no acute cardiopulmonary processes. Will discuss case with hospitalist for detox admission. Did discuss case with hospitalist Dr. Grimes to accept patient for admission. Patient notified she is agreeable this plan all question concerns answered once again she is not suicidal nor homicidal here in the emergency department. Lab Data Labs: Laboratory Results - last 24 hr 10/03/24 13:00 WBC 6.9 RBC 4.49 Hgb 13.8 Hct 40.0 MCV 89.1 MCH 30.7 MCHC 34.5 RDW Std Deviation 38.7 RDW Coeff of Shanda 11.9 Plt Count 246 MPV 9.8 Immature Gran % (Auto) 0.300 Neut % (Auto) 61.3 Lymph % (Auto) 29.7 Hill % (Auto) 6.2 Eos % (Auto) 1.6 Baso % (Auto) 0.9 Absolute Neuts (auto) 4.3 Absolute Lymphs (auto) 2.06 Nucleated RBC % 0 Sodium 139 Potassium 4.0 Chloride 106 Carbon Dioxide 26.0 Anion Gap 7 BUN 15 Creatinine 0.88 Estim Creat Clear Calc 87.41 Est GFR (MDRD) Af Amer 101 Est GFR (MDRD) Non-Af 84 BUN/Creatinine Ratio 17.1 Glucose 105 Calcium 9.2 Total Bilirubin 0.40 AST 18 ALT 19 Alkaline Phosphatase 45 Total Protein 7.5 Albumin 4.2 Globulin 3.3 Albumin/Globulin Ratio 1.3 Serum , Qual NEGATIVE Urine Color Yellow Urine Clarity Clear Urine pH 6.0 Ur Specific [place] 1.025 Urine Protein 30 H Urine Glucose (UA) Normal Urine Ketones 5 H Urine Occult Blood 10 H Urine Nitrite Negative Urine Bilirubin Negative Urine Urobilinogen Normal Ur Leukocyte Esterase 500 H Urine RBC 0-5 SEEN Urine WBC 0-5 SEEN Ur Squamous Epith Cells 10-25 SEEN Urine Bacteria 1+ Urine Mucus 1+ Urine Opiates Screen NEGATIVE Urine Methadone Screen NEGATIVE Ur Barbiturates Screen NEGATIVE Ur Phencyclidine Scrn NEGATIVE Ur Amphetamines Screen NEGATIVE MDMA (Ecstasy) Screen POSITIVE H U Benzodiazepines Scrn NEGATIVE Urine Cocaine Screen NEGATIVE U Cannabinoids Screen NEGATIVE Ur Drug Screen Comment Ethyl Alcohol < 3.0 Radiography Diagnostic Testing: Clinical Impression(s) from Imaging Studies Chest X-Ray 10/03/24 13:49 IMPRESSION: No radiographic evidence of acute cardiopulmonary disease Reading Location: [facility] Discharge Plan Triage Chief Complaint: Substance Abuse ED Provider: Eric Joy Dx/Rx/DC Orders Clinical Impression: Substance abuse Prescriptions: No Action penicillin V potassium 500 mg tablet 500 mg PO 4X/DAY Qty: 40 0RF naproxen 500 mg tablet 500 mg PO BID Qty: 14 0RF dicyclomine 10 mg capsule 20 mg PO Q6H PRN PRN (Reason: abdominal pain) Qty: 20 0RF Primary Care Provider: Екатерина Lopez Referrals: [facility] Екатерина Gutierrez [Primary Care Provider] - Print Language: Maori Disposition Disposition: Acute Care Hospital [facility]
--- NOTE | 2024-10-03 15:36 | CM.ED ---
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 Patient reported that she overdosed two days ago but not seek medical attention. Patient presented to the ER today with her armoured corps officer to be medically cleared for inpatient rehab at [facility]. aerospace engineer officer armament, Ana Vasquez, requested call with update. SW spoke with patient regarding intentional overdose. Patient stated she was in a bad situation and that is why she overdosed. Patient did not share what the situation was just that she was no longer unsafe. Patient stated she had been clean for three months and had only used the one time she overdosed. Patient stated she is not suicidal at this time and just wants help through a rehab center. Patient was evaluated and medically cleared. Ana Vasquez was called at [phone] and message was left that patient was medically cleared and had discharged to go to [facility]. Katelynn Wong, ELECTRONICS INSPECTOR, TABLEAU DEVELOPER
== END 2024-10-03 15:16 | disposition home or self-care (01) ==
PROVIDERS: Emergency Provider Emergency Medicine; Visit Provider Emergency Medicine
DX: F19.10 Other psychoactive substance abuse, uncomplicated (principal); F60.3 Borderline personality disorder; F31.9 Bipolar disorder, unspecified; F41.9 Anxiety disorder, unspecified; F17.210 Nicotine dependence, cigarettes, uncomplicated; Z79.899 Other long term (current) drug therapy
CPT/HCPCS: 71045; 80053; 80307; 81001; 82077; 84703; 85025; 93005; 99282